=== PATIENT | female | born 1935 | race Caucasian/White ===

== ENCOUNTER 2017-06-05 09:32 | Emergency (ER) | payer MEDICARE ==
[~2017-06-05 09:32] MED LIST: COUM5TAB PO; FENO50TA PO; FISH1000 PO; METR250T15 PO; NIAC500 OR; SULF1TAB47 PO; TELM40 PO; WARF2.5 PO
[2017-06-05 09:37] VITALS: BP 143/65; PULSE 79; RESP 20; TEMP 97.9; O2SAT 94
[2017-06-05] MEDS ORDERED: MULT1TAB46 PO (09:49)
[2017-06-05] MEDS ORDERED: TELM5TAB PO (09:49)
[2017-06-05] MEDS ORDERED: ASPI-183 PO (09:49)
--- NOTE | 2017-06-05 10:44 | PD ---
HPI Chief Complaint: Abdominal Pain Time Seen by Provider: 10:42 Travel History International Travel<30 days: No Contact w/Intl Traveler<30days: No Traveled to known affect area: No History of Present Illness HPI 81-year-old female patient presents to the ER today because she has had several days' history of pelvic discomfort, vaginal brownish discharge, and burning on urination. She denies any nausea, vomiting, fevers, or any other symptoms. Modifying Factors: None Associated Signs & Symptoms: Vaginal discharge, urinary symptoms, pelvic discomfort Risk Factors: None PFSH Past Medical History Atrial Fibrillation: Yes Heart Rhythm Problems: Yes (A FIB) Cardiovascular Problems: Yes High Cholesterol: Yes Diabetes: No Diverticulitis: Yes Gastrointestinal Disorders: Yes (DIVERTICULITIS) Genitourinary: Yes (URGENCY) Headaches: Yes Hypertension: Yes Implanted Vascular Access Dvce: Yes Musculoskeletal: Yes (KNEES/SHOULDER SURG) Respiratory: Yes (NEW DX PULMONARY FIBROSIS) Thyroid Disease: Yes Triglycerides - High: Yes Past Surgical History Joint Replacement: Yes (KNEES) Other Surgery: Yes (IUD REMOVED "YEARS AGO") Social History Alcohol Use: Yes (RARE) Tobacco Use: No Substance Use: No Allergies-Medications (Allergen,Severity, Reaction): Coded Allergies: ampicillin (Unverified Allergy, Severe, 06/05/17) ciprofloxacin (Unverified Allergy, Severe, Rash, 06/05/17) levofloxacin (Unverified Allergy, Severe, Rash, 06/05/17) aspirin (Unverified Allergy, Intermediate, GASTRIC UPSET, 06/05/17) penicillin G (Unverified Allergy, Mild, Rash, 06/05/17) Reported Meds & Prescriptions Reported Meds & Active Scripts Active Reported Telmisartan 20 Mg Tab 20 Mg PO DAILY Aspirin 325 Mg Tab 325 Mg PO DAILY Multi Vitamin Daily (Multiple Vitamin) 1 Tab Tab 1 Tab PO DAILY Review of Systems Except as stated in HPI: all other systems reviewed are Neg Physical Exam Narrative GENERAL: Well-developed elderly white female patient currently in no acute distress. Awake and oriented 3. SKIN: Focused skin assessment warm/dry. HEAD: Atraumatic. Normocephalic. EYES: Pupils equal and round. No scleral icterus. No injection or drainage. ENT: No nasal bleeding or discharge. Mucous membranes pink and moist. NECK: Trachea midline. No JVD. CARDIOVASCULAR: Regular rate and rhythm. No murmur appreciated. RESPIRATORY: No accessory muscle use. Clear to auscultation. Breath sounds equal bilaterally. GASTROINTESTINAL: Abdomen soft, mild suprapubic tenderness without guarding or rebound, nondistended. Hepatic and splenic margins not palpable. GENITOURINARY: Normal external genitalia without lesions or erythema. Vaginal vault without blood or drainage. Cervical os was closed without drainage. No cervical motion tenderness. Uterus nontender and nonenlarged. Bilateral adnexa nontender without masses. MUSCULOSKELETAL: No obvious deformities. No clubbing. No cyanosis. No edema. NEUROLOGICAL: Awake and alert. No obvious cranial nerve deficits. Motor grossly within normal limits. Normal speech. PSYCHIATRIC: Appropriate mood and affect; insight and judgment normal. Data Data Last Documented VS Vital Signs Date Time Temp Pulse Resp B/P (MAP) Pulse Ox O2 Delivery O2 Flow Rate FiO2 06/05/17 09:37 97.9 79 20 143/65 (91) 94 Orders Orders Urinalysis - C+S If Indicated (06/05/17 09:49) Wet Prep Profile (06/05/17 11:09) Urine Culture (06/05/17 10:55) Labs Laboratory Tests Test 06/05/17 10:55 06/05/17 11:10 Urine Collection Type CLEAN CATCH Urine Color PINK Urine Turbidity MOD Urine pH 6.5 Urine Specific [place] 1.025 Urine Protein 100 mg/dL Urine Glucose (UA) NEG mg/dL Urine Ketones NEG mg/dL Urine Occult Blood LARGE Urine Nitrite NEG Urine Bilirubin NEG Urine Leukocyte Esterase LARGE Urine RBC INNUM /hpf Urine WBC 50-99 /hpf Urine Squamous Epithelial Cells > 8 /hpf Urine Bacteria MANY /hpf Microscopic Urinalysis Comment CULTURE INDICATED Urine Collection Time 10:55 Clue Cells (Wet Prep) NONE SEEN Vaginal Trichomonas (Wet Prep) NONE SEEN Vaginal Yeast (Wet Prep) NONE SEEN MDM Medical Decision Making Medical Screen Exam Complete: Yes Emergency Medical Condition: Yes Medical Record Reviewed: Yes Differential Diagnosis Pelvic discomfort, urinary symptoms, vaginal discharge: BV versus UTI versus vaginitis Narrative Course Pelvic exam is unremarkable for any signs of bleeding. She has a significant UTI which is suspect is was causing some of the symptoms. My plan would be to treat her UTI and have her follow-up with her primary care doctor. Return for new issues as needed. The plan has been discussed with her and she states understanding. Diagnosis Primary Impression: UTI (urinary tract infection) Med/Other Pt SpecificInfo: Prescription(s) given Scripts Nitrofurantoin Monohydrate Macrocrystals (Macrobid) 100 Mg Cap 100 MG PO BID for Infection for 7 Days, #14 CAP 0 Refills Prov: Perfecto Patton MD 06/05/17 Disposition: 01 DISCHARGE HOME Condition: Stable Perfecto Patton MD Jun 05, 2017 10:44
[2017-06-05 11:06] LABS: BILIRUBIN, URINE NEG (NEG); BLOOD, URINE LARGE (NEG); GLUCOSE,URINE NEG (NEG); KETONE, URINE NEG (NEG); NITRITE,URINE NEG (NEG); PH, URINE 6.5 (5.0-8.5); URINE LEUKOCYTE ESTERASE LARGE (NEG)
[2017-06-05 11:11] LABS: URINE COLOR PINK (YELLW/STRAW)
[2017-06-05 11:12] LABS: BACTERIA, URINE MANY /hpf; RBC, URINE INNUM /hpf (0-3); SQUAMOUS EPITHELIAL CELL URINE > 8 /hpf (0-5)
[2017-06-05] MEDS ORDERED: MACR100C2 PO (11:22)
[2017-06-15] MEDS ORDERED: Vitamins (13:55)
== END 2017-06-05 11:34 | disposition home or self-care (01) ==
LOC: PHED 09:32
DX: N39.0 Urinary tract infection, site not specified (principal); B96.20 Unspecified Escherichia coli [E. coli] as the cause of diseases classified elsewhere
CPT/HCPCS: 81001; 87077; 87086; 87186; 87210; 99284

== ENCOUNTER 2017-06-15 13:33 | Emergency (ER) | payer MEDICARE ==
[~2017-06-15] VITALS: Ht 152.4 cm; Wt 53.2 kg
[~2017-06-15 13:33] MED LIST changes: +ASPI-183 PO; -COUM5TAB PO; -FENO50TA PO; -FISH1000 PO; +MACR100C2 PO; -METR250T15 PO; +MULT1TAB46 PO; -NIAC500 OR; -SULF1TAB47 PO; -TELM40 PO; +TELM5TAB PO; -WARF2.5 PO
[2017-06-15 13:37] VITALS: BP 118/68; PULSE 113; RESP 18; TEMP 98; O2SAT 95
--- NOTE | 2017-06-15 13:53 | PD ---
HPI Chief Complaint: Complaint Time Seen by Provider: 13:42 Travel History International Travel<30 days: No Contact w/Intl Traveler<30days: No Traveled to known affect area: No History of Present Illness HPI The patient is a 81-year-old female who presents to the emergency department for dysuria. The patient was seen in the emergency department at the end of May diagnosed with urinary tract infection. The patient was placed on Macrobid, however, her symptoms did not improve. The patient was seen by her primary physician, Dr. Singh, on June 10 and was changed to Bactrim DS twice a day. The patient has been taking the antibiotics for the last 5-6 days, however, continues to have symptoms. She also complains of mild vaginal discharge which she describes as brown, occasionally brown clumps are noted in the urine. She denies any bleeding, denies any fever, nausea, or vomiting. She does complain of discomfort around the vaginal orifice when urinating. Symptoms are mild to moderate, not alleviated with Macrobid or Escherichia coli, and there are no known exacerbating factors. The patient denies any sexual activity. PFSH Past Medical History Atrial Fibrillation: Yes Heart Rhythm Problems: Yes (A FIB) Cardiovascular Problems: Yes High Cholesterol: Yes Diabetes: No Diverticulitis: Yes Gastrointestinal Disorders: Yes (DIVERTICULITIS) Genitourinary: Yes (URGENCY) Headaches: Yes Hypertension: Yes Implanted Vascular Access Dvce: Yes Musculoskeletal: Yes (KNEES/SHOULDER SURG) Respiratory: Yes (NEW DX PULMONARY FIBROSIS) Thyroid Disease: Yes Triglycerides - High: Yes ?: Not Past Surgical History Joint Replacement: Yes (KNEES) Other Surgery: Yes (IUD REMOVED "YEARS AGO") Social History Alcohol Use: Yes (RARE) Tobacco Use: No Substance Use: No Allergies-Medications (Allergen,Severity, Reaction): Coded Allergies: ampicillin (Verified Allergy, Severe, 06/15/17) ciprofloxacin (Verified Allergy, Severe, Rash, 06/15/17) levofloxacin (Verified Allergy, Severe, Rash, 06/15/17) aspirin (Verified Allergy, Intermediate, GASTRIC UPSET, 06/15/17) penicillin G (Verified Allergy, Mild, Rash, 06/15/17) Reported Meds & Prescriptions Reported Meds & Active Scripts Active [place] (Hydrocodone-Acetaminophen) 5-325 mg Tab 1 Tab PO Q6H PRN Reported [Vitamins] Multi Vitamin Daily (Multiple Vitamin) 1 Tab Tab 1 Tab PO DAILY Review of Systems Except as stated in HPI: all other systems reviewed are Neg General / Constitutional: No: Fever Gastrointestinal: No: Nausea, Vomiting, Abdominal Pain Genitourinary: Positive: Dysuria, Pelvic Pain, Discharge Skin: No Rash, No Itching Physical Exam Narrative GENERAL: Awake, alert, pleasant 81-year-old female who appears her stated age and is in no acute respiratory distress. SKIN: Focused skin assessment warm/dry. HEAD: Atraumatic. Normocephalic. EYES: No injection or drainage. ENT: No nasal bleeding or discharge. Mucous membranes pink and moist. NECK: Trachea midline. No JVD. GASTROINTESTINAL: Abdomen soft, non-tender, nondistended. No rebound tenderness. No guarding or rigidity. Back: No CVA tenderness. Genitourinary: External examination was performed in the presence of a female nurse. External examination reveals an excoriated labia with visible drainage from the vaginal orifice. There appears to be green to brownish liquid drainage from the vagina, unsure if this is related to a vaginal/rectal fistula versus vaginal mass. The patient has significant pain and a speckled examination and digital examination were unable to be obtained. MUSCULOSKELETAL: No obvious deformities. No clubbing. No cyanosis. No edema. NEUROLOGICAL: Awake and alert. No obvious cranial nerve deficits. Motor grossly within normal limits. Normal speech. PSYCHIATRIC: Appropriate mood and affect; insight and judgment normal. Data Data Last Documented VS Vital Signs Date Time Temp Pulse Resp B/P (MAP) Pulse Ox O2 Delivery O2 Flow Rate FiO2 06/15/17 13:37 98.0 113 18 118/68 (85) 95 Orders Orders Wet Prep Profile (06/15/17 14:37) Labs Laboratory Tests Test 06/15/17 14:44 Clue Cells (Wet Prep) NONE SEEN Vaginal Trichomonas (Wet Prep) NONE SEEN Vaginal Yeast (Wet Prep) NONE SEEN MDM Medical Decision Making Medical Screen Exam Complete: Yes Emergency Medical Condition: Yes Medical Record Reviewed: Yes Interpretation(s) Laboratory Tests Test 06/15/17 14:44 Clue Cells (Wet Prep) NONE SEEN Vaginal Trichomonas (Wet Prep) NONE SEEN Vaginal Yeast (Wet Prep) NONE SEEN Differential Diagnosis Differential diagnosis includes UTI, cystitis, nephrolithiasis, cervicitis, vaginitis, yeast infection, bacterial vaginosis. Narrative Course A UA was sent to lab. An external pelvic examination was performed in the presence of a female nurse. I reviewed the patient's EMR, she had a UA obtained and May 2017 which revealed innumerable RBCs, did reveal WBCs with bacteria, grew Escherichia coli that was pansensitive, was noted to be sensitive to Macrobid and Bactrim. Physical examination reveals drainage from the vaginal orifice, unsure if this is related to official between the rectum and vagina versus possibly underlying necrotic mass. The patient had a significant excoriation to the labia and was unable to tolerate speculum examination or visual examination. I believe the patient's previous UAs may be falsely positive secondary to fistula with possible stool that most of the drainage was liquid that was green to brown. I personally called the patient's primary physician, Dr. Jimmy jordan, and had a discussion with Dr. Singh. The patient will need outpatient follow-up with a roof foreman for examination under sedation to evaluate for possible mass versus fistula. Wet prep was obtained and will be sent to lab, however, I believe this is most likely related to fistula and excoriated skin. Wet prep is negative. The patient is advised to continue Bactrim and a follow-up with Dr. Singh tomorrow. Diagnosis Primary Impression: Pelvic pain in female Patient Instructions: General Instructions Additional Instructions: Continue antibiotics as previously directed. Pain medications as directed. Call Dr. Singh office on Friday for an appointment, may benefit from outpatient exam under sedation to evaluate for possible fistula versus mass. Med/Other Pt SpecificInfo: Prescription(s) given Scripts Hydrocodone-Acetaminophen ([place]) 5-325 mg Tab 1 TAB PO Q6H Y for PAIN, #15 TAB 0 Refills Prov: Kevin Campbell MD 06/15/17 Disposition: 01 DISCHARGE HOME Condition: Stable Kevin Campbell MD Jun 15, 2017 13:53
[2017-06-15] MEDS ORDERED: Vitamins ×2 (13:55)
[2017-06-15] MEDS ORDERED: NORC5TAB PO (14:47)
== END 2017-06-15 15:36 | disposition home or self-care (01) ==
LOC: PHED 13:33
DX: R10.2 Pelvic and perineal pain (principal); R30.0 Dysuria; R82.99 Other abnormal findings in urine; N89.8 Other specified noninflammatory disorders of vagina; I10 Essential (primary) hypertension; E07.9 Disorder of thyroid, unspecified; E78.5 Hyperlipidemia, unspecified; Z87.440 Personal history of urinary (tract) infections; Z86.79 Personal history of other diseases of the circulatory system; Z87.19 Personal history of other diseases of the digestive system; Z87.448 Personal history of other diseases of urinary system; Z87.39 Personal history of other diseases of the musculoskeletal system and connective tissue; Z87.09 Personal history of other diseases of the respiratory system
CPT/HCPCS: 87210; 99284

== ENCOUNTER 2017-06-27 10:34 | Inpatient (IN) | payer MEDICARE ==
[~2017-06-27] VITALS: Ht 152.4 cm; Wt 53.2 kg
[~2017-06-27 10:34] MED LIST changes: +NORC5TAB PO; +Vitamins
[2017-06-27 10:35] VITALS: BP 124/52; PULSE 64; RESP 14; TEMP 97.9; O2SAT 95
[2017-06-27] MEDS ORDERED: SODIUM CHLOR 0.9% 1000 ML INJ 1,000 ML IV ONE (11:15)
--- NOTE | 2017-06-27 11:26 | PD ---
HPI Chief Complaint: Fever Time Seen by Provider: 11:05 Travel History International Travel<30 days: No Contact w/Intl Traveler<30days: No Traveled to known affect area: No History of Present Illness HPI 81-year-old female PMH of paroxysmal A. fib, hypertension, diverticulitis, pulmonary fibrosis presents to the ED for evaluation of three-week history of passing stool through the urine. The patient endorses associated urinary urgency and passing gas through the vagina. She denies nausea, vomiting, abdominal pain. She endorses loose nonbloody bowel movement yesterday. She saw her primary care Dr. Singh and had an outpatient CT yesterday. 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 She was sent by Dr. Singh for admission and colorectal consult. PFSH Past Medical History Atrial Fibrillation: Yes Heart Rhythm Problems: Yes (A FIB) Cardiovascular Problems: Yes High Cholesterol: Yes Diabetes: No Diminished Hearing: No Diverticulitis: Yes Gastrointestinal Disorders: Yes (DIVERTICULITIS) Genitourinary: Yes (URGENCY) Headaches: Yes Hypertension: Yes Implanted Vascular Access Dvce: Yes Musculoskeletal: Yes (KNEES/SHOULDER SURG) Respiratory: Yes (NEW DX PULMONARY FIBROSIS) Thyroid Disease: Yes Triglycerides - High: Yes Past Surgical History Joint Replacement: Yes (KNEES) Other Surgery: Yes (IUD REMOVED "YEARS AGO") Social History Alcohol Use: Yes (RARE) Tobacco Use: No Substance Use: No Allergies-Medications (Allergen,Severity, Reaction): Coded Allergies: ampicillin (Verified Allergy, Severe, 06/15/17) ciprofloxacin (Verified Allergy, Severe, Rash, 06/15/17) levofloxacin (Verified Allergy, Severe, Rash, 06/15/17) Reported Meds & Prescriptions Reported Meds & Active Scripts Active [place] (Hydrocodone-Acetaminophen) 5-325 mg Tab 1 Tab PO Q6H PRN Reported Telmisartan 20 Mg Tab 20 Mg PO DAILY Aspirin EC (Aspirin) 325 Mg Tabdr 325 Mg PO DAILY [Vitamins] Multi Vitamin Daily (Multiple Vitamin) 1 Tab Tab 1 Tab PO DAILY Review of Systems Except as stated in HPI: all other systems reviewed are Neg Physical Exam Narrative GENERAL: Petite, frail white female in no acute distress.. SKIN: Focused skin assessment warm/dry. Multiple nevi HEAD: Normocephalic. EYES: No scleral icterus. No injection or drainage. NECK: Supple, trachea midline. No JVD or lymphadenopathy. CARDIOVASCULAR: Regular rate and rhythm without murmurs, gallops, or rubs. RESPIRATORY: Breath sounds clear and equal bilaterally. No accessory muscle use. GASTROINTESTINAL: Abdomen soft, non-tender, nondistended. Hypoactive bowel sounds. Deep palpation of the lower belly produces flatulence through the vagina. MUSCULOSKELETAL: No cyanosis, or edema. BACK: Nontender without obvious deformity. No CVA tenderness. Data Data Last Documented VS Vital Signs Date Time Temp Pulse Resp B/P (MAP) Pulse Ox O2 Delivery O2 Flow Rate FiO2 06/27/17 14:08 72 18 139/60 (86) 94 Room Air 06/27/17 11:31 3.00 06/27/17 11:31 98.2 Orders Orders Electrocardiogram (06/27/17 11:11) Complete Blood Count With Diff (06/27/17 11:11) Comprehensive Metabolic Panel (06/27/17 11:11) Prothrombin Time / Inr (Pt) (06/27/17 11:11) Act Partial Throm Time (Ptt) (06/27/17 11:11) Lactic Acid Sepsis Protocol (06/27/17 11:11) Blood Culture (06/27/17 11:11) Chest, Single Ap (06/27/17 11:11) Blood Glucose (06/27/17 11:11) Ecg Monitoring (06/27/17 11:11) Iv Access Insert/Monitor (06/27/17 11:11) Oximetry (06/27/17 11:11) Sodium Chlor 0.9% 1000 Ml Inj (Ns 1000 M (06/27/17 11:15) Admit Order (Ed Use Only) (06/27/17 14:25) Labs Laboratory Tests Test 06/27/17 11:54 06/27/17 13:07 White Blood Count 8.9 TH/MM3 Red Blood Count 4.30 MIL/MM3 Hemoglobin 13.2 GM/DL Hematocrit 39.1 % Mean Corpuscular Volume 90.9 FL Mean Corpuscular Hemoglobin 30.6 PG Mean Corpuscular Hemoglobin Concent 33.7 % Red Cell Distribution Width 13.8 % Platelet Count 481 TH/MM3 Mean Platelet Volume 9.2 FL Neutrophils (%) (Auto) 62.1 % Lymphocytes (%) (Auto) 23.5 % Monocytes (%) (Auto) 9.6 % Eosinophils (%) (Auto) 4.1 % Basophils (%) (Auto) 0.7 % Neutrophils # (Auto) 5.6 TH/MM3 Lymphocytes # (Auto) 2.1 TH/MM3 Monocytes # (Auto) 0.9 TH/MM3 Eosinophils # (Auto) 0.4 TH/MM3 Basophils # (Auto) 0.1 TH/MM3 CBC Comment DIFF FINAL Differential Comment Prothrombin Time 11.9 SEC Prothromb Time International Ratio 1.1 RATIO Activated Partial Thromboplast Time 27.3 SEC Blood Urea Nitrogen 14 MG/DL Creatinine 1.02 MG/DL Random Glucose 92 MG/DL Total Protein 8.1 GM/DL Albumin 3.0 GM/DL Calcium Level 10.1 MG/DL Alkaline Phosphatase 75 U/L Aspartate Amino Transf (AST/SGOT) 16 U/L Alanine Aminotransferase (ALT/SGPT) 13 U/L Total Bilirubin 0.4 MG/DL Sodium Level 135 MEQ/L Potassium Level 4.1 MEQ/L Chloride Level 102 MEQ/L Carbon Dioxide Level 25.2 MEQ/L Anion Gap 8 MEQ/L Estimat Glomerular Filtration Rate 52 ML/MIN Lactic Acid Level 2.2 mmol/L MDM Medical Decision Making Medical Screen Exam Complete: Yes Emergency Medical Condition: Yes Differential Diagnosis Diverticulitis versus colovesical fistula versus UTI versus sepsis versus other Narrative Course 81-year-old female PMH of paroxysmal A. fib, hypertension, diverticulitis, pulmonary fibrosis presents to the ED for evaluation of three-week history of passing stool through the urine. The patient endorses associated urinary urgency and passing gas through the vagina. She denies nausea, vomiting, abdominal pain. She endorses loose nonbloody bowel movement yesterday. She saw her primary care Dr. Singh and had an outpatient CT yesterday. 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 She was sent by Dr. Singh for admission and colorectal consult. I spoke with Dr. Singh who states that the patient has had some deterioration in her mental status over the last few visits. Her reports intermittent fever. Dr. Singh is concerned for sepsis. He states that the patient is almost completely dependent on her , cannot remember recent events and is generally deteriorating. The patient does rely on her to provide the history here in the ED. She is oriented to self and situation. Vitals reviewed. Physical exam reveals a thin, frail white female in no acute distress. Chest is CTA B. Abdomen soft, nontender. Palpation of the abdomen produces flatulence through the vagina. IV was established. Patient was administered 1 L normal saline. EKG rate 75, sinus rhythm first-degree AV block with occasional PVCs. LAD. No acute ST changes. Reviewed by Dr. Hess. CXR: Streaky interstitial opacities in both forearms, chronicity unknown per radiology read. No elevation of white count, evidence of anemia. Creatinine 1.02 Lactic acid 2.2. Urinalysis is unable to be performed secondary to the viscosity of the specimen. Culture pending. I spoke with Dr. Aponte who agrees to accept the patient to the medicine service. He'll order a colorectal consult. The patient is agreeable with this plan. Please see medicine notes for disposition. Sonia Medeiros Jun 27, 2017 11:26
[2017-06-27 11:31] VITALS: BP 112/64; PULSE 63; RESP 18; TEMP 98.2; O2SAT 96
[2017-06-27] MEDS ORDERED: TELM5TAB PO ×2 (11:41)
[2017-06-27] MEDS ORDERED: ASPI325T33 PO ×2 (11:41)
--- NOTE | 2017-06-27 11:53 | RADRPT ---
EXAM DATE/TIME: 06/27/2017 11:28 [facility] COMPARISON: No previous studies available for comparison. INDICATIONS : Fever, short of breath, lower abdominal pain MEDICAL HISTORY : Diverticulosis. SURGICAL HISTORY : None. ENCOUNTER: Initial ACUITY: 1 day PAIN SCORE: Non-responsive. LOCATION: Bilateral abdomen FINDINGS: A single AP portable erect view of the chest was obtained and demonstrates streaky coarse interstitia l opacities in both lungs with no focal consolidation or effusion. The heart size is at the upper [place] its of normal. Thereafter cruller maker calcifications in the aorta. The bony thorax is intact. CONCLUSION: Streaky interstitial opacities in both lungs. The chronicity of the findings is not k nown. This could represent more acute infiltrate such as pneumonia or pulmonary edema versus chronic scarring. Comparison with any old outside studies would be helpful. Sanket Recinos MD on June 27, 2017 at 11:49 Board Certified Radiologist. This report was verified electronically.
[2017-06-27 12:07] LABS: AUTOMATED NEUTROPHIL # 5.6 TH/MM3 (1.8-7.7); BASOPHIL # 0.1 TH/MM3 (0-0.2); BASOPHIL % 0.7 % (0.0-2.0); EOSINOPHIL # 0.4 TH/MM3 (0-0.4); EOSINOPHIL % 4.1 % (0.0-4.0); HEMATOCRIT 39.1 % (35.0-46.0); HEMO FLAGS DIFF FINAL; LYMPH % 23.5 % (9.0-44.0); LYMPHOCYTE # 2.1 TH/MM3 (1.0-4.8); MEAN CELL VOLUME 90.9 FL (80.0-100.0); MEAN CORPUSCULAR HEMOGLOBIN 30.6 PG (27.0-34.0); MEAN CORPUSCULAR HGB CONC 33.7 % (32.0-36.0); MONO % 9.6 % (0.0-8.0); NEUT % 62.1 % (16.0-70.0); PLATELET COUNT 481 TH/MM3 (150-450); RED CELL DISTRIBUTION WIDTH 13.8 % (11.6-17.2); WHITE BLOOD COUNT 8.9 TH/MM3 (4.0-11.0)
[2017-06-27 12:17] LABS: APTT (PATIENT) 27.3 SEC (24.3-30.1); INTERNATIONAL NORMALIZED RATIO 1.1 RATIO; PROTHROMBIN TIME - PATIENT 11.9 SEC (9.8-11.6)
[2017-06-27 14:00] LABS: ALT (GPT) 13 U/L (10-53); ANION GAP 8 MEQ/L (5-15); AST (GOT) 16 U/L (15-37); BICARBONATE 25.2 MEQ/L (21.0-32.0); BLOOD UREA NITROGEN 14 MG/DL (7-18); CHLORIDE 102 MEQ/L (98-107); GLOMERULAR FILTRATION RATE 52 ML/MIN (>89); POTASSIUM 4.1 MEQ/L (3.5-5.1); SODIUM (NA) 135 MEQ/L (136-145)
[2017-06-27 14:02] LABS: ALKALINE PHOSPHATASE 75 U/L (45-117); TOTAL BILIRUBIN ADULT 0.4 MG/DL (0.2-1.0)
[2017-06-27 14:08] VITALS: BP 139/60; PULSE 72; RESP 18; O2SAT 94
[2017-06-27 15:17] LABS: LACTIC ACID GHOST NOT REPORTABLE
--- NOTE | 2017-06-27 15:44 | HHI.HP ---
HPI Service [facility] Primary Care Physician Ede Singh MD, PhD Admission Diagnosis colovesical fistula Chief Complaint: f/c, confused shaking Travel History International Travel<30 Days: No Contact w/Intl Traveler <30 Da: No Traveled to Known Affected Are: No History of Present Illness Pt with hx afib and htn presents with 3 weeks of uti sx's and stool passing from the urine. she was seen and urine cx showed ecoli on 06/05. she was started on nitrofurantoin, changed to bactrim, then amoxicillin. yesterday she was sent to radiology and had CT a/p yesterday which showed diverticulosis and colovesicular fistula. She has been having shaking chills and fevers. says some confusion. Sent to ED to see CRS per pcp. Review of Systems Other f/c/shaking confusion stool in urine. Past Family Social History Past Medical History htn afib chf EF 25-30% echo 04/26 10/25..ef 30-35%. mod MR. pap 32 pulmonary fibrosis pulmonary nodules hyperparathyroidism depression ckd 3 melanoma shoulder arthropscopic surgery bilateral TKA diverticulosis/itis pt reports colonoscopy 2013: pandiverticulosis severe. Reported Medications Mccool (Hydrocodone-Acetaminophen) 5-325 mg Tab 1 Tab PO Q6H PRN Reported Telmisartan 20 Mg Tab 20 Mg PO DAILY Aspirin EC (Aspirin) 325 Mg Tabdr 325 Mg PO DAILY [Vitamins] Multi Vitamin Daily (Multiple Vitamin) 1 Tab Tab 1 Tab PO DAILY Allergies: Coded Allergies: ampicillin (Verified Allergy, Severe, 06/15/17) ciprofloxacin (Verified Allergy, Severe, Rash, 06/15/17) levofloxacin (Verified Allergy, Severe, Rash, 06/15/17) Family History nc Social History no tob occ etoh Physical Exam Vital Signs heart irreg lung cta abd s/nd/mild lower abd tenderness.bs ext no edema Vital Signs Date Time Temp Pulse Resp B/P (MAP) Pulse Ox O2 Delivery O2 Flow Rate FiO2 06/27/17 14:08 72 18 139/60 (86) 94 Room Air 06/27/17 11:31 18 Nasal Cannula 3.00 06/27/17 11:31 71 18 97 Nasal Cannula 2.00 06/27/17 11:31 98.2 63 18 112/64 (80) 96 Nasal Cannula 2.00 06/27/17 10:35 97.9 64 14 124/52 (76) 95 Laboratory Laboratory Tests Test 06/27/17 11:54 06/27/17 13:07 White Blood Count 8.9 Red Blood Count 4.30 Hemoglobin 13.2 Hematocrit 39.1 Mean Corpuscular Volume 90.9 Mean Corpuscular Hemoglobin 30.6 Mean Corpuscular Hemoglobin Concent 33.7 Red Cell Distribution Width 13.8 Platelet Count 481 Mean Platelet Volume 9.2 Neutrophils (%) (Auto) 62.1 Lymphocytes (%) (Auto) 23.5 Monocytes (%) (Auto) 9.6 Eosinophils (%) (Auto) 4.1 Basophils (%) (Auto) 0.7 Neutrophils # (Auto) 5.6 Lymphocytes # (Auto) 2.1 Monocytes # (Auto) 0.9 Eosinophils # (Auto) 0.4 Basophils # (Auto) 0.1 CBC Comment DIFF FINAL Differential Comment Prothrombin Time 11.9 Prothromb Time International Ratio 1.1 Activated Partial Thromboplast Time 27.3 Blood Urea Nitrogen 14 Creatinine 1.02 Random Glucose 92 Total Protein 8.1 Albumin 3.0 Calcium Level 10.1 Alkaline Phosphatase 75 Aspartate Amino Transf (AST/SGOT) 16 Alanine Aminotransferase (ALT/SGPT) 13 Total Bilirubin 0.4 Sodium Level 135 Potassium Level 4.1 Chloride Level 102 Carbon Dioxide Level 25.2 Anion Gap 8 Estimat Glomerular Filtration Rate 52 Lactic Acid Level 2.2 Date/Time Source Procedure Growth Status 06/27/17 11:51 Blood Peripheral Aerobic Blood Culture Pending Received 06/27/17 11:51 Blood Peripheral Anaerobic Blood Culture Pending Received Result Diagram: 06/27/17 1154 06/27/17 1154 Caprini VTE Risk Assessment Caprini Risk Assessment Model Point Value = 1 Point Value = 2 Point Value = 3 Point Value = 5 Age 41-60 Minor surgery BMI > 25 kg/m2 Swollen legs Varicose veins or History of unexplained or recurrent spontaneous Oral contraceptives or hormone replacement Sepsis (< 1 month) Serious lung disease, including pneumonia (< 1 month) Abnormal pulmonary function Acute myocardial infarction Congestive heart failure (< 1 month) History of inflammatory bowel disease Medical patient at bed rest Age 61-74 Arthroscopic surgery Major open surgery (> 45 min) Laparoscopic surgery (> 45 min) Malignancy Confined to bed (> 72 hours) Immobilizing plaster cast Central venous access Age >= 75 History of VTE Family history of VTE Factor V Leiden Prothrombin [id number] Lupus anticoagulant Anticardiolipin antibodies Elevated serum homocysteine Heparin-induced thrombocytopenia Other congenital or acquired thrombophilia Stroke (< 1 month) Elective arthroplasty Hip, pelvis, or leg fracture Acute spinal cord injury (< 1 month) Prophylaxis Regimen Total Risk Factor Score Risk Level Prophylaxis Regimen 0-1 Low Early ambulation 2 Moderate Order ONE of the following: *Sequential Compression Device (SCD) *Heparin 5000 units SQ BID 3-4 Higher Order ONE of the following medications: *Heparin 5000 units SQ TID *Enoxaparin/Lovenox 40 mg SQ daily (WT < 150 kg, CrCl > 30 mL/min) *Enoxaparin/Lovenox 30 mg SQ daily (WT < 150 kg, CrCl > 10-29 mL/min) *Enoxaparin/Lovenox 30 mg SQ BID (WT < 150 kg, CrCl > 30 mL/min) AND/OR *Sequential Compression Device (SCD) 5 or more Highest Order ONE of the following medications: *Heparin 5000 units SQ TID (Preferred with Epidurals) *Enoxaparin/Lovenox 40 mg SQ daily (WT < 150 kg, CrCl > 30 mL/min) *Enoxaparin/Lovenox 30 mg SQ daily (WT < 150 kg, CrCl > 10-29 mL/min) *Enoxaparin/Lovenox 30 mg SQ BID (WT < 150 kg, CrCl > 30 mL/min) AND *Sequential Compression Device (SCD) Assessment and Plan Problem List: (1) 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 colovesicular fistula. hx severe pandiverticulosis last c-scope 2012 3 weeks of uti sx's(ecoli 06/05) and now f/c/rigors. concern for bacteremia 2. systolic chf. chronic. compensated. EF 30-35% 3. ckd 3 4. pafib. controlled 5. depression 6. pulmonary nodules/fibrosis plan IVF and IV abx Place montiel catheter Discussed with CRS dr Orr who will evaluate her. resume home medication dvt prophylaxis f/u blood cx's (2) Afib ICD Codes: I48.91 - Unspecified atrial fibrillation Status: Chronic (3) CKD (chronic kidney disease) stage 3, GFR 30-59 ml/min ICD Codes: N18.3 - Chronic kidney disease, stage 3 (moderate) Status: Chronic (4) CHF (congestive heart failure) ICD Codes: I50.9 - Heart failure, unspecified Status: Chronic (5) HTN (hypertension) ICD Codes: I10 - Essential (primary) hypertension Status: Chronic Physician Certification 2 Midnight Certification Type: Admission for Inpatient Services Order for Inpatient Services 5The services are ordered in accordance with Medicare regulations or non- Medicare payer requirements, as applicable. In the case of services not specified as inpatient-only, they are appropriately provided as inpatient services in accordance with the 2-midnight benchmark. Estimated LOS (days): 5 5 days is the estimated time the patient will need to remain in the hospital, assuming treatment plan goals are met and no additional complications. Post-Hospital Plan: [facility] Ray Aponte MD Jun 27, 2017 15:44
[2017-06-27] MEDS ORDERED: SODIUM CHLOR 0.9% 1000 ML INJ 1,000 ML IV SCH (15:45)
[2017-06-27] MEDS ORDERED: ACETAMINOPHEN/HYDROcodone 325 MG/5 MG TAB PO PRN (15:45)
[2017-06-27] MEDS ORDERED: ONDANSETRON HCL 4 MG/2 ML VIAL IV PUSH PRN (16:00)
[2017-06-27] MEDS ORDERED: ACETAMINOPHEN 325 MG TAB PO PRN (16:00)
[2017-06-27] MEDS: SODIUM CHLOR 0.9% 1000 ML INJ 1,000 ML IV SCH (16:00)
[2017-06-27 17:00] VITALS: BP 123/56; PULSE 69; RESP 17; TEMP 97.5; O2SAT 93
[2017-06-27] MEDS: cefTRIAXone INJ 1,000 MG in SODIUM CHLORIDE 0.9% INJ 100 ML IV SCH (18:08)
--- NOTE | 2017-06-27 18:22 | EKG ---
Date Performed: 06/27/2017 Time Performed: 11:39:59 PTAGE: 81 years EKG: Sinus rhythm WITH FIRST DEGREE AV BLOCK WITH OCCASIONAL SUPRAVENTRICULAR PREMATURE COMPLEXES MARKED LEFT AXIS DEV IATION LOW QRS VOLTAGE IN PRECORDIAL LEADS PATTERN CONSISTENT WITH PULMONARY DISEASE POSSIBLE RIGHT V ENTRICULAR CONDUCTION DELAY ABNORMAL ECG Compared to PREVIOUS TRACING , the PVCs are no longer present, otherwise no significant change. There is poor R-wave progression across precordium which has not changed. PREVIOUS TRACIN08/12/2012 12. 12 DOCTOR: Ray King Interpretating Date/Time 06/27/2017 18:21:50
[2017-06-27 20:00] VITALS: BP 118/56; PULSE 56; RESP 19; TEMP 96.4; O2SAT 95
--- NOTE | 2017-06-27 23:05 | HHI.PR ---
Subjective Remarks C/R Surg H & P reviewed 81 Yo w female with 3 week hx abd pain, then fecaluria no BRB, N/V, ? fever/chills Objective - Vital Signs Date Time Temp Pulse Resp B/P (MAP) Pulse Ox O2 Delivery O2 Flow Rate FiO2 06/27/17 20:00 96.4 56 19 118/56 (76) 95 06/27/17 14:08 Room Air 06/27/17 11:31 3.00 Result Diagram: 06/27/17 1154 06/27/17 1154 Objective Remarks Pe alert Abd - soft, mildly tender LLQ, no mass, no guarding A/P Assessment and Plan Imp: Diverticulitis with colo-vesicle fistula non-toxic exam try montiel to clean out bladder OOB empiric Ab's Carlo Orr MD Jun 27, 2017 23:05
[2017-06-28] VITALS: BP 123/56; PULSE 81; RESP 19; TEMP 97.2; O2SAT 95
[2017-06-28] MEDS: SODIUM CHLOR 0.9% 1000 ML INJ 1,000 ML IV SCH (05:20)
[2017-06-28 06:57] LABS: AUTOMATED NEUTROPHIL # 3.7 TH/MM3 (1.8-7.7); BASOPHIL # 0.1 TH/MM3 (0-0.2); BASOPHIL % 1.2 % (0.0-2.0); EOSINOPHIL # 0.6 TH/MM3 (0-0.4); EOSINOPHIL % 9.1 % (0.0-4.0); HEMATOCRIT 30.5 % (35.0-46.0); HEMO FLAGS DIFF FINAL; LYMPH % 22.5 % (9.0-44.0); LYMPHOCYTE # 1.5 TH/MM3 (1.0-4.8); MEAN CELL VOLUME 91.2 FL (80.0-100.0); MEAN CORPUSCULAR HEMOGLOBIN 30.2 PG (27.0-34.0); MEAN CORPUSCULAR HGB CONC 33.2 % (32.0-36.0); MONO % 12.5 % (0.0-8.0); NEUT % 54.7 % (16.0-70.0); PLATELET COUNT 367 TH/MM3 (150-450); RED BLOOD COUNT 3.34 MIL/MM3 (4.00-5.30); RED CELL DISTRIBUTION WIDTH 13.2 % (11.6-17.2); WHITE BLOOD COUNT 6.8 TH/MM3 (4.0-11.0)
[2017-06-28 07:19] LABS: BICARBONATE 25.6 MEQ/L (21.0-32.0); POTASSIUM 4.1 MEQ/L (3.5-5.1)
[2017-06-28 08:00] VITALS: BP 107/53; PULSE 63; RESP 14; TEMP 97.6; O2SAT 95
[2017-06-28] MEDS ORDERED: LOSARTAN 25 MG TAB PO SCH (09:00)
--- NOTE | 2017-06-28 10:05 | HHI.PR ---
Subjective Remarks Pt complaints of discomfort from the Montiel Catheter Pt with feculant urine in Montiel bag Afebrile Objective Vitals Vital Signs Date Time Temp Pulse Resp B/P (MAP) Pulse Ox O2 Delivery O2 Flow Rate FiO2 06/28/17 08:00 97.6 63 14 107/53 (71) 95 06/28/17 00:00 97.2 81 19 123/56 (78) 95 06/27/17 20:00 96.4 56 19 118/56 (76) 95 06/27/17 17:00 97.5 69 17 123/56 (78) 93 06/27/17 14:08 72 18 139/60 (86) 94 Room Air 06/27/17 11:31 18 Nasal Cannula 3.00 06/27/17 11:31 71 18 97 Nasal Cannula 2.00 06/27/17 11:31 98.2 63 18 112/64 (80) 96 Nasal Cannula 2.00 06/27/17 10:35 97.9 64 14 124/52 (76) 95 Result Diagram: 06/28/17 0635 06/28/17 0635 Other Results Laboratory Tests Test 06/27/17 11:54 06/27/17 13:07 06/28/17 06:35 White Blood Count 8.9 TH/MM3 6.8 TH/MM3 Red Blood Count 4.30 MIL/MM3 3.34 MIL/MM3 Hemoglobin 13.2 GM/DL 10.1 GM/DL Hematocrit 39.1 % 30.5 % Mean Corpuscular Volume 90.9 FL 91.2 FL Mean Corpuscular Hemoglobin 30.6 PG 30.2 PG Mean Corpuscular Hemoglobin Concent 33.7 % 33.2 % Red Cell Distribution Width 13.8 % 13.2 % Platelet Count 481 TH/MM3 367 TH/MM3 Mean Platelet Volume 9.2 FL 8.2 FL Neutrophils (%) (Auto) 62.1 % 54.7 % Lymphocytes (%) (Auto) 23.5 % 22.5 % Monocytes (%) (Auto) 9.6 % 12.5 % Eosinophils (%) (Auto) 4.1 % 9.1 % Basophils (%) (Auto) 0.7 % 1.2 % Neutrophils # (Auto) 5.6 TH/MM3 3.7 TH/MM3 Lymphocytes # (Auto) 2.1 TH/MM3 1.5 TH/MM3 Monocytes # (Auto) 0.9 TH/MM3 0.8 TH/MM3 Eosinophils # (Auto) 0.4 TH/MM3 0.6 TH/MM3 Basophils # (Auto) 0.1 TH/MM3 0.1 TH/MM3 CBC Comment DIFF FINAL DIFF FINAL Differential Comment Prothrombin Time 11.9 SEC Prothromb Time International Ratio 1.1 RATIO Activated Partial Thromboplast Time 27.3 SEC Blood Urea Nitrogen 14 MG/DL 13 MG/DL Creatinine 1.02 MG/DL 0.88 MG/DL Random Glucose 92 MG/DL 84 MG/DL Total Protein 8.1 GM/DL Albumin 3.0 GM/DL Calcium Level 10.1 MG/DL 9.3 MG/DL Alkaline Phosphatase 75 U/L Aspartate Amino Transf (AST/SGOT) 16 U/L Alanine Aminotransferase (ALT/SGPT) 13 U/L Total Bilirubin 0.4 MG/DL Sodium Level 135 MEQ/L 137 MEQ/L Potassium Level 4.1 MEQ/L 4.1 MEQ/L Chloride Level 102 MEQ/L 107 MEQ/L Carbon Dioxide Level 25.2 MEQ/L 25.6 MEQ/L Anion Gap 8 MEQ/L 4 MEQ/L Estimat Glomerular Filtration Rate 52 ML/MIN 62 ML/MIN Lactic Acid Level 2.2 mmol/L 0.7 mmol/L Imaging Last Impressions Chest X-Ray 06/27/17 1111 Signed Impressions: Service Date/Time: Tuesday, June 27, 2017 11:28 - CONCLUSION: Streaky interstitial opacities in both lungs. The chronicity of the findings is not known. This could represent more acute infiltrate such as pneumonia or pulmonary edema versus chronic scarring. Comparison with any old outside studies would be helpful. Sanket Recinos MD Objective Remarks General: NAD, AAOx3 Chest: CTA Cardiac: Regular Abd: +BS, soft ND/NT : Montiel cath in place with feculent urine in Montiel bag Ext: No edema A/P Problem List: (1) Colovesical fistula ICD Codes: N32.1 - Vesicointestinal fistula Status: Acute Plan: Pt is an 81 y/o female with HTN, A. fib, hx of systolic CHF with EF 30-35% on 2D echo 10/2016, pulmonary fibrosis, and hx of diverticulitis Colovesicular fistula Hx severe medina-diverticulosis - Pt presented to the ED with complaints of 3 weeks of UTI sx's and stool passing from the urine with fevers/chills/rigors. She was seen by her PCP and urine cx showed E. coli on 06/05. She was started on nitrofurantoin, changed to Bactrim, then amoxicillin on 06/25. The day prior to admission she was sent to radiology and had CT abd /pelvis which showed diverticulosis and colovesicular fistula. - Her Last c-scope was 2012 - Pt admitted with concerns for bacteremia - Blood cultures are pending - Pt was started on Rocephin - Appreciate Colorectal surgery consult - Montiel catheter in place, monitor output - IVF - Dr. Orr has cleared the pt for discharge. He wants the patient treated with Abx prior to any surgical intervention. We will have the nurse flush out as much feculent material from the montiel cath as she can and then remove the Montiel per Dr. Guevara recommendations. - Pt to be prescribed Bactrim DS x 7 days - She is to followup with Dr. Singh next week - She is to followup with Dr. Orr in the next 1-2 weeks for scheduling surgical intervention. - Supportive care Systolic CHF, chronic, currently compensated, EF 30-35% - Cont. ARB - Monitor for any signs of volume overload CKD, stage 3 - Stable Paroxysmal A.fib, currently rate controlled Depression Pulmonary nodules/fibrosis (2) Afib ICD Codes: I48.91 - Unspecified atrial fibrillation Status: Chronic (3) CKD (chronic kidney disease) stage 3, GFR 30-59 ml/min ICD Codes: N18.3 - Chronic kidney disease, stage 3 (moderate) Status: Chronic (4) CHF (congestive heart failure) ICD Codes: I50.9 - Heart failure, unspecified Status: Chronic (5) HTN (hypertension) ICD Codes: I10 - Essential (primary) hypertension Status: Chronic Assessment and Plan Patient examined. Assessment and plan formulated with Kristie Chin PA-C. I agree with the above. colovesicular fistula. blood cx ngtd recent urine cx ecoli Dr Orr ok with d/c home and f/u office for outpt arrangement for resection. Montiel placed and bladder flushed. Give iv abx again today and then resume bactrim instead of amoxacillin. updated . Kristie Chin Jun 28, 2017 10:05 Ray Aponte MD Jun 28, 2017 15:00
[2017-06-28 12:00] VITALS: BP 141/61; PULSE 67; RESP 16; TEMP 96.5; O2SAT 95
[2017-06-28] MEDS ORDERED: BACT800T5 PO (13:06)
[2017-06-28] MEDS: cefTRIAXone INJ 1,000 MG in SODIUM CHLORIDE 0.9% INJ 100 ML IV SCH (14:41)
--- NOTE | 2017-06-28 17:07 | MB ---
cc: KRISTA RAMSEY M.D. DATE OF CONSULTATION: 06/27/2017. REASON FOR CONSULTATION: Diverticulitis with colovesical fistula. HISTORY OF PRESENT ILLNESS: Ms. Leach is a very pleasant 81-year-old female who has about a three week history of abdominal discomfort and lower abdominal discomfort which progressed to passing stool and air in her urine. The patient had a urine culture previously, which grew E coli and was started on some antibiotics. Her symptoms continued despite antibiotic treatment and she finally had a CT scan, which showed diverticulosis and probable colovesical fistula. She continues to have some slight confusion but denies any fever. She has been having some shaking chills. She denies any rectal bleeding. No nausea or vomiting. No diarrhea. Her appetite has remained good and she may have lost a few pounds but unclear. She was sent to the emergency room for additional evaluation and workup. PAST MEDICAL HISTORY: 1. History of high blood pressure. 2. Atrial fibrillation. 3. Pulmonary fibrosis. 4. Hyperparathyroidism. 5. Melanoma. PAST SURGICAL HISTORY: 1. Arthroscopic shoulder surgery. 2. Bilateral total knee arthroplasty. 3. History of previous diverticular attacks. Last colonoscopy in 2012. MEDICATIONS: Please see admitting list. ALLERGIES: 1. AMPICILLIN. 2. CIPRO. 3. LEVAQUIN. FAMILY HISTORY: No history of colon or rectal cancer. SOCIAL HISTORY: The patient denies tobacco use. Only occasional rare alcohol intake. PHYSICAL EXAMINATION: GENERAL: A very pleasant older female in no acute distress. HEAD, EYES, EARS, NOSE, THROAT: Remarkable for pink membranes. Nonicteric sclerae. NECK: A little stiff without adenopathy. CHEST: Relatively clear. Symmetrically expanding. HEART: Slightly irregular rhythm. ABDOMEN: Soft and minimally distended and not really tight. No tympany. No rebound or guarding. No masses noted. Slight tenderness to the lower abdomen. EXTREMITIES: No cyanosis or clubbing and minimal trace pedal edema. LABORATORY STUDIES: Laboratory studies were reviewed. CT scan shows inflammatory changes with extensive diverticular disease and probable colovesical fistula. Urine culture is pending. IMPRESSION: An 81-year-old female with previous diverticular disease now with obvious colovesical fistula. She seems fairly stable. She has been started on antibiotics and IV fluid hydration. She is able to tolerate liquids. I would potentially like to wait a little longer prior to bringing her in for definitive surgical resection. The risks, benefits, and alternatives were discussed and if she cannot tolerate a diet or maintain relatively free from overt infection, then she might have to have the surgery moved up sooner with a higher chance of having a temporary colostomy or an ileostomy. We will see how she does over the next 24 to 48 hours. MD LEIF Ware/CLAIRE /4:55 PM /5:02 PM
== END 2017-06-28 16:55 | disposition home or self-care (01) | DRG 699 ==
LOC: NEPC 10:34 → NEDA 14:27 → N07B 16:40
PROVIDERS: ADMIT Hospitalist; ATTEND Hospitalist
DX: N32.1 Vesicointestinal fistula (principal); I50.22 Chronic systolic (congestive) heart failure; J84.10 Pulmonary fibrosis, unspecified; I13.0 Hypertensive heart and chronic kidney disease with heart failure and stage 1 through stage 4 chronic kidney disease, or unspecified chronic kidney disease; I48.0 Paroxysmal atrial fibrillation; N18.3 Chronic kidney disease, stage 3 (moderate); I44.0 Atrioventricular block, first degree; K57.30 Diverticulosis of large intestine without perforation or abscess without bleeding; I34.0 Nonrheumatic mitral (valve) insufficiency; E21.3 Hyperparathyroidism, unspecified; F32.9 Major depressive disorder, single episode, unspecified; Z85.820 Personal history of malignant melanoma of skin; Z88.1 Allergy status to other antibiotic agents; Z96.653 Presence of artificial knee joint, bilateral
CPT/HCPCS: 71010; 80048; 80053; 83605; 85025; 85610; 85730; 87040; 93005; 96360; 96361; J0696; J2405; J7030

== ENCOUNTER → 2017-07-22 | Outpatient (CLI) | payer MEDICARE ==
[~2017-07-22] MED LIST changes: -ASPI-183 PO; +ASPI325T33 PO; +BACT800T5 PO; +FOLI400T PO; +IRON18TA PO; -MACR100C2 PO; +MEGA RED PO; +PHILCAP2 PO; +VITA100018 PO; +VITA500T35 PO
[2017-07-22 09:24] LABS: AUTOMATED NEUTROPHIL # 16.7 TH/MM3 (1.8-7.7); BASOPHIL % 0.1 % (0.0-2.0); HEMATOCRIT 34.1 % (35.0-46.0); HEMO FLAGS DIFF FINAL; LYMPH % 6.6 % (9.0-44.0); LYMPHOCYTE # 1.3 TH/MM3 (1.0-4.8); MEAN CELL VOLUME 91.4 FL (80.0-100.0); MEAN CORPUSCULAR HEMOGLOBIN 30.2 PG (27.0-34.0); NEUT % 86.3 % (16.0-70.0); PLATELET COUNT 482 TH/MM3 (150-450); RED BLOOD COUNT 3.73 MIL/MM3 (4.00-5.30); RED CELL DISTRIBUTION WIDTH 14.6 % (11.6-17.2); WHITE BLOOD COUNT 19.4 TH/MM3 (4.0-11.0)
[2017-07-22 09:33] LABS: INTERNATIONAL NORMALIZED RATIO 1.3 RATIO; PROTHROMBIN TIME - PATIENT 12.8 SEC (9.8-11.6)
[2017-07-22 10:07] LABS: ANION GAP 12 MEQ/L (5-15); AST (GOT) 21 U/L (15-37); BICARBONATE 23.1 MEQ/L (21.0-32.0); BLOOD UREA NITROGEN 68 MG/DL (7-18); CHLORIDE 94 MEQ/L (98-107); GLOMERULAR FILTRATION RATE 24 ML/MIN (>89); GLUCOSE,FASTING 125 MG/DL (74-99); POTASSIUM 4.4 MEQ/L (3.5-5.1); SODIUM (NA) 129 MEQ/L (136-145)
[2017-07-22 10:09] LABS: ALT (GPT) 14 U/L (10-53)
[2017-07-22 10:12] LABS: ALKALINE PHOSPHATASE 66 U/L (45-117); TOTAL BILIRUBIN ADULT 0.4 MG/DL (0.2-1.0)
== END ==
LOC: CPRE 08:43
PROVIDERS: ATTEND Colon & Rectal Surgery
DX: Z01.810 Encounter for preprocedural cardiovascular examination (principal); Z01.811 Encounter for preprocedural respiratory examination; Z01.812 Encounter for preprocedural laboratory examination; Z79.01 Long term (current) use of anticoagulants; N32.1 Vesicointestinal fistula
CPT/HCPCS: 36415; 80053; 85025; 85610; 85730

== ENCOUNTER 2017-07-23 09:59 | Inpatient (IN) | payer MEDICARE ==
[~2017-07-23] VITALS: Ht 162.6 cm; Wt 62.2 kg
[2017-07-23] VITALS (10 sets, daily range): BP systolic 97–123; BP diastolic 51–64; PULSE 97–128; RESP 20–40; TEMP 98.2–98.8; O2SAT 92–96
[~2017-07-23 09:59] MED LIST changes: -MEGA RED PO; -PHILCAP2 PO
[2017-07-23] MEDS ORDERED: SODIUM CHLORID 0.9% 500 ML INJ 500 ML IV ONE (10:15)
[2017-07-23] MEDS ORDERED: ONDANSETRON HCL 4 MG/2 ML VIAL IVP ONE (10:15)
[2017-07-23] MEDS ORDERED: SODIUM CHLORIDE 0.9% FLUSH 10 ML FLUSH IVF PRN (10:15)
--- NOTE | 2017-07-23 10:22 | PD ---
HPI Chief Complaint: Syncope/Near-Syncope Time Seen by Provider: 10:07 Travel History International Travel<30 days: No Contact w/Intl Traveler<30days: No Traveled to known affect area: No History of Present Illness HPI The patient is a 81-year-old female who presents to the emergency department via EMS from home after an apparent syncopal episode in the bathroom. According to EMS, via the patient's 's report, the patient was in the bathroom when she stood up and then had a syncopal episode. EMS states they found the patient on the bathroom floor with emesis. They noted the patient was in atrial fibrillation with a heart rate that varied between the 140s and 150s with a blood pressure in the 80s. Therefore, they administer the patient an IV fluid bolus and then Cardizem 20 mg intravenously which brought the patient's heart rate down into the 80s and 90s. The patient does have previous history of atrial fibrillation according to EMS. Upon arrival the patient was somewhat lethargic and a poor historian. The states that the patient is scheduled to undergo surgery by Dr. Orr for a colovesicular fistula next Friday for recurrent urinary tract infections. The patient denies any chest pain, shortness of breath, does admit to vomiting. She denies any current abdominal pain. However she is a somewhat limited historian secondary to her current clinical condition. PFSH Past Medical History Atrial Fibrillation: Yes Autoimmune Disease: No Anxiety: No Depression: No Heart Rhythm Problems: Yes (Hx of Afib) Cancer: Yes Cardiovascular Problems: Yes High Cholesterol: Yes Chemotherapy: No Diabetes: No Diminished Hearing: No Diverticulitis: Yes Endocrine: No Gastrointestinal Disorders: Yes (DIVERTICULITIS) Genitourinary: Yes (colovesical fistula) Headaches: Yes Hypertension: Yes Immune Disorder: No Implanted Vascular Access Dvce: Yes Musculoskeletal: No Neurologic: No Psychiatric: No Respiratory: No Radiation Therapy: No Thyroid Disease: Yes Triglycerides - High: Yes Past Surgical History Joint Replacement: Yes (KNEES) Other Surgery: Yes (IUD REMOVED "YEARS AGO") Social History Alcohol Use: Yes (RARE) Tobacco Use: No Substance Use: No Allergies-Medications (Allergen,Severity, Reaction): Coded Allergies: ampicillin (Verified Allergy, Severe, 07/23/17) ciprofloxacin (Verified Allergy, Severe, Rash, 07/23/17) levofloxacin (Verified Allergy, Severe, Rash, 07/23/17) Reported Meds & Prescriptions Reported Meds & Active Scripts Active Bactrim DS (Sulfamethoxazole-Trimethoprim) 800-160 Mg Tab 1 Tab PO BID Reported [Franklin Red] 1 Cap PO DAILY Xamarin (Probiotic Product) 1.5 Billion Cell Cap 1 Cap PO DAILY Iron (Ferrous Sulfate) 18 Mg Tab 18 Mg PO DAILY Vitamin D3 (Cholecalciferol) 1,000 Unit Tab 1,000 Units PO DAILY Folic Acid 0.4 Mg Tab 400 Mcg PO DAILY Vitamin B12 (Cyanocobalamin) 500 Mcg Tab 500 Mcg PO DAILY Telmisartan 20 Mg Tab 20 Mg PO DAILY Aspirin EC (Aspirin) 325 Mg Tabdr 325 Mg PO DAILY Review of Systems Except as stated in HPI: all other systems reviewed are Neg General / Constitutional: No: Fever HENT: Positive: Lightheadedness Cardiovascular: Positive: Irregular Rhythm, Tachycardia, Syncope, No: Chest Pain or Discomfort Respiratory: No: Shortness of Breath Gastrointestinal: Positive: Nausea, Vomiting, No: Abdominal Pain Genitourinary: Positive: Other (history of recurrent UTIs) Musculoskeletal: Positive: Weakness Neurologic: Positive: Syncope Physical Exam Narrative GENERAL: Awake, somewhat lethargic 81-year-old female appears her stated age and is in no acute respiratory distress. SKIN: Focused skin assessment warm/dry. HEAD: Atraumatic. Normocephalic. EYES: Pupils equal and round. No injection or drainage. ENT: No nasal bleeding or discharge. Slightly dry mucous membranes with dried emesis on the right side of the mouth. NECK: Trachea midline. No JVD. CARDIOVASCULAR: Irregularly irregular with a heart rate in the 90s. RESPIRATORY: No accessory muscle use. Clear to auscultation. Breath sounds equal bilaterally. GASTROINTESTINAL: Abdomen soft, non-tender, nondistended. No rebound tenderness. Back: No CVA tenderness. MUSCULOSKELETAL: No obvious deformities. No clubbing. No cyanosis. No edema. NEUROLOGICAL: Awake, however, somewhat lethargic. Oriented to person, but not month or year. PSYCHIATRIC: Appropriate mood and affect; insight and judgment normal. Data Data Last Documented VS Vital Signs Date Time Temp Pulse Resp B/P (MAP) Pulse Ox O2 Delivery O2 Flow Rate FiO2 07/23/17 10:47 95 Room Air 07/23/17 10:10 98.2 97 40 Orders Orders Electrocardiogram (07/23/17 10:15) Complete Blood Count With Diff (07/23/17 10:15) Comprehensive Metabolic Panel (07/23/17 10:15) Magnesium (Mg) (07/23/17 10:15) Ckmb (Isoenzyme) Profile (07/23/17 10:15) Troponin I (07/23/17 10:15) Act Partial Throm Time (Ptt) (07/23/17 10:15) Prothrombin Time / Inr (Pt) (07/23/17 10:15) Urinalysis - C+S If Indicated (07/23/17 10:15) Chest, Single Ap (07/23/17 10:15) Ecg Monitoring (07/23/17 10:15) Iv Access Insert/Monitor (07/23/17 10:15) Oximetry (07/23/17 10:15) Ondansetron Inj (Zofran Inj) (07/23/17 10:15) Sodium Chloride 0.9% Flush (Ns Flush) (07/23/17 10:15) Orthostatic Vital Signs (07/23/17 10:15) Sodium Chlorid 0.9% 500 Ml Inj (Ns 500 M (07/23/17 10:15) Lactic Acid (07/23/17 10:15) Blood Culture (07/23/17 10:15) Sodium Chlorid 0.9% 500 Ml Inj (Ns 500 M (07/23/17 10:48) Ceftriaxone Inj (Rocephin Inj) (07/23/17 11:00) Sodium Chlor 0.9% 1000 Ml Inj (Ns 1000 M (07/23/17 11:15) CKMB (07/23/17 10:15) CKMB% (07/23/17 10:15) Sodium Chlor 0.9% 1000 Ml Inj (Ns 1000 M (07/23/17 11:30) Ct Brain W/O Iv Contrast(Rout) (07/23/17 ) Ct Abd/Pel W/O Iv Contrast (07/23/17 ) Admit Order (Ed Use Only) (07/23/17 12:04) Labs Laboratory Tests Test 07/23/17 10:15 White Blood Count 21.5 TH/MM3 Red Blood Count 3.42 MIL/MM3 Hemoglobin 10.3 GM/DL Hematocrit 31.2 % Mean Corpuscular Volume 91.0 FL Mean Corpuscular Hemoglobin 29.9 PG Mean Corpuscular Hemoglobin Concent 32.9 % Red Cell Distribution Width 14.4 % Platelet Count 457 TH/MM3 Mean Platelet Volume 8.8 FL Neutrophils (%) (Auto) 82.9 % Lymphocytes (%) (Auto) 8.4 % Monocytes (%) (Auto) 8.6 % Eosinophils (%) (Auto) 0.0 % Basophils (%) (Auto) 0.1 % Neutrophils # (Auto) 17.8 TH/MM3 Lymphocytes # (Auto) 1.8 TH/MM3 Monocytes # (Auto) 1.9 TH/MM3 Eosinophils # (Auto) 0.0 TH/MM3 Basophils # (Auto) 0.0 TH/MM3 CBC Comment DIFF FINAL Differential Comment Prothrombin Time 14.9 SEC Prothromb Time International Ratio 1.5 RATIO Activated Partial Thromboplast Time 21.4 SEC Blood Urea Nitrogen 108 MG/DL Creatinine 3.89 MG/DL Random Glucose 99 MG/DL Total Protein 7.5 GM/DL Albumin 2.7 GM/DL Calcium Level 10.8 MG/DL Magnesium Level 2.4 MG/DL Alkaline Phosphatase 55 U/L Aspartate Amino Transf (AST/SGOT) 40 U/L Alanine Aminotransferase (ALT/SGPT) 17 U/L Total Bilirubin 0.5 MG/DL Sodium Level 126 MEQ/L Potassium Level 5.5 MEQ/L Chloride Level 89 MEQ/L Carbon Dioxide Level 22.1 MEQ/L Anion Gap 15 MEQ/L Estimat Glomerular Filtration Rate 11 ML/MIN Lactic Acid Level 5.2 mmol/L Total Creatine Kinase 412 U/L Creatine Kinase MB 2.6 NG/ML Creatine Kinase MB % 0.6 % Troponin I 0.04 NG/ML MDM Medical Decision Making Medical Screen Exam Complete: Yes Emergency Medical Condition: Yes Medical Record Reviewed: Yes Interpretation(s) EKG reveals atrial fibrillation/flutter with multifocal PVCs. Second EKG reveals sinus tachycardia with right bundle-branch block morphology and PVC. Laboratory Tests Test 07/23/17 10:15 White Blood Count 21.5 TH/MM3 Red Blood Count 3.42 MIL/MM3 Hemoglobin 10.3 GM/DL Hematocrit 31.2 % Mean Corpuscular Volume 91.0 FL Mean Corpuscular Hemoglobin 29.9 PG Mean Corpuscular Hemoglobin Concent 32.9 % Red Cell Distribution Width 14.4 % Platelet Count 457 TH/MM3 Mean Platelet Volume 8.8 FL Neutrophils (%) (Auto) 82.9 % Lymphocytes (%) (Auto) 8.4 % Monocytes (%) (Auto) 8.6 % Eosinophils (%) (Auto) 0.0 % Basophils (%) (Auto) 0.1 % Neutrophils # (Auto) 17.8 TH/MM3 Lymphocytes # (Auto) 1.8 TH/MM3 Monocytes # (Auto) 1.9 TH/MM3 Eosinophils # (Auto) 0.0 TH/MM3 Basophils # (Auto) 0.0 TH/MM3 CBC Comment DIFF FINAL Differential Comment Prothrombin Time 14.9 SEC Prothromb Time International Ratio 1.5 RATIO Activated Partial Thromboplast Time 21.4 SEC Blood Urea Nitrogen 108 MG/DL Creatinine 3.89 MG/DL Random Glucose 99 MG/DL Total Protein 7.5 GM/DL Albumin 2.7 GM/DL Calcium Level 10.8 MG/DL Magnesium Level 2.4 MG/DL Alkaline Phosphatase 55 U/L Aspartate Amino Transf (AST/SGOT) 40 U/L Alanine Aminotransferase (ALT/SGPT) 17 U/L Total Bilirubin 0.5 MG/DL Sodium Level 126 MEQ/L Potassium Level 5.5 MEQ/L Chloride Level 89 MEQ/L Carbon Dioxide Level 22.1 MEQ/L Anion Gap 15 MEQ/L Estimat Glomerular Filtration Rate 11 ML/MIN Lactic Acid Level 5.2 mmol/L Total Creatine Kinase 412 U/L Creatine Kinase MB 2.6 NG/ML Creatine Kinase MB % 0.6 % Troponin I 0.04 NG/ML Last Impressions Chest X-Ray 07/23/17 1015 Signed Impressions: Service Date/Time: Sunday, July 23, 2017 10:41 - CONCLUSION: Interstitial densities. Mild cardiomegaly. Nakul Finn MD Head CT 07/23/17 0000 Signed Impressions: Service Date/Time: Sunday, July 23, 2017 13:17 - CONCLUSION: 1. Cerebral atrophy and ischemic small vessel vasculopathy. 2. Remote left cerebellar infarct. Nakul Finn MD Abdomen/Pelvis CT 07/23/17 0000 Signed Impressions: Service Date/Time: Sunday, July 23, 2017 13:19 - CONCLUSION: 1. Fluid-filled distention of the stomach and proximal to mid duodenum with transition zone identified in the fourth portion of duodenum. An obstructing process needs to be excluded. 2. Large calcified gallstone. 3. Simple left renal cyst. 4. Chronic fibrotic lung disease. 5. No evidence of acute diverticulitis. Eric Peralta MD Differential Diagnosis Differential diagnosis includes atrial fibrillation with RVR, sepsis, dehydration, electrolyte abnormality, small bowel obstruction, recurrent UTI, colovesicular fistula, symptomatic anemia. Narrative Course IV was established, labs are drawn and sent, and the patient was placed on cardiac telemetry monitoring and continuous pulse oximetry monitoring. EKG was ordered and interpreted. Chest x-rays obtained. Blood culture and lactic gas were sent to lab. The patient was administered 500 cc of normal saline. Chest x-ray was noted. The patient did have a change her rhythm from A. fib to sinus tachycardia with right bundle-branch block morphology. The patient's systolic blood pressure fell to the 80s, therefore, 2 boluses of normal saline were ordered. Patient's creatinine was 3.89, yesterday was 2.12 on outpatient basis. The patient's white count yesterday was 19, elevated at 21.5. Patient' s lactic acid was greater than 5. The patient appears to have sepsis with acute renal failure and elevated lactic acid. The patient does have a history of recurrent urinary tract infections, may be urosepsis. Therefore, the patient was administered Rocephin 1 g intravenously as previous cultures revealed and sensitivity with Escherichia coli. The patient will be admitted to the intensive care unit. I had a discussion with the advisory software engineer to request a CT of the brain and CT of the abdomen and pelvis. Therefore, the CTs were ordered. Critical Care Narrative Aggregate critical care time was 40 minutes. Time to perform other separately billable procedures was not included in the critical care time. My time did not include minutes spent treating any other patients simultaneously or on activities that did not directly contribute to the patient's treatment. The services I provided to this patient were to treat and/or prevent clinically significant deterioration that could result in: Anoxia, hypoxia, aspiration, septic shock, . I provided critical care services requiring my management, as noted below: Chart data review, documentation time, medication orders and management, vital sign assessments/reviewing monitor data, ordering and reviewing lab tests, ordering and interpreting/reviewing x-rays and diagnostic studies, care of the patient and discussion of the patient with the admitting physicians. Sepsis Criteria SIRS Criteria (2 or more): Heart rate over 90, WBC > 70920, < 4000 or > 10% bands Septic Shock Criteria: Lactic acid >=4 Criteria Outcome: Meets septic shock criteria Physician Communication Physician Communication The on-call advisory software engineer was paged for admission. I discussed the patient with Dr. Chapin who agrees with admission. Diagnosis Primary Impression: Septic shock Additional Impressions: Acute renal failure Qualified Codes: N17.9 - Acute kidney failure, unspecified Atrial fibrillation with RVR Admitting Information Admitting Physician Requests: Admit Condition: Serious Kevin Campbell MD Jul 23, 2017 10:22
[2017-07-23] MEDS ORDERED: SODIUM CHLORID 0.9% 500 ML INJ 500 ML ONE (10:48)
[2017-07-23 10:50] LABS: AUTOMATED NEUTROPHIL # 17.8 TH/MM3 (1.8-7.7); BASOPHIL % 0.1 % (0.0-2.0); HEMATOCRIT 31.2 % (35.0-46.0); HEMO FLAGS DIFF FINAL; LYMPH % 8.4 % (9.0-44.0); LYMPHOCYTE # 1.8 TH/MM3 (1.0-4.8); MEAN CORPUSCULAR HEMOGLOBIN 29.9 PG (27.0-34.0); MEAN CORPUSCULAR HGB CONC 32.9 % (32.0-36.0); MONO % 8.6 % (0.0-8.0); NEUT % 82.9 % (16.0-70.0); PLATELET COUNT 457 TH/MM3 (150-450); RED BLOOD COUNT 3.42 MIL/MM3 (4.00-5.30); RED CELL DISTRIBUTION WIDTH 14.4 % (11.6-17.2); WHITE BLOOD COUNT 21.5 TH/MM3 (4.0-11.0)
[2017-07-23] MEDS ORDERED: cefTRIAXone INJ 1,000 MG in SODIUM CHLORIDE 0.9% INJ 100 ML IV ONE (11:00)
[2017-07-23 11:05] LABS: APTT (PATIENT) 21.4 SEC (24.3-30.1); INTERNATIONAL NORMALIZED RATIO 1.5 RATIO; PROTHROMBIN TIME - PATIENT 14.9 SEC (9.8-11.6)
--- NOTE | 2017-07-23 11:07 | RADRPT ---
EXAM DATE/TIME: 07/23/2017 10:41 [facility] COMPARISON: CHEST SINGLE AP, June 27, 2017, 11:28. INDICATIONS : Shortness of breath. MEDICAL HISTORY : None. SURGICAL HISTORY : None. ENCOUNTER: Initial ACUITY: 1 day PAIN SCORE: Non-responsive. LOCATION: Bilateral chest FINDINGS: A single view of the chest demonstrates interstitial densities without evidence of mass, infiltrate o r effusion. The cardiomediastinal contours are unremarkable. Mild cardiomegaly. Osseous structures are intact. CONCLUSION: Interstitial densities. Mild cardiomegaly. Nakul Finn MD on July 23, 2017 at 11:04 Board Certified Radiologist. This report was verified electronically.
[2017-07-23 11:14] LABS: ALKALINE PHOSPHATASE 55 U/L (45-117); ALT (GPT) 17 U/L (10-53); ANION GAP 15 MEQ/L (5-15); AST (GOT) 40 U/L (15-37); BICARBONATE 22.1 MEQ/L (21.0-32.0); BLOOD UREA NITROGEN 108 MG/DL (7-18); CHLORIDE 89 MEQ/L (98-107); CREATINE KINASE 412 U/L (26-192); GLOMERULAR FILTRATION RATE 11 ML/MIN (>89); MAGNESIUM 2.4 MG/DL (1.5-2.5); SODIUM (NA) 126 MEQ/L (136-145); TOTAL BILIRUBIN ADULT 0.5 MG/DL (0.2-1.0)
[2017-07-23] MEDS ORDERED: SODIUM CHLOR 0.9% 1000 ML INJ 1,000 ML IV ONE ×2 (11:15→11:30)
[2017-07-23 11:16] LABS: POTASSIUM 5.5 MEQ/L (3.5-5.1)
[2017-07-23] MEDS ORDERED: PHILCAP2 PO (11:24)
[2017-07-23] MEDS ORDERED: MEGA RED PO (11:24)
[2017-07-23 11:30] LABS: CKMB 2.6 NG/ML (0.5-3.6)
--- NOTE | 2017-07-23 13:40 | RADRPT ---
EXAM DATE/TIME: 07/23/2017 13:17 [facility] COMPARISON: No previous studies available for comparison. INDICATIONS : Lost consciousness while on toilet with vomiting. RADIATION DOSE: 56.35 CTDIvol (mGy) MEDICAL HISTORY : Cardiovascular disease. Hypertension. Diverticulitis.skin ca SURGICAL HISTORY : None. ENCOUNTER: Initial ACUITY: 1 day PAIN SCALE: 0/10 LOCATION: Bilateral cranial TECHNIQUE: Multiple contiguous axial images were obtained of the head. Using automated exposure control and adj ustment of the mA and/or kV according to patient size, radiation dose was kept as low as reasonably a chievable to obtain optimal diagnostic quality images. DICOM format image data is available electro nically for review and comparison. FINDINGS: CEREBRUM: Scattered areas of low-attenuation throughout the white matter. Cerebral atrophy. The ventricles are normal for age. No evidence of midline shift, mass lesion, hemorrhage or acute infarction. No extra -axial fluid collections are seen. POSTERIOR FOSSA: Small old left cerebellar infarct. Brainstem is intact. The 4th ventricle is midline. The cerebello pontine angle is unremarkable. EXTRACRANIAL: The visualized portion of the orbits is intact. SKULL: The calvaria is intact. No evidence of skull fracture. CONCLUSION: 1. Cerebral atrophy and ischemic small vessel vasculopathy. 2. Remote left cerebellar infarct. Nakul Finn MD on July 23, 2017 at 13:36 Board Certified Radiologist. This report was verified electronically.
[2017-07-23] MEDS ORDERED: MISCELLANEOUS NURSING INFORMATION XX SCH (13:45)
[2017-07-23] MEDS ORDERED: CHLORHEXIDINE GLUCONATE 2 % 1 PACK (2 CLOTHS) TOP PRN (13:45)
[2017-07-23] MEDS ORDERED: RESP: ALBUTEROL 2.5 MG/IPRATROPIUM 0.5 MG NEB (PRN) INH (13:45)
--- NOTE | 2017-07-23 13:53 | RADRPT ---
EXAM DATE/TIME: 07/23/2017 13:19 [facility] COMPARISON: No previous studies available for comparison. INDICATIONS : Lost conciousness while on toilet with vomiting. ORAL CONTRAST: No oral contrast ingested. RADIATION DOSE: 6.88 CTDIvol (mGy) MEDICAL HISTORY : Cardiovascular disease. Hypertension. Diverticulitis. SURGICAL HISTORY : None. ENCOUNTER: Initial ACUITY: 1 day PAIN SCALE: 3/10 LOCATION: Bilateral Umbilical TECHNIQUE: Volumetric scanning of the abdomen and pelvis was performed. Using automated exposure control and ad justment of the mA and/or kV according to patient size, radiation dose was kept as low as reasonably achievable to obtain optimal diagnostic quality images. DICOM format image data is available electro nically for review and comparison. FINDINGS: LOWER LUNGS: Chronic airway disease, pulmonary fibrosis and cardiomegaly are noted within the lower thorax. LIVER: Homogeneous density without lesion. There is no dilation of the biliary tree. A large calcified gall stone measuring 2.1 cm is noted. SPLEEN: Normal size without lesion. PANCREAS: Within normal limits. KIDNEYS: The right kidney is small and appears atrophic. The left kidney contains a 4.5 cm cyst off its upper pole. There is noticeable hydronephrosis, nephrolithiasis or suspicious renal lesions. ADRENAL GLANDS: Within normal limits. VASCULAR: There is no aortic aneurysm. BOWEL/MESENTERY: The stomach and duodenum are distended and fluid-filled. A transition is identified in the fourth por tion of the duodenum. Stool and gas is noted throughout the colon. High density material is identifie d in the colon and rectum. Small intestinal tract is otherwise unremarkable. ABDOMINAL WALL: Within normal limits. RETROPERITONEUM: There is no lymphadenopathy. BLADDER: No wall thickening or mass. REPRODUCTIVE: Within normal limits. INGUINAL: There is no lymphadenopathy or hernia. MUSCULOSKELETAL: Advanced facet arthropathy is seen in the lower lumbar spine. CONCLUSION: 1. Fluid-filled distention of the stomach and proximal to mid duodenum with transition zone identifie d in the fourth portion of duodenum. An obstructing process needs to be excluded. 2. Large calcified gallstone. 3. Simple left renal cyst. 4. Chronic fibrotic lung disease. 5. No evidence of acute diverticulitis. Eric Peralta MD on July 23, 2017 at 13:42 Board Certified Radiologist. This report was verified electronically.
[2017-07-23] MEDS ORDERED: DEXTROSE 50% IN WATER 50 ML VIAL(D50) IV PUSH PRN (14:00)
[2017-07-23] MEDS ORDERED: GLUCAGON 1 MG/ML VIAL OTHER PRN (14:00)
--- NOTE | 2017-07-23 14:43 | EKG ---
Date Performed: 07/23/2017 Time Performed: 11:26:38 PTAGE: 81 years EKG: SINUS TACHYCARDIA WITH FIRST DEGREE AV BLOCK WITH FREQUENT VENTRICULAR PREMATURE COMPLEXES RIGHT BUNDLE BRANCH BLOCK ANTERIOR MYOCARDIAL INFARCTION INFERIOR MYOCARDIAL INFARCTION PREVIOUS TRACING : 06/27/2017 11.39 DOCTOR: Jean Claude Wallis Interpretating Date/Time 07/23/2017 14:42:15
--- NOTE | 2017-07-23 14:48 | EKG ---
Date Performed: 07/23/2017 Time Performed: 10:10:27 PTAGE: 81 years EKG: ATRIAL FIBRILLATION WITH ABERRANT CONDUCTION OR VENTRICULAR PREMATURE COMPLEXES MARKED LEFT AXIS DEVIATION LOW QRS VOLTAGE IN PRECORDIAL LEADS ABNORMAL ECG NO PREVIOUS TRACING DOCTOR: Jean Claude Wallis Interpretating Date/Time 07/23/2017 14:47:09
--- NOTE | 2017-07-23 14:53 | MH ---
cc: JENNA ASHFORD DATE OF ADMISSION: 07/23/2017 1936 HISTORY OF PRESENT ILLNESS The patient is a 81-year-old female with past medical history of hypertension, melanoma, atrial fibrillation, who was scheduled to undergo surgery by Dr. Orr for colovesical fistula next Friday for recurrent urinary tract infections. She presented to [facility] ED via EMS after a syncopal episode in the bathroom. According to the report when she stood up she had a syncopal episode and EMS found the patient on the bathroom floor with emesis. She was in atrial fibrillation with RVR at a rate of 140s to 150s and systolic blood pressure in the 80s. She was given IV fluids and Cardizem. Most of the history was obtained from reviewing the medical records as she is lethargic and poor historian. Her initial blood pressure in the ED was 123/63 and her laboratory data was significant for leukocytosis with a WBC of 21.5 and acute renal failure with a BUN of 108, creatinine 3.89 and elevated lactic acid level at 5.2. Chest x-ray in the ED showed interstitial densities and mild cardiomegaly. In the ED she was given 1.5 liters of crystalloids and is currently receiving an additional 1 liter bolus. In addition she was given Rocephin and Zofran. She denies any abdominal pain, nausea, vomiting, chest pain, shortness of breath, cough or any constitutional symptoms. PAST MEDICAL HISTORY Significant for: 1. Hypertension. 2. Atrial fibrillation. 3. Hyperparathyroidism. 4. Melanoma. PAST SURGICAL HISTORY 1. Bilateral total knee arthroplasty. 2. Arthroscopic shoulder surgery. 3. Colonoscopy in 2012. FAMILY HISTORY No history of colon or rectal cancer. SOCIAL HISTORY Nonsmoker, occasional drinker. ALLERGIES AMPICILLIN, CIPRO AND LEVAQUIN. MEDICATIONS Reported medications include: 1. Aspirin. 2. Bactrim. 3. Vitamin B12. 4. Folic acid. 5. Vitamin D3. REVIEW OF SYSTEMS As per HPI. The rest of the review of systems is limited as the patient is a poor historian. PHYSICAL EXAMINATION GENERAL: A 81-year-old female lying in bed, in no acute respiratory distress, somewhat lethargic. VITAL SIGNS: Temperature 98.2, pulse of 105, blood pressure 100/60, saturation 93% on 2 liters oxygen. HEENT: Atraumatic, normocephalic. Pupils equal, round and reactive to light and accommodation. Extraocular muscles intact. Conjunctivae pink. Nonicteric sclerae. Oral mucosa within normal. Dry mucous membranes noted. NECK: Supple. No JVD, adenopathy or thyromegaly. Trachea midline. CARDIOVASCULAR: Tachycardic, normal S1-S2. No murmurs, rubs or gallops noted. PULMONARY: Bilateral equal air entry. ABDOMEN: Soft, nontender. No distension. Positive bowel sounds. EXTREMITIES: No cyanosis, clubbing or edema. NEURO: No focal sensory deficit. Lethargic. LABORATORY DATA Sodium 126, potassium 5.5, chloride 89, CO2 22, BUN 108, creatinine 3.89, glucose 99, lactic acid 5.2, calcium 10.8, magnesium 2.4, total bilirubin 0.5, AST 40, ALT 17, alk phos 55, total CK 412, troponin 0.04, WBC 21.5, hemoglobin 10.3, hematocrit 31, platelet count of 457, INR 1.5, PT 14.9, PTT 21.4. RADIOGRAPHIC STUDIES Chest x-ray showed interstitial densities. CT scan of the brain showed cerebral atrophy and ischemic small vessel vasculopathy, remote left cerebellar infarct. EKG Showed atrial fibrillation/flutter with multifocal PVCs. Second EKG shows sinus tachycardia with PVCs. IMPRESSION 1. Respiratory insufficiency. 2. Severe sepsis. 3. Acute renal failure. 4. Lactic acidemia. 5. Hyponatremia and hyperkalemia. 6. Leukocytosis. 7. Atrial fibrillation with RVR. 8. Anemia. 9. Colovesical fistula. 10. History of hypertension. 11. History of melanoma. 12. History of hyperparathyroidism. RECOMMENDATIONS 1. Monitor neuro status closely and avoid any sedatives. A CT scan of the brain in the ED showed cerebral atrophy and small-vessel ischemic vasculopathy, remote left cerebellar infarct. 2. Continue with oxygen and maintain sats above 92%. 3. Bronchodilators in the form of DuoNeb q. 6 plus q. 2 p.r.n. for shortness of breath. 4. Monitor heart rate and blood pressure closely and maintain MAP greater than 65 mmHg. Serial lactic acid monitoring until cleared. The patient was given 1.5 liters of crystalloid in the ED and is currently receiving additional 1 liter bolus. Will continue with maintenance fluids D5 NS at 100 mL an hour. 5. Will obtain a 2-D echo to evaluate LV function. 6. Monitor renal function, Is and Os and avoid nephrotoxins. 7. Continue with IV hydration as stated above. Repeat BMP. 8. Follow up on CT abdomen and pelvis without contrast. 9. Will consult colorectal surgery, patient was scheduled to undergo surgery for her colovesical fistula by Dr. Orr. 10. Keep n.p.o. for now and place on Pepcid 10 mg IV q. 12 for GI prophylaxis. 11. Continue with broad-spectrum antibiotics in the form of Aztreonam and monitor for signs of infections which include fever and WBC. Follow up on blood cultures. In addition we will check urinalysis with culture if indicated and obtain sputum culture. 12. Will consult infectious disease service. 13. Monitor CBC and coags. 14. Sliding scale insulin if needed for glycemic control. 15. GI prophylaxis with Prevacid 10 mg q. 12 and DVT prophylaxis with SCDs and heparin subcu. 16. Further recommendations will be based on hospital course. MD ANDREWS Alvares/ARTURO /1:49 PM /2:18 PM LUIS FERNANDO
[2017-07-23] MEDS: DEXT 5%-NACL 0.9% 1000 ML INJ 1,000 ML IV SCH ×2 (15:05→23:09)
[2017-07-23 15:12] LABS: AUTOMATED NEUTROPHIL # 19.8 TH/MM3 (1.8-7.7); BASOPHIL % 0.1 % (0.0-2.0); HEMATOCRIT 31.5 % (35.0-46.0); HEMO FLAGS DIFF FINAL; LYMPH % 7.4 % (9.0-44.0); LYMPHOCYTE # 1.7 TH/MM3 (1.0-4.8); MEAN CELL VOLUME 92.1 FL (80.0-100.0); MEAN CORPUSCULAR HEMOGLOBIN 29.8 PG (27.0-34.0); MEAN CORPUSCULAR HGB CONC 32.4 % (32.0-36.0); MONO % 7.4 % (0.0-8.0); NEUT % 85.1 % (16.0-70.0); PLATELET COUNT 410 TH/MM3 (150-450); RED BLOOD COUNT 3.42 MIL/MM3 (4.00-5.30); RED CELL DISTRIBUTION WIDTH 14.9 % (11.6-17.2); WHITE BLOOD COUNT 23.2 TH/MM3 (4.0-11.0)
[2017-07-23] MEDS: RESP: ALBUTEROL 2.5 MG/IPRATROPIUM 0.5 MG NEB (SCH) INH ×2 (15:28→20:59)
[2017-07-23] MEDS: FAMOTIDINE 20 MG/2 ML VIAL IV PUSH SCH ×2 (15:32→22:40)
[2017-07-23 15:45] LABS: BICARBONATE 21.9 MEQ/L (21.0-32.0); POTASSIUM 4.6 MEQ/L (3.5-5.1)
--- NOTE | 2017-07-23 17:28 | PD.CONS ---
History of Present Illness Service Infectious disease Consult Requested By Dr Grimes Reason for Consult Evaluate patient with sepsis, known colovesical fistula Primary Care Physician Ede Singh MD, PhD Diagnoses: History of Present Illness Patient seen and examined. Records reviewed. Patient is an 81-year-old female, with known history of colovesical fistula, has had problem with recurrent UTI, scheduled to have surgery July 29, admitted to the hospital after a syncopal episode. She apparently had a syncopal episode about 2 days prior to admission. On the day of admission she had another episode and she was in the bathroom. She has had very poor by mouth intake the last several days. She apparently hasn't had a bowel movement , and when she `urinates, she passes stool and air. She's had some burning. There's been no fever or chills. EMS was called when she had the syncopal episode, and she was in nature fibrillation with RVR and systolic pressure of 80s. She was given fluid resuscitation, and have blood pressure improved. Patient currently has NG tube in place, and she has maroon fluid coming out of her NG tube. She also has a Ash catheter in place and the output looks like it's maroon color thick fluid. He has some mild abdominal pain. On admission her white count was elevated. Her creatinine was also elevated. She had a preop blood work and her creatinine was elevated at that time. Last June her creatinine was normal. She also had an elevated lactic acid on admission. She was admitted with possible sepsis. CT of the abdomen and pelvis did not show any abnormality. Infectious disease consultation has been requested to evaluate the patient with sepsis, and known history of colovesical fistula. Review of Systems Constitutional: COMPLAINS OF: Change in appetite, DENIES: Fever, Chills, Night Sweats Eyes: DENIES: Eye pain Ears, nose, mouth, throat: DENIES: Nasal discharge, Oral lesions, Throat pain, Ear Pain, Sinus Pain Respiratory: DENIES: Cough, Sputum production, Shortness of breath Cardiovascular: COMPLAINS OF: Syncope, DENIES: Chest pain, Lower Extremity Edema Gastrointestinal: COMPLAINS OF: Abdominal pain, Constipation, DENIES: Nausea, Vomiting, Difficulty Swallowing Genitourinary: COMPLAINS OF: Dysuria Musculoskeletal: DENIES: Joint pain, Joint Swelling Integumentary: DENIES: Rash Neurologic: DENIES: Headache, Localized weakness Psychiatric: DENIES: Hallucinations Past Family Social History Allergies: Coded Allergies: ampicillin (Verified Allergy, Severe, 07/23/17) ciprofloxacin (Verified Allergy, Severe, Rash, 07/23/17) levofloxacin (Verified Allergy, Severe, Rash, 07/23/17) Past Medical History Hypertension Atrial fibrillation CHF EF 25-30% echo 04/26 Pulmonary fibrosis Pulmonary nodules Hyperparathyroidism Depression CKD Diverticulosis Recurrent UTI Known colovesical fistula Past Surgical History Melanoma, removal Shoulder arthropscopic surgery Bilateral TKA Diverticulosis/itis Colonoscopy 2013: pandiverticulosis severe. Reported Medications I attest that I obtained, updated or reviewed the home and current medications. Reported Meds & Active Scripts Active Bactrim DS (Sulfamethoxazole-Trimethoprim) 800-160 Mg Tab 1 Tab PO BID Reported [[place] Red] 1 Cap PO DAILY NileGuide (Probiotic Product) 1.5 Billion Cell Cap 1 Cap PO DAILY Iron (Ferrous Sulfate) 18 Mg Tab 18 Mg PO DAILY Vitamin D3 (Cholecalciferol) 1,000 Unit Tab 1,000 Units PO DAILY Folic Acid 0.4 Mg Tab 400 Mcg PO DAILY Vitamin B12 (Cyanocobalamin) 500 Mcg Tab 500 Mcg PO DAILY Telmisartan 20 Mg Tab 20 Mg PO DAILY Aspirin EC (Aspirin) 325 Mg Tabdr 325 Mg PO DAILY Active Ordered Medications Current Medications Medications (Trade) Dose Ordered Sig/April Route Start Time Stop Time Status Last Admin (NS Flush) 2 ml UNSCH PRN IVF 07/23/17 10:15 (Pepcid Inj) 10 mg Q12HR IV PUSH 07/23/17 13:45 07/23/17 15:32 (Duoneb Neb) 1 ampule Q6HR NEB INH 07/23/17 16:00 07/23/17 15:28 (Duoneb Neb) 1 ampule Q2HR NEB PRN INH 07/23/17 13:45 Miscellaneous Information 1 Q361D XX 07/23/17 13:45 (Chlorhexidine 2% Cloth) 3 pack Taper DAILY@04 TOP 07/24/17 04:00 07/20/18 03:59 (Chlorhexidine 2% Cloth) 3 pack UNSCH PRN TOP 07/23/17 13:45 Dextrose/Sodium Chloride 1,000 ml @ 100 mls/hr Q10H IV 07/23/17 13:45 07/23/17 15:05 Aztreonam 1000 mg/ Sodium Chloride 100 ml @ 200 mls/hr Q6H IV 07/23/17 15:00 (D50w (Vial) Inj) 50 ml UNSCH PRN IV PUSH 07/23/17 14:00 (Glucagon Inj) 1 mg UNSCH PRN OTHER 07/23/17 14:00 (NovoLIN R SUPPLEMENTAL SCALE) 1 Q4H SQ 07/23/17 15:00 Family History Noncontributory Social History No smoking Occ ETOH No illicit drugs Physical Exam Vital Signs Vital Signs Date Time Temp Pulse Resp B/P (MAP) Pulse Ox O2 Delivery O2 Flow Rate FiO2 07/23/17 16:20 07/23/17 15:28 92 Nasal Cannula 4.00 07/23/17 15:00 118 112/52 (72) 07/23/17 13:00 102 100/60 (73) 07/23/17 12:20 101 24 97/63 (74) 94 Nasal Cannula 2.00 07/23/17 10:47 95 Room Air 07/23/17 10:10 98.2 97 40 123/63 (83) 93 Room Air Physical Exam GENERAL: Patient is a well-nourished, well-developed female, awake and alert , not in respiratory distress. SKin looks pale and sallow SKIN: Cool and dry. No generalized rash, no ecchymoses and no evidence of embolic lesions. HEAD: Atraumatic. Normocephalic. No temporal wasting, or tenderness. EYES: [place] conjunctiva. No petechia or hemorrhage. Pupils equal, round and reactive to light. Extraocular movements full and intact. No scleral icterus. No injection or drainage. EARS, NOSE AND THROAT: Nose without bleeding or purulent nasal discharge. No sinus tenderness. Mucous membranes pink and moist. No oral lesions noted. No exudate. No oral thrush. Has NGT in place, output is maroon color fluid NECK: Trachea midline. Supple and not tender, no meningeal signs CARDIOVASCULAR: Regular rate and rhythm. No murmurs, rubs or gallops heard RESPIRATORY: Clear to auscultation. Breath sounds equal bilaterally. No rales , wheezing or rhonchi ABDOMEN: Soft, nondistended, tender on R side, no guarding or rebound. Bowel sounds present and normoactive. No organomegaly. EXTREMITIES: No clubbing, cyanosis, or edema. No joint effusion, has good ROM. No calf tenderness. Cool NEUROLOGICAL: Awake and alert. Cranial nerves grossly intact. Motor grossly within normal limits. PSYCHIATRIC: Normal affect, calm and cooperative. LINE: No evidence of infection : Ash in place, output is maroon fluid Laboratory Laboratory Tests Test 07/23/17 10:15 07/23/17 14:24 White Blood Count 21.5 23.2 Red Blood Count 3.42 3.42 Hemoglobin 10.3 10.2 Hematocrit 31.2 31.5 Mean Corpuscular Volume 91.0 92.1 Mean Corpuscular Hemoglobin 29.9 29.8 Mean Corpuscular Hemoglobin Concent 32.9 32.4 Red Cell Distribution Width 14.4 14.9 Platelet Count 457 410 Mean Platelet Volume 8.8 8.5 Neutrophils (%) (Auto) 82.9 85.1 Lymphocytes (%) (Auto) 8.4 7.4 Monocytes (%) (Auto) 8.6 7.4 Eosinophils (%) (Auto) 0.0 0.0 Basophils (%) (Auto) 0.1 0.1 Neutrophils # (Auto) 17.8 19.8 Lymphocytes # (Auto) 1.8 1.7 Monocytes # (Auto) 1.9 1.7 Eosinophils # (Auto) 0.0 0.0 Basophils # (Auto) 0.0 0.0 CBC Comment DIFF FINAL DIFF FINAL Differential Comment Prothrombin Time 14.9 Prothromb Time International Ratio 1.5 Activated Partial Thromboplast Time 21.4 Blood Urea Nitrogen 108 92 Creatinine 3.89 2.91 Random Glucose 99 96 Total Protein 7.5 Albumin 2.7 Calcium Level 10.8 9.4 Magnesium Level 2.4 Alkaline Phosphatase 55 Aspartate Amino Transf (AST/SGOT) 40 Alanine Aminotransferase (ALT/SGPT) 17 Total Bilirubin 0.5 Sodium Level 126 134 Potassium Level 5.5 4.6 Chloride Level 89 102 Carbon Dioxide Level 22.1 21.9 Anion Gap 15 10 Estimat Glomerular Filtration Rate 11 16 Lactic Acid Level 5.2 1.2 Total Creatine Kinase 412 Creatine Kinase MB 2.6 Creatine Kinase MB % 0.6 Troponin I 0.04 Date/Time Source Procedure Growth Status 07/23/17 10:15 Blood Peripheral Aerobic Blood Culture Pending Received 07/23/17 10:15 Blood Peripheral Anaerobic Blood Culture Pending Received Result Diagram: 07/23/17 1424 07/23/17 1424 Imaging RADIOLOGY STUDIES/FILMS REVIEWED Chest X-Ray 07/23/17 1015 Signed Impressions: Service Date/Time: Sunday, July 23, 2017 10:41 - CONCLUSION: Interstitial densities. Mild cardiomegaly. Nakul Finn MD Head CT 07/23/17 0000 Signed Impressions: Service Date/Time: Sunday, July 23, 2017 13:17 - CONCLUSION: 1. Cerebral atrophy and ischemic small vessel vasculopathy. 2. Remote left cerebellar infarct. Nakul Finn MD Abdomen/Pelvis CT 07/23/17 0000 Signed Impressions: Service Date/Time: Sunday, July 23, 2017 13:19 - CONCLUSION: 1. Fluid-filled distention of the stomach and proximal to mid duodenum with transition zone identified in the fourth portion of duodenum. An obstructing process needs to be excluded. 2. Large calcified gallstone. 3. Simple left renal cyst. 4. Chronic fibrotic lung disease. 5. No evidence of acute diverticulitis. Eric Peralta MD Assessment and Plan Assessment and Plan IMPRESSION Syncope, etiology, had hypotension - has had poor po intake, and also has GIB - likely due to volume loss GIB, ?upper, ?lower, has been taking ALeve PM for a while, also with known pandiverticulosis Known colovesical fistula and Hx recurrent UTI Allergy to PCN, has tolerated cephalosporins in the past Renal insufficiency, likely due to hypotension, prerenal, ?NSAID additional factor RECOMMENDATION Follow C/S Consider GI consult IV Cefepime Stop Azactam CRS has clint consulted - patient known to their service, and surgery planned for Friday Monitor progress I will follow along with you Thank you for this consultation Discussed Condition With D/W RN Spoke with Imelda Johnson MD Jul 23, 2017 17:28
[2017-07-23] MEDS: AZTREONAM INJ 1,000 MG in SODIUM CHLORIDE 0.9% INJ 100 ML IV SCH ×2 (17:34→22:39)
[2017-07-23] MEDS: INSULIN NovoLIN REGULAR SUPPLEMENTAL SCALE SQ SCH ×2 (19:00→23:00)
[2017-07-23 23:16] LABS: BICARBONATE 18.4 MEQ/L (21.0-32.0); MAGNESIUM 1.9 MG/DL (1.5-2.5); POTASSIUM 3.8 MEQ/L (3.5-5.1)
--- NOTE | 2017-07-23 23:27 | HHI.PR ---
Subjective Remarks C/R Surg Pt known from prev adm - colo-vesical fistula She has been very stable - outpt adm for surgery sched for next week C/o several days decr appet, little PO - found her weak, and passed out at home no c/o of abd pain, only decr UO, constant BM Objective - Vital Signs Date Time Temp Pulse Resp B/P (MAP) Pulse Ox O2 Delivery O2 Flow Rate FiO2 07/23/17 18:00 117 07/23/17 16:45 98.2 20 107/64 (78) 95 07/23/17 16:45 Nasal Cannula 2.00 Result Diagram: 07/23/17 1424 07/23/17 5699 Objective Remarks PE alert Abd - soft, min tympany, urine full stool non-tender A/P Assessment and Plan Imp: colo-vesical fistula -reviewed with pt vigorus fluid resuscitation IV ab's montiel drainage, irrigations of bladder pt may only be strong enough for diverting colostomy at this time Carlo Orr MD Jul 23, 2017 23:27
[2017-07-23] MEDS ORDERED: LIDOCAINE HCL 1% 50 ML VIAL ONE (23:47)
[2017-07-24] VITALS (12 sets, daily range): BP systolic 81–115; BP diastolic 48–77; PULSE 89–127; RESP 15–49; TEMP 96.4–99.5; O2SAT 94–100
--- NOTE | 2017-07-24 00:54 | RADRPT ---
EXAM DATE/TIME: 07/24/2017 00:35 [facility] COMPARISON: CHEST SINGLE AP, July 23, 2017, 10:41. INDICATIONS : Right subclavian central line placement. MEDICAL HISTORY : None. SURGICAL HISTORY : None. ENCOUNTER: Subsequent ACUITY: 2 days PAIN SCORE: Non-responsive. LOCATION: Right chest FINDINGS: Interval placement of right central line with tip rejected and radiation. A gastric tube is also bee n placed with the tip and side port projects within the stomach. Interval development of diffuse int erstitial opacities in the mid and lower lungs without consolidation. The heart is upper limits norm al size for AP portable technique. Both hemidiaphragms are well delineated. CONCLUSION: 1. Right central line tip in the right atrium. No pneumothorax seen on this semierect film. 2. Interval development of diffuse interstitial infiltrates throughout both lungs. Valente Longoria MD on July 24, 2017 at 0:51 Board Certified Radiologist. This report was verified electronically.
--- NOTE | 2017-07-24 00:57 | PD.PROCEDR ---
Procedure Note Procedure Centerline placement A time-out was completed verifying correct patient, procedure, site, positioning , and special equipment if applicable. The patient was placed in a dependent position appropriate for central line placement based on the vein to be cannulated. The patients right neck was prepped and draped in sterile fashion. 1% Lidocaine was used to anesthetize the surrounding skin area. A triple lumen 9 -[place] Cordis catheter was introduced into the the internal jugular vein using the Seldinger technique and under ultrasound guidance. The catheter was threaded smoothly over the guide wire and appropriate blood return was obtained. Each lumen of the catheter was evacuated of air and flushed with sterile saline. The catheter was then sutured in place to the skin and a sterile dressing applied. Perfusion to the extremity distal to the point of catheter insertion was checked and found to be adequate. Estimated Blood Loss: 1ml The patient tolerated the procedure well and there were no complications. Surya King MD Jul 24, 2017 00:57
[2017-07-24] MEDS ORDERED: PHENYLEPHRINE 40 MG in D5W 500 ML IV PRN (02:00)
[2017-07-24] MEDS ORDERED: TERBUTALINE INJ 1 MG/ML AMP SQ PRN (02:00)
[2017-07-24] MEDS: SODIUM CHLOR 0.9% 1000 ML INJ 1,000 ML IV SCH ×2 (02:31→03:42)
[2017-07-24] MEDS: AZTREONAM INJ 1,000 MG in SODIUM CHLORIDE 0.9% INJ 100 ML IV SCH ×2 (02:31→10:02)
[2017-07-24] MEDS: INSULIN NovoLIN REGULAR SUPPLEMENTAL SCALE SQ SCH ×6 (03:00→23:00)
[2017-07-24 03:01] LABS: HEMATOCRIT 21.4 % (35.0-46.0)
[2017-07-24 03:02] LABS: REVIEW FLAG FINAL
[2017-07-24] MEDS: RESP: ALBUTEROL 2.5 MG/IPRATROPIUM 0.5 MG NEB (SCH) INH ×4 (03:39→20:22)
[2017-07-24] MEDS: CHLORHEXIDINE GLUCONATE 2 % 1 PACK (2 CLOTHS) TOP SCH (04:00)
[2017-07-24] MEDS: LOSARTAN 25 MG TAB PO SCH (09:00)
[2017-07-24 09:08] LABS: AUTOMATED NEUTROPHIL # 19.8 TH/MM3 (1.8-7.7); BASOPHIL % 0.1 % (0.0-2.0); HEMATOCRIT 31.9 % (35.0-46.0); HEMO FLAGS DIFF FINAL; LYMPH % 3.7 % (9.0-44.0); LYMPHOCYTE # 0.8 TH/MM3 (1.0-4.8); MEAN CELL VOLUME 91.3 FL (80.0-100.0); MEAN CORPUSCULAR HEMOGLOBIN 30.3 PG (27.0-34.0); MEAN CORPUSCULAR HGB CONC 33.2 % (32.0-36.0); MONO % 5.7 % (0.0-8.0); NEUT % 90.5 % (16.0-70.0); PLATELET COUNT 291 TH/MM3 (150-450); RED BLOOD COUNT 3.49 MIL/MM3 (4.00-5.30); RED CELL DISTRIBUTION WIDTH 14.5 % (11.6-17.2); WHITE BLOOD COUNT 21.8 TH/MM3 (4.0-11.0)
[2017-07-24] MEDS: FAMOTIDINE 20 MG/2 ML VIAL IV PUSH SCH ×2 (10:01→21:03)
[2017-07-24 10:24] LABS: ALKALINE PHOSPHATASE 44 U/L (45-117); ALT (GPT) 16 U/L (10-53); ANION GAP 9 MEQ/L (5-15); AST (GOT) 25 U/L (15-37); BICARBONATE 18.6 MEQ/L (21.0-32.0); BLOOD UREA NITROGEN 68 MG/DL (7-18); CHLORIDE 116 MEQ/L (98-107); GLOMERULAR FILTRATION RATE 33 ML/MIN (>89); MAGNESIUM 1.8 MG/DL (1.5-2.5); POTASSIUM 3.7 MEQ/L (3.5-5.1); SODIUM (NA) 144 MEQ/L (136-145); TOTAL BILIRUBIN ADULT 0.6 MG/DL (0.2-1.0)
[2017-07-24] MEDS ORDERED: METOPROLOL TARTRATE 5 MG/5 ML VIAL ONE (10:55)
[2017-07-24] MEDS ORDERED: METOPROLOL TARTRATE 5 MG/5 ML VIAL IV PUSH ONE (11:30)
[2017-07-24] MEDS ORDERED: DILTIAZEM HCL 25 MG/5 ML VIAL IV PUSH ONE (12:15)
--- NOTE | 2017-07-24 12:17 | ECHRPT ---
Indication: LV FXN CONCLUSIONS Normal left ventricular size. Wall thickness is normal. The left ventricular systolic function is normal with an estimated ejection fraction in the range of 55-60%. The left atrial size is upper limits of normal. Mild mitral valve regurgitation. Aortic valve sclerosis is present. Trace aortic valve regurgitation. The pulmonary valve is not well visualized. BP: 81 / 48 HR: 127 Rhythm: Technical Quality: FINDINGS LEFT VENTRICLE Normal left ventricular size. Wall thickness is normal. The left ventricular systolic function is normal with an estimated ejection fraction in the range of 55-60%. RIGHT VENTRICLE Normal right ventricular size and systolic function. LEFT ATRIUM The left atrial size is upper limits of normal. RIGHT ATRIUM The right atrial size is normal. ATRIAL SEPTUM Normal atrial septal thickness without atrial level shunting by limited color doppler interrogation. AORTA The aortic root and proximal ascending aorta are normal in size on limited imaging. MITRAL VALVE Mild mitral valve regurgitation. AORTIC VALVE Aortic valve sclerosis is present. Trace aortic valve regurgitation. TRICUSPID VALVE Structurally normal tricuspid valve. No tricuspid valve stenosis or regurgitation. PULMONARY VALVE The pulmonary valve is not well visualized. VESSELS The inferior vena cava is normal in size. PERICARDIUM No pericardial effusion. Jean Claude Wallis MD, FACC (Electronically Signed) Final Date:24 July 2017 12:16
--- NOTE | 2017-07-24 12:18 | HHI.IDPN ---
Subjective Subjective Remarks Patient is an 81-year-old female, with known history of colovesical fistula, has had problem with recurrent UTI, scheduled to have surgery July 29, admitted to the hospital after a syncopal episode. She apparently had a syncopal episode about 2 days prior to admission. On the day of admission she had another episode and she was in the bathroom. She has had very poor by mouth intake the last several days. She apparently hasn't had a bowel movement , and when she `urinates, she passes stool and air. She's had some burning. There's been no fever or chills. EMS was called when she had the syncopal episode, and she was in nature fibrillation with RVR and systolic pressure of 80s. She was given fluid resuscitation, and have blood pressure improved. Patient currently has NG tube in place, and she has maroon fluid coming out of her NG tube. She also has a Montiel catheter in place and the output looks like it's maroon color thick fluid. He has some mild abdominal pain. On admission her white count was elevated. Her creatinine was also elevated. She had a preop blood work and her creatinine was elevated at that time. Last June her creatinine was normal. She also had an elevated lactic acid on admission. She was admitted with possible sepsis. CT of the abdomen and pelvis did not show any abnormality. Infectious disease consultation has been requested to evaluate the patient with sepsis, and known history of colovesical fistula. Notes reviewed Temps ok On Neosynephrine Liquid stool in montiel Hgb dropped to 6.9, got 2 units PRBC Creatinine is better CRS notes reviewed Antibiotics Azactam Lines RIJ TLC Past Medical History Hypertension Atrial fibrillation CHF EF 25-30% echo 04/26 Pulmonary fibrosis Pulmonary nodules Hyperparathyroidism Depression CKD Diverticulosis Recurrent UTI Known colovesical fistula Past Surgical History Melanoma, removal Shoulder arthropscopic surgery Bilateral TKA Diverticulosis/itis Colonoscopy 2013: pandiverticulosis severe. Allergies: Coded Allergies: ampicillin (Verified Allergy, Severe, 07/23/17) ciprofloxacin (Verified Allergy, Severe, Rash, 07/23/17) levofloxacin (Verified Allergy, Severe, Rash, 07/23/17) Objective . Vital Signs Date Time Temp Pulse Resp B/P (MAP) Pulse Ox O2 Delivery O2 Flow Rate FiO2 07/24/17 10:03 96 Nasal Cannula 3.50 07/24/17 07:05 15 115/59 100 07/24/17 06:00 106 07/24/17 05:34 96.4 127 49 81/48 97 07/24/17 04:07 122 84/59 07/24/17 04:00 118 07/24/17 04:00 98.1 118 24 96/51 (66) 98 07/24/17 02:00 112 07/24/17 00:00 122 07/24/17 00:00 98.2 122 25 85/54 (64) 99 07/23/17 20:37 94 Nasal Cannula 1.00 07/23/17 20:00 98.8 128 24 105/51 (69) 94 07/23/17 19:00 95 Nasal Cannula 2.00 07/23/17 18:00 117 07/23/17 16:45 98.2 114 20 107/64 (78) 95 07/23/17 16:45 95 Nasal Cannula 2.00 07/23/17 16:45 114 07/23/17 16:20 07/23/17 15:28 92 Nasal Cannula 4.00 07/23/17 15:00 118 112/52 (72) 07/23/17 13:00 102 100/60 (73) 07/23/17 12:20 101 24 97/63 (74) 94 Nasal Cannula 2.00 07/24/17 07/24/17 07/25/17 15:00 23:00 07:00 Intake Total 600 ml Balance 600 ml Packed Cells 400 ml Blood Product IV Normal Saline Flush 200 ml . Laboratory Tests Test 07/23/17 10:15 07/23/17 14:24 07/24/17 02:40 07/24/17 08:57 White Blood Count 21.5 TH/MM3 23.2 TH/MM3 21.8 TH/MM3 Red Blood Count 3.42 MIL/MM3 3.42 MIL/MM3 3.49 MIL/MM3 Hemoglobin 10.3 GM/DL 10.2 GM/DL 6.9 GM/DL 10.6 GM/DL Hematocrit 31.2 % 31.5 % 21.4 % 31.9 % Mean Corpuscular Volume 91.0 FL 92.1 FL 91.3 FL Mean Corpuscular Hemoglobin 29.9 PG 29.8 PG 30.3 PG Mean Corpuscular Hemoglobin Concent 32.9 % 32.4 % 33.2 % Red Cell Distribution Width 14.4 % 14.9 % 14.5 % Platelet Count 457 TH/MM3 410 TH/MM3 291 TH/MM3 Mean Platelet Volume 8.8 FL 8.5 FL 7.9 FL Neutrophils (%) (Auto) 82.9 % 85.1 % 90.5 % Lymphocytes (%) (Auto) 8.4 % 7.4 % 3.7 % Monocytes (%) (Auto) 8.6 % 7.4 % 5.7 % Eosinophils (%) (Auto) 0.0 % 0.0 % 0.0 % Basophils (%) (Auto) 0.1 % 0.1 % 0.1 % Neutrophils # (Auto) 17.8 TH/MM3 19.8 TH/MM3 19.8 TH/MM3 Lymphocytes # (Auto) 1.8 TH/MM3 1.7 TH/MM3 0.8 TH/MM3 Monocytes # (Auto) 1.9 TH/MM3 1.7 TH/MM3 1.2 TH/MM3 Eosinophils # (Auto) 0.0 TH/MM3 0.0 TH/MM3 0.0 TH/MM3 Basophils # (Auto) 0.0 TH/MM3 0.0 TH/MM3 0.0 TH/MM3 CBC Comment DIFF FINAL DIFF FINAL DIFF FINAL Differential Comment Laboratory Tests Test 07/23/17 10:15 07/23/17 14:24 07/23/17 22:39 07/24/17 08:57 Blood Urea Nitrogen 108 MG/DL 92 MG/DL 84 MG/DL 68 MG/DL Creatinine 3.89 MG/DL 2.91 MG/DL 2.51 MG/DL 1.51 MG/DL Random Glucose 99 MG/DL 96 MG/DL 98 MG/DL 125 MG/DL Total Protein 7.5 GM/DL 5.2 GM/DL Albumin 2.7 GM/DL 2.0 GM/DL Calcium Level 10.8 MG/DL 9.4 MG/DL 8.9 MG/DL 8.3 MG/DL Magnesium Level 2.4 MG/DL 1.9 MG/DL 1.8 MG/DL Alkaline Phosphatase 55 U/L 44 U/L Aspartate Amino Transf (AST/SGOT) 40 U/L 25 U/L Alanine Aminotransferase (ALT/SGPT) 17 U/L 16 U/L Total Bilirubin 0.5 MG/DL 0.6 MG/DL Sodium Level 126 MEQ/L 134 MEQ/L 139 MEQ/L 144 MEQ/L Potassium Level 5.5 MEQ/L 4.6 MEQ/L 3.8 MEQ/L 3.7 MEQ/L Chloride Level 89 MEQ/L 102 MEQ/L 109 MEQ/L 116 MEQ/L Carbon Dioxide Level 22.1 MEQ/L 21.9 MEQ/L 18.4 MEQ/L 18.6 MEQ/L Anion Gap 15 MEQ/L 10 MEQ/L 12 MEQ/L 9 MEQ/L Estimat Glomerular Filtration Rate 11 ML/MIN 16 ML/MIN 18 ML/MIN 33 ML/MIN Lactic Acid Level 5.2 mmol/L 1.2 mmol/L 1.5 mmol/L Total Creatine Kinase 412 U/L Creatine Kinase MB 2.6 NG/ML Creatine Kinase MB % 0.6 % Troponin I 0.04 NG/ML 0.03 NG/ML Phosphorus Level 2.7 MG/DL 2.4 MG/DL Microbiology Date/Time Source Procedure Growth Status 07/23/17 10:15 Blood Peripheral Aerobic Blood Culture - Preliminary NO GROWTH IN 1 DAY Resulted 07/23/17 10:15 Blood Peripheral Anaerobic Blood Culture - Preliminary NO GROWTH IN 1 DAY Resulted 07/23/17 10:10 Blood Peripheral Aerobic Blood Culture - Preliminary NO GROWTH IN 1 DAY Resulted 07/23/17 10:10 Blood Peripheral Anaerobic Blood Culture - Preliminary NO GROWTH IN 1 DAY Resulted Imaging Last Impressions Chest X-Ray 07/24/17 0000 Signed Impressions: Service Date/Time: July 00:35 - CONCLUSION: 1. Right central line tip in the right atrium. No pneumothorax seen on this semierect film. 2. Interval development of diffuse interstitial infiltrates throughout both lungs. Valente Longoria MD Head CT 07/23/17 0000 Signed Impressions: Service Date/Time: Sunday, July 23, 2017 13:17 - CONCLUSION: 1. Cerebral atrophy and ischemic small vessel vasculopathy. 2. Remote left cerebellar infarct. Nakul Finn MD Abdomen/Pelvis CT 07/23/17 0000 Signed Impressions: Service Date/Time: Sunday, July 23, 2017 13:19 - CONCLUSION: 1. Fluid-filled distention of the stomach and proximal to mid duodenum with transition zone identified in the fourth portion of duodenum. An obstructing process needs to be excluded. 2. Large calcified gallstone. 3. Simple left renal cyst. 4. Chronic fibrotic lung disease. 5. No evidence of acute diverticulitis. Eric Peralta MD Physical Exam GENERAL: awake and alert, not in respiratory distress. SKIN: Cool and dry. No generalized rash, no ecchymoses and no evidence of embolic lesions. HEAD: Atraumatic. Normocephalic. No temporal wasting, or tenderness. EYES: [place] conjunctiva. No petechia or hemorrhage. Pupils equal, round and reactive to light. Extraocular movements full and intact. No scleral icterus. No injection or drainage. EARS, NOSE AND THROAT: Nose without bleeding or purulent nasal discharge. No sinus tenderness. Mucous membranes pink and moist. No oral lesions noted. No exudate. No oral thrush. Has NGT in place, output is maroon color fluid NECK: Trachea midline. Supple and not tender, no meningeal signs CARDIOVASCULAR: Regular rate and rhythm. No murmurs, rubs or gallops heard RESPIRATORY: Clear to auscultation. Breath sounds equal bilaterally. No rales , wheezing or rhonchi ABDOMEN: Soft, nondistended, has diffuse abdominal tenderness. No guarding or rebound. Bowel sounds present and normoactive. No organomegaly. EXTREMITIES: No clubbing, cyanosis, or edema. No joint effusion, has good ROM. No calf tenderness. Cool NEUROLOGICAL: Awake and alert. Cranial nerves grossly intact. Motor grossly within normal limits. PSYCHIATRIC: Normal affect, calm and cooperative. LINE: No evidence of infection : Montiel in place, liquid stool output. Assessment & Plan Remarks IMPRESSION Syncope, etiology, had hypotension - has had poor po intake, and also has GIB - likely due to volume loss Sepsis, with shock GIB, ?upper, ?lower, has been taking ALeve PM for a while, also with known pandiverticulosis Known colovesical fistula and Hx recurrent UTI Allergy to PCN, has tolerated cephalosporins in the past Renal insufficiency, likely due to hypotension, prerenal, ?NSAID additional factor RECOMMENDATION Follow C/S Consider GI consult IV Cefepime and IV Flagyl Stop Azactam Monitor progress Spoke with Imelda Johnson MD Jul 24, 2017 12:18
[2017-07-24] MEDS: DILTIAZEM INJ 125 MG in SODIUM CHLORIDE 0.9% INJ 100 ML IV PRN ×2 (12:20→23:39)
[2017-07-24] MEDS: DEXT 5%-NACL 0.9% 1000 ML INJ 1,000 ML IV SCH (14:23)
[2017-07-24] MEDS: metroNIDAZOLE 500 MG INJ 100 ML IV SCH ×2 (14:25→21:03)
[2017-07-24] MEDS: CEFEPIME INJ 1,000 MG in SODIUM CHLORIDE 0.9% INJ 100 ML IV SCH (14:25)
[2017-07-24] MEDS ORDERED: DIGOXIN 0.5 MG/2 ML VIAL IV PUSH ONE ×2 (15:45→21:00)
--- NOTE | 2017-07-24 16:01 | HHI.CCPN ---
Subjective Remarks/Hospital Course HISTORY OF PRESENT ILLNESS The patient is a 81-year-old female with past medical history of hypertension, melanoma, atrial fibrillation, who was scheduled to undergo surgery by Dr. Orr for colovesical fistula next Friday for recurrent urinary tract infections. She presented to [facility] ED via EMS after a syncopal episode in the bathroom. According to the report when she stood up she had a syncopal episode and EMS found the patient on the bathroom floor with emesis. She was in atrial fibrillation with RVR at a rate of 140s to 150s and systolic blood pressure in the 80s. She was given IV fluids and Cardizem. Most of the history was obtained from reviewing the medical records as she is lethargic and poor historian. Her initial blood pressure in the ED was 123/63 and her laboratory data was significant for leukocytosis with a WBC of 21.5 and acute renal failure with a BUN of 108, creatinine 3.89 and elevated lactic acid level at 5.2. Chest x-ray in the ED showed interstitial densities and mild cardiomegaly. In the ED she was given 1.5 liters of crystalloids and is currently receiving an additional 1 liter bolus. In addition she was given Rocephin and Zofran. She denies any abdominal pain, nausea, vomiting, chest pain , shortness of breath, cough or any constitutional symptoms. 07/24: Improving renal function with hydration. Intermittent a-fib with RVR. Objective Vital Signs Date Time Temp Pulse Resp B/P (MAP) Pulse Ox O2 Delivery O2 Flow Rate FiO2 07/24/17 12:20 118 106/53 07/24/17 12:00 99.3 20 99 07/24/17 10:03 Nasal Cannula 3.50 Intake and Output 07/24/17 07/24/17 07/25/17 08:00 16:00 00:00 Intake Total 2000 ml 500 ml Output Total 330 ml Balance 1670 ml 500 ml Result Diagram: 07/24/1757 07/24/17856 Objective Remarks PHYSICAL EXAMINATION GENERAL: A 81-year-old quiet female lying in bed. HEENT: Atraumatic, normocephalic. Pupils equal, round and reactive to light and accommodation. Extraocular muscles intact. Conjunctivae pink. Nonicteric sclerae. Oral mucosa within normal. Dry mucous membranes noted. NECK: Supple. Trachea midline. Airway patent. CARDIOVASCULAR: Tachycardic, normal S1-S2. Irreg. No JVD. PULMONARY: Bilateral equal air entry. Few crackles. Comfortable pattern. ABDOMEN: Soft, nontender. No distension. Positive bowel sounds. EXTREMITIES: No cyanosis, clubbing or edema. Well perfused. NEURO: No focal sensory deficit. Lethargic. Moves 4 limbs. Conversant, weak. A/P Assessment and Plan IMPRESSION: 1. Respiratory insufficiency. 2. Severe sepsis from urinary tract contamination (colovesical fistula) 3. Acute renal failure. 4. Lactic acidemia. 5. Hyponatremia and hyperkalemia. 6. Leukocytosis. 7. Atrial fibrillation with RVR. 8. Anemia. 9. Colovesical fistula. 10. History of hypertension. 11. History of melanoma. 12. History of hyperparathyroidism. Plan: 1. Monitor neuro status closely and avoid sedatives. A CT scan of the brain in the ED showed cerebral atrophy and small-vessel ischemic vasculopathy, remote left cerebellar infarct. 2. Continue with oxygen and maintain sats above 92%. 3. Bronchodilators in the form of DuoNeb q. 6 plus q. 2 p.r.n. for shortness of breath. 4. Monitor heart rate and blood pressure closely and maintain MAP greater than 65 mmHg. Serial lactic acid monitoring until cleared. Digoxin for rate control , wean off cardizem gtt. 5. Will obtain a 2-D echo to evaluate LV function. 6. Monitor renal function, Is and Os and avoid nephrotoxins. 7. Continue with IV hydration as stated above. Repeat BMP 07/25. 8. Follow up on CT abdomen and pelvis without contrast. 9. Dr. Orr following. 10. Keep n.p.o. for now and place on Pepcid 10 mg IV q. 12 for GI prophylaxis. 11. Continue with broad-spectrum antibiotics in the form of Cefepime and Metronidazole. and monitor for signs of infections which include fever and WBC. 12. ID Service following. 13. Monitor CBC and coags. 14. Sliding scale insulin if needed for glycemic control. 15. DVT prophylaxis with SCDs and heparin subcu. Overall impression: Improving renal function with hydration. CXR is worrisome for fluid overload; watch breathing carefully. Remains septic and tachycardic. Blaine Velazquez MD Jul 24, 2017 16:01
--- NOTE | 2017-07-24 20:55 | HHI.PR ---
Subjective Remarks C/R Surg afebrile, VSS UO low, still full fo stool no abd pain Objective - Vital Signs Date Time Temp Pulse Resp B/P (MAP) Pulse Ox O2 Delivery O2 Flow Rate FiO2 07/24/17 17:20 110 101/47 07/24/17 16:00 99.5 21 94 07/24/17 10:03 Nasal Cannula 3.50 Result Diagram: 07/24/17 0857 07/24/17 0857 Objective Remarks PE alert Abd - soft, min tympany, urine full stool non-tender A/P Assessment and Plan Imp: colo-vesical fistula -reviewed with pt vigorus fluid resuscitation IV ab's montiel drainage, irrigations of bladder - cont pt may only be strong enough for diverting colostomy at this time - will see how she does next few days Carlo Orr MD Jul 24, 2017 20:55
[2017-07-25] VITALS (11 sets, daily range): BP systolic 99–118; BP diastolic 43–55; PULSE 64–109; RESP 17–25; TEMP 98.2–99.5; O2SAT 92–96
[2017-07-25] MEDS: DEXT 5%-NACL 0.9% 1000 ML INJ 1,000 ML IV SCH (00:17)
[2017-07-25] MEDS: CEFEPIME INJ 1,000 MG in SODIUM CHLORIDE 0.9% INJ 100 ML IV SCH ×2 (00:35→13:00)
[2017-07-25] MEDS: INSULIN NovoLIN REGULAR SUPPLEMENTAL SCALE SQ SCH ×6 (03:00→23:00)
[2017-07-25] MEDS: CHLORHEXIDINE GLUCONATE 2 % 1 PACK (2 CLOTHS) TOP SCH (03:19)
[2017-07-25] MEDS: RESP: ALBUTEROL 2.5 MG/IPRATROPIUM 0.5 MG NEB (SCH) INH ×4 (03:50→20:17)
[2017-07-25] MEDS: metroNIDAZOLE 500 MG INJ 100 ML IV SCH ×3 (05:09→20:22)
[2017-07-25 05:29] LABS: AUTOMATED NEUTROPHIL # 15.4 TH/MM3 (1.8-7.7); BASOPHIL % 0.1 % (0.0-2.0); EOSINOPHIL # 0.2 TH/MM3 (0-0.4); EOSINOPHIL % 0.9 % (0.0-4.0); HEMATOCRIT 27.4 % (35.0-46.0); HEMO FLAGS DIFF FINAL; LYMPH % 7.6 % (9.0-44.0); LYMPHOCYTE # 1.4 TH/MM3 (1.0-4.8); MEAN CELL VOLUME 91.8 FL (80.0-100.0); MEAN CORPUSCULAR HEMOGLOBIN 31.1 PG (27.0-34.0); MEAN CORPUSCULAR HGB CONC 33.8 % (32.0-36.0); MONO % 8.5 % (0.0-8.0); NEUT % 82.9 % (16.0-70.0); PLATELET COUNT 252 TH/MM3 (150-450); RED BLOOD COUNT 2.98 MIL/MM3 (4.00-5.30); RED CELL DISTRIBUTION WIDTH 14.8 % (11.6-17.2); WHITE BLOOD COUNT 18.6 TH/MM3 (4.0-11.0)
--- NOTE | 2017-07-25 05:29 | RADRPT ---
EXAM DATE/TIME: 07/25/2017 04:24 [place] COMPARISON: CHEST SINGLE AP, July 24, 2017, 0:35. INDICATIONS : Hypoxemia. MEDICAL HISTORY : None. SURGICAL HISTORY : None. ENCOUNTER: Subsequent ACUITY: 3 days PAIN SCORE: Non-responsive. LOCATION: Bilateral chest FINDINGS: Single AP view of the chest. Right subclavian central venous catheter remains in place. Nasogastric t ube is no longer seen. There is inferior left lower lobe atelectasis versus consolidation and a small left pleural effusion. No evidence of pneumothorax. Cardiomediastinal silhouette unchanged. Right up per quadrant abdominal calcification likely representing a gallstone. CONCLUSION: Small left pleural effusion now seen along with adjacent mild left lower lobe consolidation versus at electasis. Cardiac silhouette enlargement unchanged. Kevin Evangelista MD on July 25, 2017 at 5:25 Board Certified Radiologist. This report was verified electronically.
[2017-07-25 06:05] LABS: BICARBONATE 19.7 MEQ/L (21.0-32.0); MAGNESIUM 1.7 MG/DL (1.5-2.5); POTASSIUM 3.5 MEQ/L (3.5-5.1)
[2017-07-25] MEDS: FAMOTIDINE 20 MG/2 ML VIAL IV PUSH SCH ×2 (08:47→20:22)
[2017-07-25] MEDS: LOSARTAN 25 MG TAB PO SCH (08:47)
[2017-07-25] MEDS: DIGOXIN 0.5 MG/2 ML VIAL IV PUSH SCH (08:47)
--- NOTE | 2017-07-25 09:01 | HHI.IDPN ---
Subjective Subjective Remarks Patient is an 81-year-old female, with known history of colovesical fistula, has had problem with recurrent UTI, scheduled to have surgery July 29, admitted to the hospital after a syncopal episode. She apparently had a syncopal episode about 2 days prior to admission. On the day of admission she had another episode and she was in the bathroom. She has had very poor by mouth intake the last several days. She apparently hasn't had a bowel movement , and when she `urinates, she passes stool and air. She's had some burning. There's been no fever or chills. EMS was called when she had the syncopal episode, and she was in nature fibrillation with RVR and systolic pressure of 80s. She was given fluid resuscitation, and have blood pressure improved. Patient currently has NG tube in place, and she has maroon fluid coming out of her NG tube. She also has a Montiel catheter in place and the output looks like it's maroon color thick fluid. He has some mild abdominal pain. On admission her white count was elevated. Her creatinine was also elevated. She had a preop blood work and her creatinine was elevated at that time. Last June her creatinine was normal. She also had an elevated lactic acid on admission. She was admitted with possible sepsis. CT of the abdomen and pelvis did not show any abnormality. Infectious disease consultation has been requested to evaluate the patient with sepsis, and known history of colovesical fistula. Notes reviewed D/W RN Temps okBP good, not on pressors Liquid stool coming out from montiel states patient did not sleep last night Patient currently sleeping Creatinine better BC negative Antibiotics Current Medications Cefepime Flagyl Medications (Trade) Dose Ordered Sig/April Route Start Time Stop Time Status Last Admin (NS Flush) 2 ml UNSCH PRN IVF 07/23/17 10:15 (Pepcid Inj) 10 mg Q12HR IV PUSH 07/23/17 13:45 07/25/17 08:47 (Duoneb Neb) 1 ampule Q6HR NEB INH 07/23/17 16:00 07/25/17 03:50 (Duoneb Neb) 1 ampule Q2HR NEB PRN INH 07/23/17 13:45 Miscellaneous Information 1 Q361D XX 07/23/17 13:45 (Chlorhexidine 2% Cloth) 3 pack Taper DAILY@04 TOP 07/24/17 04:00 07/20/18 03:59 07/25/17 03:19 (Chlorhexidine 2% Cloth) 3 pack UNSCH PRN TOP 07/23/17 13:45 (D50w (Vial) Inj) 50 ml UNSCH PRN IV PUSH 07/23/17 14:00 (Glucagon Inj) 1 mg UNSCH PRN OTHER 07/23/17 14:00 (NovoLIN R SUPPLEMENTAL SCALE) 1 Q4H SQ 07/23/17 15:00 (Cozaar) 25 mg DAILY PO 07/24/17 09:00 Phenylephrine HCl 40 mg/Dextrose 500 ml @ 30 mls/hr TITRATE PRN IV 07/24/17 02:00 07/24/17 04:07 (Brethine Inj) 1 mg UNSCH PRN SQ 07/24/17 02:00 Diltiazem HCl 125 mg/Sodium Chloride 125 ml @ 5 mls/hr TITRATE PRN IV 07/24/17 12:00 07/24/17 23:39 Cefepime HCl 1000 mg/Sodium Chloride 100 ml @ 200 mls/hr Q12H IV 07/24/17 13:00 07/25/17 00:35 Metronidazole 100 ml @ 100 mls/hr Q8H IV 07/24/17 13:00 07/25/17 05:09 (Lanoxin Inj) 0.125 mg DAILY IV PUSH 07/25/17 09:00 07/25/17 08:47 Potassium Chloride/Sodium Chloride 1,000 ml @ 84 mls/hr [id number] IV 07/25/17 08:45 Lines RIJ TLC Past Medical History Hypertension Atrial fibrillation CHF EF 25-30% echo 04/26 Pulmonary fibrosis Pulmonary nodules Hyperparathyroidism Depression CKD Diverticulosis Recurrent UTI Known colovesical fistula Past Surgical History Melanoma, removal Shoulder arthropscopic surgery Bilateral TKA Diverticulosis/itis Colonoscopy 2013: pandiverticulosis severe. Allergies: Coded Allergies: ampicillin (Verified Allergy, Severe, 07/23/17) ciprofloxacin (Verified Allergy, Severe, Rash, 07/23/17) levofloxacin (Verified Allergy, Severe, Rash, 07/23/17) Objective . Vital Signs Date Time Temp Pulse Resp B/P (MAP) Pulse Ox O2 Delivery O2 Flow Rate FiO2 07/25/17 08:00 64 07/25/17 08:00 92 Nasal Cannula 6.00 07/25/17 08:00 99.1 64 18 104/52 (69) 92 07/25/17 04:00 98.2 70 20 118/55 (76) 96 07/25/17 03:50 96 Nasal Cannula 3.00 07/25/17 02:00 78 07/25/17 00:19 59 99/43 07/25/17 00:00 98.4 67 20 99/43 (61) 96 07/25/17 00:00 67 07/24/17 23:39 73 98/56 07/24/17 22:08 72 89/54 07/24/17 22:00 90 07/24/17 20:21 Nasal Cannula 3.00 07/24/17 20:00 94 07/24/17 20:00 97 Nasal Cannula 2.00 07/24/17 20:00 99.0 94 20 105/57 (73) 97 07/24/17 17:20 110 101/47 07/24/17 16:30 121 101/77 07/24/17 16:00 99.5 89 21 101/77 (85) 94 07/24/17 16:00 89 07/24/17 12:20 118 106/53 07/24/17 12:00 99.3 116 20 102/55 (71) 99 07/24/17 12:00 116 07/24/17 10:03 96 Nasal Cannula 3.50 . Laboratory Tests Test 07/23/17 10:15 07/23/17 14:24 07/24/17 02:40 07/24/17 08:57 White Blood Count 21.5 TH/MM3 23.2 TH/MM3 21.8 TH/MM3 Red Blood Count 3.42 MIL/MM3 3.42 MIL/MM3 3.49 MIL/MM3 Hemoglobin 10.3 GM/DL 10.2 GM/DL 6.9 GM/DL 10.6 GM/DL Hematocrit 31.2 % 31.5 % 21.4 % 31.9 % Mean Corpuscular Volume 91.0 FL 92.1 FL 91.3 FL Mean Corpuscular Hemoglobin 29.9 PG 29.8 PG 30.3 PG Mean Corpuscular Hemoglobin Concent 32.9 % 32.4 % 33.2 % Red Cell Distribution Width 14.4 % 14.9 % 14.5 % Platelet Count 457 TH/MM3 410 TH/MM3 291 TH/MM3 Mean Platelet Volume 8.8 FL 8.5 FL 7.9 FL Neutrophils (%) (Auto) 82.9 % 85.1 % 90.5 % Lymphocytes (%) (Auto) 8.4 % 7.4 % 3.7 % Monocytes (%) (Auto) 8.6 % 7.4 % 5.7 % Eosinophils (%) (Auto) 0.0 % 0.0 % 0.0 % Basophils (%) (Auto) 0.1 % 0.1 % 0.1 % Neutrophils # (Auto) 17.8 TH/MM3 19.8 TH/MM3 19.8 TH/MM3 Lymphocytes # (Auto) 1.8 TH/MM3 1.7 TH/MM3 0.8 TH/MM3 Monocytes # (Auto) 1.9 TH/MM3 1.7 TH/MM3 1.2 TH/MM3 Eosinophils # (Auto) 0.0 TH/MM3 0.0 TH/MM3 0.0 TH/MM3 Basophils # (Auto) 0.0 TH/MM3 0.0 TH/MM3 0.0 TH/MM3 CBC Comment DIFF FINAL DIFF FINAL DIFF FINAL Differential Comment Test 07/25/17 05:15 White Blood Count 18.6 TH/MM3 Red Blood Count 2.98 MIL/MM3 Hemoglobin 9.3 GM/DL Hematocrit 27.4 % Mean Corpuscular Volume 91.8 FL Mean Corpuscular Hemoglobin 31.1 PG Mean Corpuscular Hemoglobin Concent 33.8 % Red Cell Distribution Width 14.8 % Platelet Count 252 TH/MM3 Mean Platelet Volume 8.2 FL Neutrophils (%) (Auto) 82.9 % Lymphocytes (%) (Auto) 7.6 % Monocytes (%) (Auto) 8.5 % Eosinophils (%) (Auto) 0.9 % Basophils (%) (Auto) 0.1 % Neutrophils # (Auto) 15.4 TH/MM3 Lymphocytes # (Auto) 1.4 TH/MM3 Monocytes # (Auto) 1.6 TH/MM3 Eosinophils # (Auto) 0.2 TH/MM3 Basophils # (Auto) 0.0 TH/MM3 CBC Comment DIFF FINAL Differential Comment Laboratory Tests Test 07/23/17 10:15 07/23/17 14:24 07/23/17 22:39 07/24/17 08:57 Blood Urea Nitrogen 108 MG/DL 92 MG/DL 84 MG/DL 68 MG/DL Creatinine 3.89 MG/DL 2.91 MG/DL 2.51 MG/DL 1.51 MG/DL Random Glucose 99 MG/DL 96 MG/DL 98 MG/DL 125 MG/DL Total Protein 7.5 GM/DL 5.2 GM/DL Albumin 2.7 GM/DL 2.0 GM/DL Calcium Level 10.8 MG/DL 9.4 MG/DL 8.9 MG/DL 8.3 MG/DL Magnesium Level 2.4 MG/DL 1.9 MG/DL 1.8 MG/DL Alkaline Phosphatase 55 U/L 44 U/L Aspartate Amino Transf (AST/SGOT) 40 U/L 25 U/L Alanine Aminotransferase (ALT/SGPT) 17 U/L 16 U/L Total Bilirubin 0.5 MG/DL 0.6 MG/DL Sodium Level 126 MEQ/L 134 MEQ/L 139 MEQ/L 144 MEQ/L Potassium Level 5.5 MEQ/L 4.6 MEQ/L 3.8 MEQ/L 3.7 MEQ/L Chloride Level 89 MEQ/L 102 MEQ/L 109 MEQ/L 116 MEQ/L Carbon Dioxide Level 22.1 MEQ/L 21.9 MEQ/L 18.4 MEQ/L 18.6 MEQ/L Anion Gap 15 MEQ/L 10 MEQ/L 12 MEQ/L 9 MEQ/L Estimat Glomerular Filtration Rate 11 ML/MIN 16 ML/MIN 18 ML/MIN 33 ML/MIN Lactic Acid Level 5.2 mmol/L 1.2 mmol/L 1.5 mmol/L Total Creatine Kinase 412 U/L Creatine Kinase MB 2.6 NG/ML Creatine Kinase MB % 0.6 % Troponin I 0.04 NG/ML 0.03 NG/ML Phosphorus Level 2.7 MG/DL 2.4 MG/DL Test 07/25/17 05:15 Blood Urea Nitrogen 53 MG/DL Creatinine 1.07 MG/DL Random Glucose 115 MG/DL Calcium Level 8.4 MG/DL Magnesium Level 1.7 MG/DL Sodium Level 146 MEQ/L Potassium Level 3.5 MEQ/L Chloride Level 120 MEQ/L Carbon Dioxide Level 19.7 MEQ/L Anion Gap 6 MEQ/L Estimat Glomerular Filtration Rate 49 ML/MIN Microbiology Date/Time Source Procedure Growth Status 07/23/17 10:15 Blood Peripheral Aerobic Blood Culture - Preliminary NO GROWTH IN 1 DAY Resulted 07/23/17 10:15 Blood Peripheral Anaerobic Blood Culture - Preliminary NO GROWTH IN 1 DAY Resulted 07/23/17 10:10 Blood Peripheral Aerobic Blood Culture - Preliminary NO GROWTH IN 1 DAY Resulted 07/23/17 10:10 Blood Peripheral Anaerobic Blood Culture - Preliminary NO GROWTH IN 1 DAY Resulted Imaging Last Impressions Chest X-Ray 07/24/17 0000 Signed Impressions: Service Date/Time: July 00:35 - CONCLUSION: 1. Right central line tip in the right atrium. No pneumothorax seen on this semierect film. 2. Interval development of diffuse interstitial infiltrates throughout both lungs. Valente Longoria MD Head CT 07/23/17 0000 Signed Impressions: Service Date/Time: Sunday, July 23, 2017 13:17 - CONCLUSION: 1. Cerebral atrophy and ischemic small vessel vasculopathy. 2. Remote left cerebellar infarct. Nakul Finn MD Abdomen/Pelvis CT 07/23/17 0000 Signed Impressions: Service Date/Time: Sunday, July 23, 2017 13:19 - CONCLUSION: 1. Fluid-filled distention of the stomach and proximal to mid duodenum with transition zone identified in the fourth portion of duodenum. An obstructing process needs to be excluded. 2. Large calcified gallstone. 3. Simple left renal cyst. 4. Chronic fibrotic lung disease. 5. No evidence of acute diverticulitis. Eric Peralta MD Physical Exam GENERAL: resting, not in respiratory distress. SKIN: Cool and dry. No generalized rash, no ecchymoses and no evidence of embolic lesions. HEAD: Atraumatic. Normocephalic. No temporal wasting, or tenderness. EYES: [place] conjunctiva. No petechia or hemorrhage. Pupils equal, round and reactive to light. Extraocular movements full and intact. No scleral icterus. No injection or drainage. EARS, NOSE AND THROAT: Nose without bleeding or purulent nasal discharge. No sinus tenderness. Mucous membranes pink and moist. No oral lesions noted. No exudate. No oral thrush. Has NGT in place, output is maroon color fluid NECK: Trachea midline. Supple and not tender, no meningeal signs CARDIOVASCULAR: Regular rate and rhythm. No murmurs, rubs or gallops heard RESPIRATORY: Clear to auscultation. Breath sounds equal bilaterally. No rales , wheezing or rhonchi ABDOMEN: Soft, nondistended, has diffuse abdominal tenderness. No guarding or rebound. Bowel sounds present and normoactive. No organomegaly. EXTREMITIES: No clubbing, cyanosis, or edema. No joint effusion, has good ROM. No calf tenderness. Cool NEUROLOGICAL: Awake and alert. Cranial nerves grossly intact. Motor grossly within normal limits. PSYCHIATRIC: Normal affect, calm and cooperative. LINE: No evidence of infection : Montiel in place, liquid stool output. Assessment & Plan Remarks IMPRESSION Syncope, etiology, had hypotension - has had poor po intake, and also has GIB - likely due to volume loss Sepsis, S/P shock, BP better GIB, ?upper, ?lower, has been taking ALeve PM for a while, also with known pandiverticulosis - Hgb stable Known colovesical fistula and Hx recurrent UTI Allergy to PCN, has tolerated cephalosporins in the past Renal insufficiency, likely due to hypotension, prerenal, ?NSAID additional factor RECOMMENDATION Follow C/S Continue IV Cefepime and IV Flagyl Monitor progress CRS following, deciding on surgery Spoke with D/W RN Dr Alvarado available this weekend if needed Imelda Johnson MD Jul 25, 2017 09:01
[2017-07-25] MEDS: 1/2 NS + KCL 20 MEQ INJ 1,000 ML IV SCH ×2 (09:32→20:34)
--- NOTE | 2017-07-25 17:38 | HHI.CCPN ---
Subjective Remarks/Hospital Course HISTORY OF PRESENT ILLNESS The patient is a 81-year-old female with past medical history of hypertension, melanoma, atrial fibrillation, who was scheduled to undergo surgery by Dr. Orr for colovesical fistula next Friday for recurrent urinary tract infections. She presented to [facility] ED via EMS after a syncopal episode in the bathroom. According to the report when she stood up she had a syncopal episode and EMS found the patient on the bathroom floor with emesis. She was in atrial fibrillation with RVR at a rate of 140s to 150s and systolic blood pressure in the 80s. She was given IV fluids and Cardizem. Most of the history was obtained from reviewing the medical records as she is lethargic and poor historian. Her initial blood pressure in the ED was 123/63 and her laboratory data was significant for leukocytosis with a WBC of 21.5 and acute renal failure with a BUN of 108, creatinine 3.89 and elevated lactic acid level at 5.2. Chest x-ray in the ED showed interstitial densities and mild cardiomegaly. In the ED she was given 1.5 liters of crystalloids and is currently receiving an additional 1 liter bolus. In addition she was given Rocephin and Zofran. She denies any abdominal pain, nausea, vomiting, chest pain , shortness of breath, cough or any constitutional symptoms. 07/24: Improving renal function with hydration. Intermittent a-fib with RVR. 07/25: Remains confused and delirious. Very poor by mouth intake. In A. fib on Cardizem drip at 5 mg per hour. Objective Vital Signs Date Time Temp Pulse Resp B/P (MAP) Pulse Ox O2 Delivery O2 Flow Rate FiO2 07/25/17 16:00 99.1 74 19 108/53 (71) 93 07/25/17 09:20 Nasal Cannula 5.00 Intake and Output 07/25/17 07/25/17 07/26/17 08:00 16:00 00:00 Intake Total 1764 ml Output Total 450 ml Balance 1314 ml Result Diagram: 07/25/17 0515 07/25/17 0515 Imaging Last Impressions Chest X-Ray 07/25/17 0400 Signed Impressions: Service Date/Time: Tuesday, July 25, 2017 04:24 - CONCLUSION: Small left pleural effusion now seen along with adjacent mild left lower lobe consolidation versus atelectasis. Cardiac silhouette enlargement unchanged. Kevin Evangelista MD Head CT 07/23/17 0000 Signed Impressions: Service Date/Time: Sunday, July 23, 2017 13:17 - CONCLUSION: 1. Cerebral atrophy and ischemic small vessel vasculopathy. 2. Remote left cerebellar infarct. Nakul Finn MD Abdomen/Pelvis CT 07/23/17 0000 Signed Impressions: Service Date/Time: Sunday, July 23, 2017 13:19 - CONCLUSION: 1. Fluid-filled distention of the stomach and proximal to mid duodenum with transition zone identified in the fourth portion of duodenum. An obstructing process needs to be excluded. 2. Large calcified gallstone. 3. Simple left renal cyst. 4. Chronic fibrotic lung disease. 5. No evidence of acute diverticulitis. Eric Peralta MD Objective Remarks PHYSICAL EXAMINATION GENERAL: A 81-year-old quiet female lying in bed. HEENT: Atraumatic, normocephalic. Pupils equal, round and reactive to light and accommodation. Extraocular muscles intact. Conjunctivae pink. Nonicteric sclerae. Oral mucosa within normal. Dry mucous membranes noted. NECK: Supple. Trachea midline. Airway patent. CARDIOVASCULAR: Tachycardic, normal S1-S2. Irreg. No JVD. PULMONARY: Bilateral equal air entry. Few crackles. Comfortable pattern. ABDOMEN: Soft, nontender. No distension. Positive bowel sounds. EXTREMITIES: No cyanosis, clubbing or edema. Well perfused. NEURO: No focal sensory deficit. Lethargic. Moves 4 limbs. Conversant, weak. Urinary Catheter: Yes Assessment to: Continue A/P Assessment and Plan IMPRESSION: 1. Respiratory insufficiency. 2. Severe sepsis from urinary tract contamination (colovesical fistula) 3. Acute renal failure. 4. Lactic acidemia. 5. Hyponatremia and hyperkalemia. 6. Leukocytosis. 7. Atrial fibrillation with RVR. 8. Anemia. 9. Colovesical fistula. 10. History of hypertension. 11. History of melanoma. 12. History of hyperparathyroidism. Plan: 1. Monitor neuro status closely and avoid sedatives. A CT scan of the brain in the ED showed cerebral atrophy and small-vessel ischemic vasculopathy, remote left cerebellar infarct. 2. Continue with oxygen and maintain sats above 92%. 3. Bronchodilators in the form of DuoNeb q. 6 plus q. 2 p.r.n. for shortness of breath. 4. Monitor heart rate and blood pressure closely and maintain MAP greater than 65 mmHg. Serial lactic acid monitoring until cleared. Digoxin for rate control , attempt to wean off cardizem gtt. 5. F/u 2-D echo to evaluate LV function. 6. Monitor renal function, Is and Os and avoid nephrotoxins. 7. Continue with IV hydration as stated above. Monitor and replete electrolytes 8. CT abdomen and pelvis without contrast results noted-defer to Dr. Orr. 9. Dr. Orr following an deciding regarding diverting colostomy and subsequent repair of colovesical fistula at a later date 10. Clear liquid diet per Dr. Orr, Pepcid 10 mg IV q. 12 for GI prophylaxis. 11. Continue with broad-spectrum antibiotics in the form of Cefepime and Metronidazole. and monitor for signs of infections which include fever and WBC. 12. ID Service following. 13. Monitor CBC and coags. 14. Sliding scale insulin if needed for glycemic control. 15. DVT prophylaxis with SCDs and heparin subcu. Overall impression: Improving renal function with hydration. CXR is worrisome for fluid overload; watch breathing carefully. Remains septic and tachycardic. Daniele Shelley MD Jul 25, 2017 17:38
--- NOTE | 2017-07-25 18:04 | HHI.PR ---
Subjective Remarks C/R Surg afebrile, VSS UO better, still full of stool no abd pain Min BM Objective - Vital Signs Date Time Temp Pulse Resp B/P (MAP) Pulse Ox O2 Delivery O2 Flow Rate FiO2 07/25/17 16:00 99.1 74 19 108/53 (71) 93 07/25/17 09:20 Nasal Cannula 5.00 Result Diagram: 07/25/1715 07/25/1715 Objective Remarks PE alert Abd - soft, min tympany, urine full stool non-tender A/P Assessment and Plan Imp: colo-vesical fistula -reviewed with pt vigorus fluid resuscitation IV ab's montiel drainage, irrigations of bladder - cont pt may only be strong enough for diverting colostomy at this time - will see how she does next few days start PO nutrition Carlo Orr MD Jul 25, 2017 18:03
[2017-07-25] MEDS: DILTIAZEM INJ 125 MG in SODIUM CHLORIDE 0.9% INJ 100 ML IV PRN (22:07)
[2017-07-26] VITALS (10 sets, daily range): BP systolic 101–115; BP diastolic 48–56; PULSE 58–95; RESP 15–25; TEMP 97.9–99.1; O2SAT 92–96
[2017-07-26] MEDS: CEFEPIME INJ 1,000 MG in SODIUM CHLORIDE 0.9% INJ 100 ML IV SCH ×2 (01:08→13:00)
[2017-07-26] MEDS: MORPHINE SULFATE 2 MG/ML INJ IV PRN ×3 (01:21→20:12)
[2017-07-26] MEDS: INSULIN NovoLIN REGULAR SUPPLEMENTAL SCALE SQ SCH ×6 (03:00→23:00)
[2017-07-26] MEDS: CHLORHEXIDINE GLUCONATE 2 % 1 PACK (2 CLOTHS) TOP SCH (03:30)
[2017-07-26] MEDS: RESP: ALBUTEROL 2.5 MG/IPRATROPIUM 0.5 MG NEB (SCH) INH ×4 (04:23→21:07)
[2017-07-26] MEDS: metroNIDAZOLE 500 MG INJ 100 ML IV SCH ×3 (04:37→20:12)
[2017-07-26] MEDS: FAMOTIDINE 20 MG/2 ML VIAL IV PUSH SCH ×2 (09:00→20:13)
--- NOTE | 2017-07-26 09:15 | HHI.CCPN ---
Subjective Remarks/Hospital Course HISTORY OF PRESENT ILLNESS The patient is a 81-year-old female with past medical history of hypertension, melanoma, atrial fibrillation, who was scheduled to undergo surgery by Dr. Orr for colovesical fistula next Friday for recurrent urinary tract infections. She presented to [facility] ED via EMS after a syncopal episode in the bathroom. According to the report when she stood up she had a syncopal episode and EMS found the patient on the bathroom floor with emesis. She was in atrial fibrillation with RVR at a rate of 140s to 150s and systolic blood pressure in the 80s. She was given IV fluids and Cardizem. Most of the history was obtained from reviewing the medical records as she is lethargic and poor historian. Her initial blood pressure in the ED was 123/63 and her laboratory data was significant for leukocytosis with a WBC of 21.5 and acute renal failure with a BUN of 108, creatinine 3.89 and elevated lactic acid level at 5.2. Chest x-ray in the ED showed interstitial densities and mild cardiomegaly. In the ED she was given 1.5 liters of crystalloids and is currently receiving an additional 1 liter bolus. In addition she was given Rocephin and Zofran. She denies any abdominal pain, nausea, vomiting, chest pain , shortness of breath, cough or any constitutional symptoms. 07/24: Improving renal function with hydration. Intermittent a-fib with RVR. 07/25: Remains confused and delirious. Very poor by mouth intake. In A. fib on Cardizem drip at 5 mg per hour. Subjective: 07/26 Ash occluded and was replaced. Bladder scan with no evidence of retention. Delirium overnight. Rate controlled on digoxin IV and Cardizem drip at 5 mg/hr, not cooperative with po meds. Objective Vital Signs Date Time Temp Pulse Resp B/P (MAP) Pulse Ox O2 Delivery O2 Flow Rate FiO2 07/26/17 04:00 98.8 78 20 109/48 (68) 94 07/25/17 20:17 Nasal Cannula 5.00 Intake and Output 07/26/17 07/26/17 07/27/17 08:00 16:00 00:00 Intake Total 240 ml Output Total 200 ml Balance 40 ml Result Diagram: 07/25/1715 07/25/17514 Imaging Last Impressions Chest X-Ray 07/25/17 0400 Signed Impressions: Service Date/Time: Tuesday, July 25, 2017 04:24 - CONCLUSION: Small left pleural effusion now seen along with adjacent mild left lower lobe consolidation versus atelectasis. Cardiac silhouette enlargement unchanged. Kevin Evangelista MD Head CT 07/23/17 0000 Signed Impressions: Service Date/Time: Sunday, July 23, 2017 13:17 - CONCLUSION: 1. Cerebral atrophy and ischemic small vessel vasculopathy. 2. Remote left cerebellar infarct. Nakul Finn MD Abdomen/Pelvis CT 07/23/17 0000 Signed Impressions: Service Date/Time: Sunday, July 23, 2017 13:19 - CONCLUSION: 1. Fluid-filled distention of the stomach and proximal to mid duodenum with transition zone identified in the fourth portion of duodenum. An obstructing process needs to be excluded. 2. Large calcified gallstone. 3. Simple left renal cyst. 4. Chronic fibrotic lung disease. 5. No evidence of acute diverticulitis. Eric Peralta MD Objective Remarks PHYSICAL EXAMINATION GENERAL: A 81-year-old female laying in ISC bed. HEENT: Atraumatic, normocephalic. Pupils equal, round and reactive to light and accommodation. Extraocular muscles intact. NECK: Supple. Trachea midline. Airway patent. CARDIOVASCULAR: Irreg, rate 70s to 80s. No JVD. PULMONARY: Bilateral equal air entry, breathing comfortably on 5 L nasal cannula. Sats 98%. ABDOMEN: Soft, suprapubic tenderness without rebound. No distension. Positive bowel sounds. Ash catheter in bladder with feculent -appearing urine output EXTREMITIES: No cyanosis, clubbing or edema. Well perfused. NEURO: Awake, appears to be hallucinating. Moves all 4 extremities to command. Unable to answer questions of orientation A/P Assessment and Plan IMPRESSION: 1. Respiratory insufficiency. 2. Severe sepsis from urinary tract contamination (colovesical fistula) 3. Acute renal failure. 4. Lactic acidemia (resolved) 5. Hypernatremia and hyperkalemia. Chronic Hyponatremia, Acute dehydration ( resolved) 6. Leukocytosis. 7. Atrial fibrillation with RVR. 8. Chronic Anemia. 9. Colovesical fistula. 10. History of hypertension. 11. History of melanoma. 12. History of hyperparathyroidism. Plan: 1. Acute Delirium - Monitor neuro status closely and avoid sedatives/benzos. A CT scan of the brain in the ED showed cerebral atrophy and small-vessel ischemic vasculopathy, remote left cerebellar infarct. 2. Continue with oxygen and maintain sats above 92%. 3. Bronchodilators in the form of DuoNeb q. 6 plus q. 2 p.r.n. for shortness of breath. 4. Monitor heart rate and blood pressure closely and maintain MAP greater than 65 mmHg. lactic acidemia - lactic acid cleared. Digoxin for rate control, attempt to wean off cardizem gtt, consider transition to po Cardizem when able to reliably take po. She is not chronically on anticoagulation for her a fib. 5. 2-D echo from 07/24Normal LV EF at 55-60%. Left atrium at upper limits of normal size 6. Monitor renal function, Is and Os and avoid nephrotoxins. 7. On 0.45 NaCl with 20 mEq of KCl per liter at 84 mL per hour 8. Dr. Orr following an deciding regarding diverting colostomy and subsequent repair of colovesical fistula. Ash replaced today, flush intermittently as needed and evaluate patency. 9. Clear liquid diet per Dr. Orr, Pepcid 10 mg IV q. 12 for GI prophylaxis. 10. Continue with broad-spectrum antibiotics in the form of Cefepime and Metronidazole. Blood cultures from 07/23/17 are negative. 11. ID Service following, Dr. Johnson. 12. Monitor CBC and coags. 13. Low dose Sliding scale insulin if needed for glycemic control. 14. DVT prophylaxis with SCDs and heparin subcut. ACCESS - R I J CVL 07/24 #3. updated at bedside. Discussed with Dr. Erickson who states would start CBI to avoid Ash obstruction Level 2 Followup. Ashly Mehta MD Jul 26, 2017 09:15
[2017-07-26] MEDS: DIGOXIN 0.5 MG/2 ML VIAL IV PUSH SCH (09:52)
--- NOTE | 2017-07-26 10:38 | HHI.PR ---
Subjective Remarks Colovesical fistula, urosepsis confused Objective Vital Signs Date Time Temp Pulse Resp B/P (MAP) Pulse Ox O2 Delivery O2 Flow Rate FiO2 07/26/17 10:04 92 Nasal Cannula 5.00 07/26/17 08:00 93 Nasal Cannula 5.00 Humidified 07/26/17 08:00 95 07/26/17 08:00 98.5 95 22 107/55 (72) 93 07/26/17 04:00 98.8 78 20 109/48 (68) 94 07/26/17 02:00 69 07/26/17 00:00 64 07/26/17 00:00 98.8 64 20 101/54 (70) 93 07/25/17 22:07 80 116/53 07/25/17 22:00 80 07/25/17 20:17 94 Nasal Cannula 5.00 07/25/17 20:00 99.5 109 25 104/50 (68) 96 07/25/17 20:00 97 07/25/17 20:00 96 Nasal Cannula 5.00 07/25/17 16:00 99.1 74 19 108/53 (71) 93 07/25/17 16:00 74 07/25/17 12:00 70 07/25/17 12:00 99.3 70 17 116/53 (74) 95 I/O 07/25/17 07/25/17 07/25/17 07/26/17 07/26/17 07/26/17 07:00 15:00 23:00 07:00 15:00 23:00 Intake Total 1889 ml 200 ml 240 ml Output Total 450 ml 800 ml 200 ml Balance 1439 ml -600 ml 40 ml Intake Oral 240 ml 200 ml 240 ml IV Total 1469 ml Other 180 ml Output Urine Total 450 ml 800 ml 200 ml # Voids 3 # Bowel Movements 0 3 Result Diagram: 07/25/17 0515 07/25/17 0515 Objective Remarks montiel with stool, required changing this am Assessment and Plan Assessment and Plan OK for cbi Possible diversion later this week Jasmine Erickson MD Jul 26, 2017 10:38
[2017-07-26] MEDS: 1/2 NS + KCL 20 MEQ INJ 1,000 ML IV SCH ×2 (10:52→23:17)
--- NOTE | 2017-07-26 12:26 | EKG ---
Date Performed: 07/24/2017 Time Performed: 10:40:26 PTAGE: 81 years EKG: Atrial fibrillation with rapid ventricular response with PVC(s) Left axis deviation Inferio r infarct - age undetermined Possible anteroseptal infarct - age undetermined Lateral T wave changes may be due to myocardial ischemia Low QRS voltages in precordial leads Abnormal ECG PREVIOUS TRACING : 07/23/2017 11.26 DOCTOR: Chai Alcazar Interpretating Date/Time 07/26/2017 12:25:17
[2017-07-26] MEDS: HEPARIN SODIUM - SQ 10,000 UNITS/ML VIAL SQ SCH ×2 (14:00→23:16)
[2017-07-26] MEDS: DILTIAZEM INJ 125 MG in SODIUM CHLORIDE 0.9% INJ 100 ML IV PRN (23:15)
[2017-07-27] VITALS (11 sets, daily range): BP systolic 89–132; BP diastolic 47–71; PULSE 54–85; RESP 17–29; TEMP 97.4–99.1; O2SAT 92–97
[2017-07-27] MEDS: CEFEPIME INJ 1,000 MG in SODIUM CHLORIDE 0.9% INJ 100 ML IV SCH ×2 (01:24→13:00)
[2017-07-27] MEDS: MORPHINE SULFATE 2 MG/ML INJ IV PRN ×3 (03:10→17:15)
[2017-07-27] MEDS: RESP: ALBUTEROL 2.5 MG/IPRATROPIUM 0.5 MG NEB (SCH) INH ×2 (03:57→09:59)
[2017-07-27] MEDS: CHLORHEXIDINE GLUCONATE 2 % 1 PACK (2 CLOTHS) TOP SCH (04:00)
[2017-07-27] MEDS: HEPARIN SODIUM - SQ 10,000 UNITS/ML VIAL SQ SCH ×3 (05:20→21:33)
[2017-07-27] MEDS: metroNIDAZOLE 500 MG INJ 100 ML IV SCH ×3 (05:20→20:44)
[2017-07-27 06:34] LABS: BASOPHIL % 0.2 % (0.0-2.0); EOSINOPHIL # 0.7 TH/MM3 (0-0.4); EOSINOPHIL % 5.2 % (0.0-4.0); HEMATOCRIT 24.4 % (35.0-46.0); HEMO FLAGS DIFF FINAL; LYMPH % 13.5 % (9.0-44.0); LYMPHOCYTE # 1.7 TH/MM3 (1.0-4.8); MEAN CELL VOLUME 92.9 FL (80.0-100.0); MEAN CORPUSCULAR HGB CONC 32.2 % (32.0-36.0); MONO % 10.2 % (0.0-8.0); NEUT % 70.9 % (16.0-70.0); PLATELET COUNT 301 TH/MM3 (150-450); RED BLOOD COUNT 2.63 MIL/MM3 (4.00-5.30); RED CELL DISTRIBUTION WIDTH 15.3 % (11.6-17.2); WHITE BLOOD COUNT 12.7 TH/MM3 (4.0-11.0)
[2017-07-27] MEDS: INSULIN NovoLIN REGULAR SUPPLEMENTAL SCALE SQ SCH ×5 (07:00→23:00)
[2017-07-27 07:21] LABS: BICARBONATE 19.3 MEQ/L (21.0-32.0); POTASSIUM 4.4 MEQ/L (3.5-5.1)
--- NOTE | 2017-07-27 07:57 | HHI.PR ---
Subjective Remarks Colovesical fistula, urosepsis confused, hallucinations Objective Vital Signs Date Time Temp Pulse Resp B/P (MAP) Pulse Ox O2 Delivery O2 Flow Rate FiO2 07/27/17 04:00 97.9 58 26 132/58 (82) 93 07/27/17 03:15 24 07/27/17 00:00 98.0 79 18 108/52 (70) 93 07/26/17 23:15 57 118/49 07/26/17 23:00 58 07/26/17 21:09 96 Nasal Cannula 4.00 07/26/17 20:00 97.9 88 25 115/50 (71) 95 07/26/17 19:00 92 Nasal Cannula 5.00 07/26/17 16:00 99.1 63 23 103/49 (67) 93 07/26/17 16:00 63 07/26/17 12:00 98.9 67 15 114/56 (75) 96 07/26/17 12:00 67 07/26/17 10:04 92 Nasal Cannula 5.00 07/26/17 08:00 93 Nasal Cannula 5.00 Humidified 07/26/17 08:00 95 07/26/17 08:00 98.5 95 22 107/55 (72) 93 I/O 07/26/17 07/26/17 07/26/17 07/27/17 07/27/17 07/27/17 07:00 15:00 23:00 07:00 15:00 23:00 Intake Total 240 ml 100 ml 120 ml 1280 ml Output Total 200 ml 600 ml 4200 ml Balance 40 ml 100 ml -480 ml -2920 ml Intake Oral 240 ml 120 ml IV Total 100 ml 1280 ml Output Urine Total 200 ml 600 ml 4200 ml # Voids 3 # Bowel Movements 3 Result Diagram: 07/27/17 0530 07/27/17 0530 Objective Remarks cbi keeping montiel patent large amount stool in montiel Assessment and Plan Assessment and Plan Probably diversion this week Per Jasmine Arzate MD Jul 27, 2017 07:57
[2017-07-27] MEDS: 1/2 NS + KCL 20 MEQ INJ 1,000 ML IV SCH ×2 (08:25→16:54)
--- NOTE | 2017-07-27 08:32 | HHI.CCPN ---
Subjective Remarks/Hospital Course HISTORY OF PRESENT ILLNESS The patient is a 81-year-old female with past medical history of hypertension, melanoma, atrial fibrillation, who was scheduled to undergo surgery by Dr. Orr for colovesical fistula next Friday for recurrent urinary tract infections. She presented to [facility] ED via EMS after a syncopal episode in the bathroom. According to the report when she stood up she had a syncopal episode and EMS found the patient on the bathroom floor with emesis. She was in atrial fibrillation with RVR at a rate of 140s to 150s and systolic blood pressure in the 80s. She was given IV fluids and Cardizem. Most of the history was obtained from reviewing the medical records as she is lethargic and poor historian. Her initial blood pressure in the ED was 123/63 and her laboratory data was significant for leukocytosis with a WBC of 21.5 and acute renal failure with a BUN of 108, creatinine 3.89 and elevated lactic acid level at 5.2. Chest x-ray in the ED showed interstitial densities and mild cardiomegaly. In the ED she was given 1.5 liters of crystalloids and is currently receiving an additional 1 liter bolus. In addition she was given Rocephin and Zofran. She denies any abdominal pain, nausea, vomiting, chest pain , shortness of breath, cough or any constitutional symptoms. 07/24: Improving renal function with hydration. Intermittent a-fib with RVR. 07/25: Remains confused and delirious. Very poor by mouth intake. In A. fib on Cardizem drip at 5 mg per hour. Subjective: 07/26 Ash occluded and was replaced. Bladder scan with no evidence of retention. Delirium overnight. Rate controlled on digoxin IV and Cardizem drip at 5 mg/hr, not cooperative with po meds. 07/27: Hydration improved, renal function normalizing. Heart rate well controlled. Objective Vital Signs Date Time Temp Pulse Resp B/P (MAP) Pulse Ox O2 Delivery O2 Flow Rate FiO2 07/27/17 04:00 97.9 58 26 132/58 (82) 93 07/26/17 21:09 Nasal Cannula 4.00 Intake and Output 07/27/17 07/27/17 07/28/17 08:00 16:00 00:00 Intake Total 1280 ml Output Total 4200 ml Balance -2920 ml Result Diagram: 07/27/17 0530 07/27/17 0530 Imaging Last Impressions Chest X-Ray 07/25/17 0400 Signed Impressions: Service Date/Time: Tuesday, July 25, 2017 04:24 - CONCLUSION: Small left pleural effusion now seen along with adjacent mild left lower lobe consolidation versus atelectasis. Cardiac silhouette enlargement unchanged. Kevin Evangelista MD Head CT 07/23/17 0000 Signed Impressions: Service Date/Time: Sunday, July 23, 2017 13:17 - CONCLUSION: 1. Cerebral atrophy and ischemic small vessel vasculopathy. 2. Remote left cerebellar infarct. Nakul Finn MD Abdomen/Pelvis CT 07/23/17 0000 Signed Impressions: Service Date/Time: Sunday, July 23, 2017 13:19 - CONCLUSION: 1. Fluid-filled distention of the stomach and proximal to mid duodenum with transition zone identified in the fourth portion of duodenum. An obstructing process needs to be excluded. 2. Large calcified gallstone. 3. Simple left renal cyst. 4. Chronic fibrotic lung disease. 5. No evidence of acute diverticulitis. Eric Peralta MD Objective Remarks PHYSICAL EXAMINATION GENERAL: Confused 81-year-old female laying in ISC bed. HEENT: Atraumatic, normocephalic. Pupils equal, round and reactive to light and accommodation. Extraocular muscles intact. NECK: Supple. Airway widely patent. CARDIOVASCULAR: Irreg, rate 60s to 70s. No JVD. PULMONARY: Bilateral equal air entry, breathing comfortably on 5 L nasal cannula. Sats 98%. ABDOMEN: Soft, suprapubic tenderness without rebound. No distension. Positive bowel sounds. Ash catheter in bladder with feculent -appearing urine output EXTREMITIES: No cyanosis, clubbing or edema. Well perfused. NEURO: Awake, appears to be hallucinating. Moves all 4 extremities to command. Unable to answer questions of orientation A/P Assessment and Plan IMPRESSION: 1. Respiratory insufficiency. 2. Severe sepsis from urinary tract contamination (colovesical fistula) 3. Acute renal failure. 4. Lactic acidemia (resolved) 5. Hypernatremia and hyperkalemia. Chronic Hyponatremia, Acute dehydration ( resolved) 6. Leukocytosis. 7. Atrial fibrillation with RVR. 8. Chronic Anemia. 9. Colovesical fistula. 10. History of hypertension. 11. History of melanoma. 12. History of hyperparathyroidism. Plan: 1. Acute Delirium - Monitor neuro status closely and avoid sedatives/benzos. A CT scan of the brain in the ED showed cerebral atrophy and small-vessel ischemic vasculopathy, remote left cerebellar infarct. 2. Continue with oxygen and maintain sats above 92%. 3. Bronchodilators in the form of DuoNeb q. 6 plus q. 2 p.r.n. for shortness of breath. 4. Monitor heart rate and blood pressure closely and maintain MAP greater than 65 mmHg. lactic acidemia - lactic acid cleared. Digoxin for rate control, wean off cardizem gtt, consider transition to po Cardizem when able to reliably take po. She is not chronically on anticoagulation for her a fib. 5. 2-D echo from 07/24Normal LV EF at 55-60%. Left atrium at upper limits of normal size 6. Monitor renal function, Is and Os and avoid nephrotoxins. 7. On 0.45 NaCl with 20 mEq of KCl per liter at 84 mL per hour 8. Dr. Orr following and deciding regarding diverting colostomy and subsequent repair of colovesical fistula. Ash replaced today, flush intermittently as needed and evaluate patency. 9. Clear liquid diet per Dr. Orr, Pepcid 10 mg IV q. 12 for GI prophylaxis. 10. Continue with broad-spectrum antibiotics in the form of Cefepime and Metronidazole. Blood cultures from 07/23/17 are negative. 11. ID Service following, Dr. Johnson. 12. Monitor CBC and coags. 13. Low dose Sliding scale insulin if needed for glycemic control. 14. DVT prophylaxis with SCDs and heparin subcut. ACCESS - R I J CVL 07/24 #4. Discussed with Dr. Erikcson. Overall impression: General perfusion and renal function much improved. Remains a frail, elderly woman with colovesical fistula. Operative repair is a major undertaking in any patient and particularly difficult postoperatively in this weak woman. Family and surgeons discussing options, considering diversion of the GI tract. Blaine Velazquez MD Jul 27, 2017 08:32
[2017-07-27] MEDS: FAMOTIDINE 20 MG/2 ML VIAL IV PUSH SCH ×2 (08:42→20:44)
[2017-07-27] MEDS: ACETAMINOPHEN 1000 MG/100 ML 65 ML IV SCH ×3 (08:42→20:43)
[2017-07-27] MEDS: DIGOXIN 0.5 MG/2 ML VIAL IV PUSH SCH (08:43)
[2017-07-28] VITALS (7 sets, daily range): BP systolic 110–128; BP diastolic 52–62; PULSE 60–75; RESP 21–30; TEMP 97.6–98.7; O2SAT 92–98
[2017-07-28] MEDS: ACETAMINOPHEN 1000 MG/100 ML 65 ML IV SCH ×2 (01:28→08:00)
[2017-07-28] MEDS: CEFEPIME INJ 1,000 MG in SODIUM CHLORIDE 0.9% INJ 100 ML IV SCH (01:30)
[2017-07-28] MEDS: INSULIN NovoLIN REGULAR SUPPLEMENTAL SCALE SQ SCH ×3 (03:00→11:00)
[2017-07-28] MEDS: DILTIAZEM INJ 125 MG in SODIUM CHLORIDE 0.9% INJ 100 ML IV PRN (03:06)
[2017-07-28] MEDS: CHLORHEXIDINE GLUCONATE 2 % 1 PACK (2 CLOTHS) TOP SCH (03:54)
[2017-07-28 04:46] LABS: BASOPHIL # 0.1 TH/MM3 (0-0.2); BASOPHIL % 0.4 % (0.0-2.0); EOSINOPHIL # 0.7 TH/MM3 (0-0.4); EOSINOPHIL % 4.8 % (0.0-4.0); HEMATOCRIT 22.9 % (35.0-46.0); HEMO FLAGS DIFF FINAL; LYMPHOCYTE # 1.6 TH/MM3 (1.0-4.8); MEAN CELL VOLUME 93.7 FL (80.0-100.0); MEAN CORPUSCULAR HEMOGLOBIN 31.3 PG (27.0-34.0); MEAN CORPUSCULAR HGB CONC 33.4 % (32.0-36.0); MONO % 8.9 % (0.0-8.0); NEUT % 73.9 % (16.0-70.0); PLATELET COUNT 321 TH/MM3 (150-450); RED BLOOD COUNT 2.44 MIL/MM3 (4.00-5.30); RED CELL DISTRIBUTION WIDTH 15.7 % (11.6-17.2); WHITE BLOOD COUNT 13.6 TH/MM3 (4.0-11.0)
[2017-07-28] MEDS: metroNIDAZOLE 500 MG INJ 100 ML IV SCH (05:01)
[2017-07-28] MEDS: HEPARIN SODIUM - SQ 10,000 UNITS/ML VIAL SQ SCH (05:02)
[2017-07-28 05:14] LABS: MAGNESIUM 1.5 MG/DL (1.5-2.5); POTASSIUM 4.3 MEQ/L (3.5-5.1)
[2017-07-28] MEDS: 1/2 NS + KCL 20 MEQ INJ 1,000 ML IV SCH (08:15)
[2017-07-28] MEDS: FAMOTIDINE 20 MG/2 ML VIAL IV PUSH SCH (08:25)
[2017-07-28] MEDS: DIGOXIN 0.5 MG/2 ML VIAL IV PUSH SCH (08:25)
--- NOTE | 2017-07-28 08:30 | HHI.CCPN ---
Subjective Remarks/Hospital Course HISTORY OF PRESENT ILLNESS The patient is a 81-year-old female with past medical history of hypertension, melanoma, atrial fibrillation, who was scheduled to undergo surgery by Dr. Orr for colovesical fistula next Friday for recurrent urinary tract infections. She presented to [facility] ED via EMS after a syncopal episode in the bathroom. According to the report when she stood up she had a syncopal episode and EMS found the patient on the bathroom floor with emesis. She was in atrial fibrillation with RVR at a rate of 140s to 150s and systolic blood pressure in the 80s. She was given IV fluids and Cardizem. Most of the history was obtained from reviewing the medical records as she is lethargic and poor historian. Her initial blood pressure in the ED was 123/63 and her laboratory data was significant for leukocytosis with a WBC of 21.5 and acute renal failure with a BUN of 108, creatinine 3.89 and elevated lactic acid level at 5.2. Chest x-ray in the ED showed interstitial densities and mild cardiomegaly. In the ED she was given 1.5 liters of crystalloids and is currently receiving an additional 1 liter bolus. In addition she was given Rocephin and Zofran. She denies any abdominal pain, nausea, vomiting, chest pain , shortness of breath, cough or any constitutional symptoms. 07/24: Improving renal function with hydration. Intermittent a-fib with RVR. 07/25: Remains confused and delirious. Very poor by mouth intake. In A. fib on Cardizem drip at 5 mg per hour. Subjective: 07/26 Ash occluded and was replaced. Bladder scan with no evidence of retention. Delirium overnight. Rate controlled on digoxin IV and Cardizem drip at 5 mg/hr, not cooperative with po meds. 07/27: Hydration improved, renal function normalizing. Heart rate well controlled. 07/28: Renal function normal. Prealbumin 7. Heart rate well controlled. Moderate weight gain despite negative I&O. Update 1430 hours: Patient has sustained cardiac arrest due to sepsis and hypotension. She is now intubated and on ventilator. Her is adamant that she would not want this and he requests comfort measures and extubation immediately. He is clear in his thoughts and well oriented to the situation. We will abide by his wishes. Objective Vital Signs Date Time Temp Pulse Resp B/P (MAP) Pulse Ox O2 Delivery O2 Flow Rate FiO2 07/28/17 04:00 98.1 66 22 110/59 (76) 92 07/27/17 22:00 Nasal Cannula 3.00 Intake and Output 07/28/17 07/28/17 07/29/17 08:00 16:00 00:00 Intake Total 165 ml Output Total 750 ml Balance -585 ml Result Diagram: 07/28/17 0415 07/28/17 0415 Imaging Last Impressions Chest X-Ray 07/25/17 0400 Signed Impressions: Service Date/Time: Tuesday, July 25, 2017 04:24 - CONCLUSION: Small left pleural effusion now seen along with adjacent mild left lower lobe consolidation versus atelectasis. Cardiac silhouette enlargement unchanged. Kevni Evangelista MD Head CT 07/23/17 0000 Signed Impressions: Service Date/Time: Sunday, July 23, 2017 13:17 - CONCLUSION: 1. Cerebral atrophy and ischemic small vessel vasculopathy. 2. Remote left cerebellar infarct. Nakul Finn MD Abdomen/Pelvis CT 07/23/17 0000 Signed Impressions: Service Date/Time: Sunday, July 23, 2017 13:19 - CONCLUSION: 1. Fluid-filled distention of the stomach and proximal to mid duodenum with transition zone identified in the fourth portion of duodenum. An obstructing process needs to be excluded. 2. Large calcified gallstone. 3. Simple left renal cyst. 4. Chronic fibrotic lung disease. 5. No evidence of acute diverticulitis. Eric Peralta MD Objective Remarks PHYSICAL EXAMINATION GENERAL: Confused 81-year-old female laying in ISC bed. HEENT: Atraumatic, normocephalic. Pupils equal, round and reactive to light and accommodation. Extraocular muscles intact. NECK: Supple. Airway widely patent. CARDIOVASCULAR: Irreg, rate 60s. No JVD. PULMONARY: Bilateral equal air entry, breathing comfortably. Sats 96%. ABDOMEN: Soft, suprapubic tenderness without rebound. No distension. Positive bowel sounds. Ash catheter in bladder with feculent -appearing urine output EXTREMITIES: No cyanosis, clubbing or edema. Well perfused. NEURO: Awake, confused. Moves all 4 extremities to command. Unable to answer questions about orientation A/P Assessment and Plan IMPRESSION: 1. Respiratory insufficiency. 2. Severe sepsis from urinary tract contamination (colovesical fistula) 3. Acute renal failure. 4. Lactic acidemia (resolved) 5. Hypernatremia and hyperkalemia. Chronic Hyponatremia, Acute dehydration ( resolved) 6. Leukocytosis. 7. Atrial fibrillation with RVR. 8. Chronic Anemia. 9. Colovesical fistula. 10. History of hypertension. 11. History of melanoma. 12. History of hyperparathyroidism. Plan: 1. Acute Delirium - Monitor neuro status closely and avoid sedatives/benzos. 2. Continue with oxygen and maintain sats above 92%. 3. Bronchodilators in the form of DuoNeb q. 6 plus q. 2 p.r.n. for shortness of breath. 4. Monitor heart rate and blood pressure closely and maintain MAP greater than 65 mmHg. lactic acidemia - lactic acid cleared. She is not chronically on anticoagulation for her a fib. Digoxin for rate control. 5. 2-D echo from 07/24Normal LV EF at 55-60%. Left atrium at upper limits of normal size 6. Monitor renal function, Is and Os and avoid nephrotoxins. 7. On 0.45 NaCl with 20 mEq of KCl per liter at 84 mL per hour 8. Dr. Orr following and deciding regarding diverting colostomy and subsequent repair of colovesical fistula. Ash replaced today, flush intermittently as needed and evaluate patency. 9. Clear liquid diet per Dr. Orr, Pepcid 10 mg IV q. 12 for GI prophylaxis. 10. Continue with broad-spectrum antibiotics in the form of Cefepime and Metronidazole. Blood cultures from 07/23/17 are negative. 11. ID Service following, Dr. Johnson. 12. Monitor CBC and coags. 13. Low dose Sliding scale insulin if needed for glycemic control. 14. DVT prophylaxis with SCDs and heparin subcut. ACCESS - R I J CVL 07/24 #5. Overall impression: General perfusion and renal function much improved. Remains a frail, elderly woman with colovesical fistula. Operative repair is a major undertaking in any patient and particularly difficult postoperatively in this weak woman. Family and surgeons discussing options, considering diversion of the GI tract. Nutritional status poor. Blaine Velazquez MD Jul 28, 2017 08:30
[2017-07-28] MEDS ORDERED: D5-1/2 NS + KCL 10 MEQ INJ 1,000 ML IV SCH (10:00)
[2017-07-28] MEDS ORDERED: SODIUM CHLOR 0.9% 250 ML INJ 250 ML IV ONE (10:30)
--- NOTE | 2017-07-28 10:54 | HHI.IDPN ---
Subjective Subjective Remarks Patient is an 81-year-old female, with known history of colovesical fistula, has had problem with recurrent UTI, scheduled to have surgery July 29, admitted to the hospital after a syncopal episode. She apparently had a syncopal episode about 2 days prior to admission. On the day of admission she had another episode and she was in the bathroom. She has had very poor by mouth intake the last several days. She apparently hasn't had a bowel movement , and when she `urinates, she passes stool and air. She's had some burning. There's been no fever or chills. EMS was called when she had the syncopal episode, and she was in nature fibrillation with RVR and systolic pressure of 80s. She was given fluid resuscitation, and have blood pressure improved. Patient currently has NG tube in place, and she has maroon fluid coming out of her NG tube. She also has a Montiel catheter in place and the output looks like it's maroon color thick fluid. He has some mild abdominal pain. On admission her white count was elevated. Her creatinine was also elevated. She had a preop blood work and her creatinine was elevated at that time. Last June her creatinine was normal. She also had an elevated lactic acid on admission. She was admitted with possible sepsis. CT of the abdomen and pelvis did not show any abnormality. Infectious disease consultation has been requested to evaluate the patient with sepsis, and known history of colovesical fistula. Notes reviewed Temps ok BP good, not on pressors Liquid stool coming out from montiel Creatinine better BC negative Antibiotics Current Medications Cefepime Flagyl Medications (Trade) Dose Ordered Sig/April Route Start Time Stop Time Status Last Admin (NS Flush) 2 ml UNSCH PRN IVF 07/23/17 10:15 (Pepcid Inj) 10 mg Q12HR IV PUSH 07/23/17 13:45 07/28/17 08:25 (Duoneb Neb) 1 ampule Q2HR NEB PRN INH 07/23/17 13:45 Miscellaneous Information 1 Q361D XX 07/23/17 13:45 (Chlorhexidine 2% Cloth) 3 pack Taper DAILY@04 TOP 07/24/17 04:00 07/20/18 03:59 07/26/17 03:30 (Chlorhexidine 2% Cloth) 3 pack UNSCH PRN TOP 07/23/17 13:45 (D50w (Vial) Inj) 50 ml UNSCH PRN IV PUSH 07/23/17 14:00 (Glucagon Inj) 1 mg UNSCH PRN OTHER 07/23/17 14:00 (NovoLIN R SUPPLEMENTAL SCALE) 1 Q4H SQ 07/23/17 15:00 (Cozaar) 25 mg DAILY PO 07/24/17 09:00 Future Hold Diltiazem HCl 125 mg/Sodium Chloride 125 ml @ 5 mls/hr TITRATE PRN IV 07/24/17 12:00 07/28/17 03:06 Cefepime HCl 1000 mg/Sodium Chloride 100 ml @ 200 mls/hr Q12H IV 07/24/17 13:00 07/28/17 01:30 Metronidazole 100 ml @ 100 mls/hr Q8H IV 07/24/17 13:00 07/28/17 05:01 (Lanoxin Inj) 0.125 mg DAILY IV PUSH 07/25/17 09:00 07/28/17 08:25 (Morphine Inj) 2 mg Q3H PRN IV 07/26/17 01:30 07/27/17 17:15 Acetaminophen 65 ml @ 400 mls/hr Q6H IV 07/27/17 08:00 08/10/17 07:59 07/28/17 08:00 Potassium Chloride/Dextrose/ Sod Cl 1,000 ml @ 75 mls/hr [id number] IV 07/28/17 10:00 (Heparin Inj) 5,000 units Q12HR SQ 07/28/17 21:00 Sodium Chloride 250 ml @ 15 mls/hr ONCE ONCE IV 07/28/17 10:30 07/29/17 03:09 Lines RIJ TLC Past Medical History Hypertension Atrial fibrillation CHF EF 25-30% echo 04/26 Pulmonary fibrosis Pulmonary nodules Hyperparathyroidism Depression CKD Diverticulosis Recurrent UTI Known colovesical fistula Past Surgical History Melanoma, removal Shoulder arthropscopic surgery Bilateral TKA Diverticulosis/itis Colonoscopy 2013: pandiverticulosis severe. Allergies: Coded Allergies: ampicillin (Verified Allergy, Severe, 07/23/17) ciprofloxacin (Verified Allergy, Severe, Rash, 07/23/17) levofloxacin (Verified Allergy, Severe, Rash, 07/23/17) Objective . Vital Signs Date Time Temp Pulse Resp B/P (MAP) Pulse Ox O2 Delivery O2 Flow Rate FiO2 12/18/17 04:00 98.1 66 22 110/59 (76) 92 07/28/17 03:06 67 99/54 07/28/17 00:00 98.7 60 21 119/59 (79) 94 07/27/17 23:00 85 07/27/17 22:00 95 Nasal Cannula 3.00 07/27/17 21:45 97 Nasal Cannula 3.00 07/27/17 20:00 98.7 84 24 127/59 (81) 94 07/27/17 19:00 94 Nasal Cannula 5.00 07/27/17 16:00 99.1 54 17 89/50 (63) 94 07/27/17 15:00 75 07/27/17 12:00 97.8 76 29 95/47 (63) 94 . Laboratory Tests Test 07/27/17 05:30 07/28/17 04:15 White Blood Count 12.7 TH/MM3 13.6 TH/MM3 Red Blood Count 2.63 MIL/MM3 2.44 MIL/MM3 Hemoglobin 7.9 GM/DL 7.6 GM/DL Hematocrit 24.4 % 22.9 % Mean Corpuscular Volume 92.9 FL 93.7 FL Mean Corpuscular Hemoglobin 30.0 PG 31.3 PG Mean Corpuscular Hemoglobin Concent 32.2 % 33.4 % Red Cell Distribution Width 15.3 % 15.7 % Platelet Count 301 TH/MM3 321 TH/MM3 Mean Platelet Volume 7.9 FL 7.9 FL Neutrophils (%) (Auto) 70.9 % 73.9 % Lymphocytes (%) (Auto) 13.5 % 12.0 % Monocytes (%) (Auto) 10.2 % 8.9 % Eosinophils (%) (Auto) 5.2 % 4.8 % Basophils (%) (Auto) 0.2 % 0.4 % Neutrophils # (Auto) 9.0 TH/MM3 10.0 TH/MM3 Lymphocytes # (Auto) 1.7 TH/MM3 1.6 TH/MM3 Monocytes # (Auto) 1.3 TH/MM3 1.2 TH/MM3 Eosinophils # (Auto) 0.7 TH/MM3 0.7 TH/MM3 Basophils # (Auto) 0.0 TH/MM3 0.1 TH/MM3 CBC Comment DIFF FINAL DIFF FINAL Differential Comment Laboratory Tests Test 07/27/17 05:30 12/18/17 04:15 Blood Urea Nitrogen 25 MG/DL 20 MG/DL Creatinine 0.64 MG/DL 0.52 MG/DL Random Glucose 87 MG/DL 77 MG/DL Calcium Level 8.6 MG/DL 8.7 MG/DL Sodium Level 141 MEQ/L 141 MEQ/L Potassium Level 4.4 MEQ/L 4.3 MEQ/L Chloride Level 114 MEQ/L 114 MEQ/L Carbon Dioxide Level 19.3 MEQ/L 18.0 MEQ/L Anion Gap 8 MEQ/L 9 MEQ/L Estimat Glomerular Filtration Rate 89 ML/MIN 113 ML/MIN Magnesium Level 1.5 MG/DL Prealbumin 7 MG/DL Imaging Last Impressions Chest X-Ray 07/24/17 0000 Signed Impressions: Service Date/Time: July 00:35 - CONCLUSION: 1. Right central line tip in the right atrium. No pneumothorax seen on this semierect film. 2. Interval development of diffuse interstitial infiltrates throughout both lungs. Valente Longoria MD Head CT 07/23/17 0000 Signed Impressions: Service Date/Time: Sunday, July 23, 2017 13:17 - CONCLUSION: 1. Cerebral atrophy and ischemic small vessel vasculopathy. 2. Remote left cerebellar infarct. Nakul Finn MD Abdomen/Pelvis CT 07/23/17 0000 Signed Impressions: Service Date/Time: Sunday, July 23, 2017 13:19 - CONCLUSION: 1. Fluid-filled distention of the stomach and proximal to mid duodenum with transition zone identified in the fourth portion of duodenum. An obstructing process needs to be excluded. 2. Large calcified gallstone. 3. Simple left renal cyst. 4. Chronic fibrotic lung disease. 5. No evidence of acute diverticulitis. Eric Peralta MD Physical Exam GENERAL: resting, not in respiratory distress. SKIN: Cool and dry. No generalized rash, no ecchymoses and no evidence of embolic lesions. HEAD: Atraumatic. Normocephalic. No temporal wasting, or tenderness. EYES: Strawn conjunctiva. No petechia or hemorrhage. Pupils equal, round and reactive to light. Extraocular movements full and intact. No scleral icterus. No injection or drainage. EARS, NOSE AND THROAT: Nose without bleeding or purulent nasal discharge. No sinus tenderness. Mucous membranes pink and moist. No oral lesions noted. No exudate. No oral thrush. Has NGT in place, output is maroon color fluid NECK: Trachea midline. Supple and not tender, no meningeal signs CARDIOVASCULAR: Regular rate and rhythm. No murmurs, rubs or gallops heard RESPIRATORY: Clear to auscultation. Breath sounds equal bilaterally. No rales , wheezing or rhonchi ABDOMEN: Soft, nondistended, has diffuse abdominal tenderness. No guarding or rebound. Bowel sounds present and normoactive. No organomegaly. EXTREMITIES: No clubbing, cyanosis, or edema. No joint effusion, has good ROM. No calf tenderness. Cool NEUROLOGICAL: Awake and alert. Cranial nerves grossly intact. Motor grossly within normal limits. PSYCHIATRIC: Normal affect, calm and cooperative. LINE: No evidence of infection : Montiel in place, liquid stool output. Assessment & Plan Remarks IMPRESSION Syncope, etiology, had hypotension - has had poor po intake, and also has GIB - has known recurrent UTI, due to colovesical fistula - likely due to volume loss Sepsis, with shock GIB, ?upper, ?lower, has been taking ALeve PM for a while, also with known pandiverticulosis Known colovesical fistula and Hx recurrent UTI Allergy to PCN, has tolerated cephalosporins in the past Renal insufficiency, likely due to hypotension, prerenal, ?NSAID additional factor - resolved Leukocytosis, persistent, but lower RECOMMENDATION Continue IV Cefepime Continue IV Flagyl Possible diversion this week per CRS Monitor progress Imelda Johnson MD Jul 28, 2017 10:54
[2017-07-28] MEDS ORDERED: MAGNESIUM SULFATE 1 GM PREMIX 200 ML ONE (12:50)
[2017-07-28] MEDS ORDERED: CEFEPIME INJ 2,000 MG in SODIUM CHLORIDE 0.9% INJ 100 ML IV SCH (13:00)
--- NOTE | 2017-07-28 13:24 | PD.PROCEDR ---
Procedure Note Procedure Emergently intubated during CODE BLUE CPR in progress INTUBATION: The patient was put in optimal position for the procedure. Rapid sequence intubation was initiated by me using no meds as the patient was unresponsive. Direct laryngoscopy with Mac 4 blade grade 1 view of single attempt. The patient was intubated with a cuffed endotracheal tube. Tube placement was confirmed by visualization of the tube and balloon passing through the cords, capnometry and subsequent chest x-ray. Breath sounds were equal and well aerated bilaterally postintubation. No breath sounds over stomach. Patient tolerated procedure well. Ori Botello MD Jul 28, 2017 13:24
--- NOTE | 2017-07-28 13:29 | PD.PROCEDR ---
Procedure Note Procedure CPR NOTE: I responded to code blue in 1333. Patient was unresponsive and pulseless. Immediate CPR was started. Initially PEA, progressed quickly to asystole, Patient received 3 amp epinephrine, 1 amp bicarb and 2GM IV magnesium. Intubated during code. After 7 min, rhythm on monitor was noted to be coarse V fib. DCCV at 360 J with ROSC. Epinephrine gtt started to maintain MAP. Family will be updated Ori Botello MD Jul 28, 2017 13:29
--- NOTE | 2017-07-28 13:33 | PD.PROCEDR ---
Procedure Note Procedure REASON FOR PROCEDURE Hemodynamic monitoring PROCEDURE PERFORMED Right femoral arterial line, US guided CONSENT Emergency procedure post code blue DESCRIPTION OF THE PROCEDURE The patient was placed in supine, appropriate position. The area was exposed and cleansed with ChloraPrep, times two. Sterile drape was used to cover site exposed, under sterile conditions including cap, face mask, sterile gown, and sterile gloves. On second attempt, the introducer needle was inserted and arterial flash was obtained. The guide wire was then advanced without any restriction and the needle was removed. Using Seldinger technique the arterial catheter was advanced over the guide wire and guide wire was removed. Good arterial wave form obtained. Antibiotic disc was placed around central line at puncture site. The arterial line was secured to the skin with one interrupted 2.0 silk sutures. The area was bandaged with sterile see-through central line bandage. COMPLICATIONS: No apparent complications ESTIMATED BLOOD LOSS: Less than 1 cc. Ori Botello MD Jul 28, 2017 13:33
--- NOTE | 2017-07-28 14:11 | RADRPT ---
EXAM DATE/TIME: 07/28/2017 13:34 [facility] COMPARISON: CT ABDOMEN & PELVIS W/O CONTRAST, July 23, 2017, 13:19. CHEST SINGLE AP, July 25, 2017, 4:24 . INDICATIONS : Post intubation. MEDICAL HISTORY : Cardiovascular disease. Diverticulitis. Hypertension. SURGICAL HISTORY : None. ENCOUNTER: Subsequent ACUITY: 4 - 6 days PAIN SCORE: Non-responsive. LOCATION: Bilateral chest FINDINGS: Stable right IJ central line. Interval placement of ETT with tip approximately 1 cm above the reji. Redemonstration of left lower lobe airspace disease and trace left pleural effusion. Redemonstration of diffuse interstitial prominence similar to prior exams. Interval development was seen below the r ight hemidiaphragm concerning for free intraperitoneal air. CONCLUSION: 1. Interval development of lucency below the right hemidiaphragm concerning for free intraperitoneal air. 2. Remainder of the exam is unchanged including small left pleural effusion and associated left lower lobe airspace disease. Pollo Ramirez MD on July 28, 2017 at 14:01 Board Certified Radiologist. This report was verified electronically.
[2017-07-28] MEDS ORDERED: HYOSCYAMINE SOLN 0.125 MG/ML 15 ML BTL PO ONE (14:45)
[2017-07-28] MEDS ORDERED: MORPHINE SULFATE 8 MG/ML INJ IV PUSH ONE (14:45)
[2017-07-28] MEDS: MORPHINE SULFATE 2 MG/ML INJ IV PRN (14:53)
[2017-07-28] MEDS ORDERED: MIDAZOLAM HCL 5 MG/5 ML VIAL IV PUSH ONE (15:00)
--- NOTE | 2017-07-28 15:22 | PD.CONS ---
Consult Service Palliative Care . Consult Requested By Dr. Velazquez . Primary Care Physician Ede Singh MD, PhD . Reason for Consultation a. To assist with evaluation and management of symptoms including: dyspnea, pain, hallucinations. b. To assist medical decision maker(s) with: better understanding of current medical conditions; weighing benefits/burdens of medical treatment options; making medical treatment decisions. . HPI History of Present Illness Mrs. Leach is an 81 year old female with past medical history of hypertension, melanoma, atrial fibrillation, hyperparathyroidism and recent colovesical fistula. She has been being worked up for surgery with Dr. Orr. Patient presented to [facility] on 07/23/17 via EMS after she had a syncopal episode in the bathroom. Upon EMS arrival she was in A. Fib with RVR and systolic BP 80's. She has remained in ICU. She has had ongoing hallucinations which her reports were frightening. He was concerned about her quality of life. On 07/28/17 CODE BLUE was called at 1333. Patient was unresponsive and pulseless. CPR initiated. Initially PEA, progressed quickly to asystole, Patient received 3 amp epinephrine, 1 amp bicarb and 2GM IV magnesium. Intubated during code. After 7 min, rhythm on monitor was noted to be coarse V fib. DCCV at 360 J with ROSC. Epinephrine gtt started to maintain MAP. Patient was emergently intubated and placed on mech ventilation. Right femoral A. line was placed. Spouse was reportedly in oncology for his cancer treatment when the CODE BLUE occurred. He was immediately verbalizing desire to transition to comfort with withdrawal of life support. He verbalizes she would not want to live like this. She is not going to be able to have surgery for colovesical fistula and will likely to complications related to repeat infection due to fistula. He is certain she would not want to live like this. He is requesting to proceed with transition to comfort measures with withdrawal of life support as soon as possible. Dr. Velazquez, MURTAZA Méndez, nurse and strategic sourcing consultant met with spouse at bedside. Anticipatory guidance provided for withdrawal of life support. . Function/Cognitive Trajectory Has had ongoing decline, repeat infections and hallucinations. . Review of Systems ROS Limitations: Intubated, Unresponsive Constitutional: COMPLAINS OF: Fatigue, Change in appetite, Pain, Generalized weakness Respiratory: COMPLAINS OF: Shortness of breath Cardiovascular: COMPLAINS OF: Chest pain Gastrointestinal: COMPLAINS OF: Abdominal pain, Diarrhea Hematologic/Lymphatics: COMPLAINS OF: Bruising Psychiatric: COMPLAINS OF: Hallucinations Other ROS: ROS per EMR and spouse, pt unresponsive. Past Family Social History Coded Allergies: ampicillin (Verified Allergy, Severe, 07/23/17) ciprofloxacin (Verified Allergy, Severe, Rash, 07/23/17) levofloxacin (Verified Allergy, Severe, Rash, 07/23/17) Past Medical History Hypertension Atrial fibrillation CHF EF 25-30% echo 04/26 Pulmonary fibrosis Pulmonary nodules Hyperparathyroidism Depression CKD Diverticulosis Recurrent UTI Known colovesical fistula . Past Surgical History Melanoma, removal Shoulder arthropscopic surgery Bilateral TKA Diverticulosis/itis Colonoscopy 2013: pandiverticulosis severe. . Reported Medications Reported Meds & Active Scripts Active Bactrim DS (Sulfamethoxazole-Trimethoprim) 800-160 Mg Tab 1 Tab PO BID Reported [Franklin Red] 1 Cap PO DAILY Linguastat (Probiotic Product) 1.5 Billion Cell Cap 1 Cap PO DAILY Iron (Ferrous Sulfate) 18 Mg Tab 18 Mg PO DAILY Vitamin D3 (Cholecalciferol) 1,000 Unit Tab 1,000 Units PO DAILY Folic Acid 0.4 Mg Tab 400 Mcg PO DAILY Vitamin B12 (Cyanocobalamin) 500 Mcg Tab 500 Mcg PO DAILY Telmisartan 20 Mg Tab 20 Mg PO DAILY Aspirin EC (Aspirin) 325 Mg Tabdr 325 Mg PO DAILY . Current Medications Medications (Trade) Dose Ordered Sig/April Route Start Time Stop Time Status Last Admin (NS Flush) 2 ml UNSCH PRN IVF 07/23/17 10:15 (Pepcid Inj) 10 mg Q12HR IV PUSH 07/23/17 13:45 07/28/17 08:25 (Duoneb Neb) 1 ampule Q2HR NEB PRN INH 07/23/17 13:45 Miscellaneous Information 1 Q361D XX 07/23/17 13:45 (Chlorhexidine 2% Cloth) 3 pack Taper DAILY@04 TOP 07/24/17 04:00 07/20/18 03:59 07/26/17 03:30 (Chlorhexidine 2% Cloth) 3 pack UNSCH PRN TOP 07/23/17 13:45 (D50w (Vial) Inj) 50 ml UNSCH PRN IV PUSH 07/23/17 14:00 (Glucagon Inj) 1 mg UNSCH PRN OTHER 07/23/17 14:00 (NovoLIN R SUPPLEMENTAL SCALE) 1 Q4H SQ 07/23/17 15:00 (Cozaar) 25 mg DAILY PO 07/24/17 09:00 Future Hold Diltiazem HCl 125 mg/Sodium Chloride 125 ml @ 5 mls/hr TITRATE PRN IV 07/24/17 12:00 07/28/17 03:06 Metronidazole 100 ml @ 100 mls/hr Q8H IV 07/24/17 13:00 07/28/17 05:01 (Lanoxin Inj) 0.125 mg DAILY IV PUSH 07/25/17 09:00 07/28/17 08:25 (Morphine Inj) 2 mg Q3H PRN IV 07/26/17 01:30 07/27/17 17:15 Acetaminophen 65 ml @ 400 mls/hr Q6H IV 07/27/17 08:00 08/10/17 07:59 07/28/17 08:00 Potassium Chloride/Dextrose/ Sod Cl 1,000 ml @ 75 mls/hr [id number] IV 07/28/17 10:00 07/28/17 11:40 (Heparin Inj) 5,000 units Q12HR SQ 07/28/17 21:00 Sodium Chloride 250 ml @ 15 mls/hr ONCE ONCE IV 07/28/17 10:30 07/29/17 03:09 Cefepime HCl 2000 mg/Sodium Chloride 100 ml @ 200 mls/hr Q12H IV 07/28/17 13:00 Family History Pt. unresponsive, unable to obtain. . Substance Use Tobacco: none. Alcohol:occasional. Prescription med abuse: none. Illicits: none. . Psychosocial History . Lives in [place]. . Spiritual/Cultural Factors Religion heavenly. . Living Will: Completed, but not made available Health Care Surrogate: Never completed Durable Power of Delivery Stock Clerk: Never completed Health Care Surrogate(s): Patient is incapacitated to make her own health care decisions, will not regain capacity. According to [place] statutes, health care proxy decision making falls to her spouse, Adalid Leach. . Today's verbally stated goals: Patient is incapacitated to make her own health care decisions, will not regain capacity. . Family/friends goals: desires transition to comfort with withdrawal of life support. . Ethical and Legal Issues Patient is incapacitated to make her own health care decisions, will not regain capacity. According to [place] statutes, health care proxy decision making falls to her spouse, Adalid Leach. . Physical Exam Vital Signs Date Time Temp Pulse Resp B/P (MAP) Pulse Ox O2 Delivery O2 Flow Rate FiO2 07/28/17 04:00 98.1 66 22 110/59 (76) 92 07/28/17 03:06 67 99/54 07/28/17 00:00 98.7 60 21 119/59 (79) 94 07/27/17 23:00 85 07/27/17 22:00 95 Nasal Cannula 3.00 07/27/17 21:45 97 Nasal Cannula 3.00 07/27/17 20:00 98.7 84 24 127/59 (81) 94 07/27/17 19:00 94 Nasal Cannula 5.00 07/27/17 16:00 99.1 54 17 89/50 (63) 94 07/27/17 15:00 75 Exam CONSTITUTIONAL/GENERAL: This is an adequately nourished patient, intubated on vent. TUBES/LINES/DRAINS: ETT, wrist restraints, Ash, PIV right, femoral A line, SCDs. SKIN: Pale. Ecchymoses on upper extremities. Skin cool. HEAD: Atraumatic. Normocephalic. EYES: Pupils equal and round. ENT: Unable to assess hearing. Nose without bleeding or purulent drainage. Difficult to visualize due to tube. NECK: Trachea midline. CARDIOVASCULAR: Irregular rate and rhythm . RESPIRATORY/CHEST: unlabored respirations on vent. Diminished breath sounds. GASTROINTESTINAL: Abdomen soft, mildly distended. Bowel sounds hypoactive. GENITOURINARY: Without palpable bladder distension. Ash catheter in place. MUSCULOSKELETAL: Extremities without clubbing, cyanosis, or edema. LYMPHATICS: Not examined. NEUROLOGICAL: Unresponsive. eyes open, not tracking. PSYCHIATRIC: unresponsive. . Diagnostic Tests Laboratory Laboratory Tests Test 07/27/17 05:30 07/28/17 04:15 White Blood Count 12.7 TH/MM3 (4.0-11.0) 13.6 TH/MM3 (4.0-11.0) Red Blood Count 2.63 MIL/MM3 (4.00-5.30) 2.44 MIL/MM3 (4.00-5.30) Hemoglobin 7.9 GM/DL (11.6-15.3) 7.6 GM/DL (11.6-15.3) Hematocrit 24.4 % (35.0-46.0) 22.9 % (35.0-46.0) Mean Corpuscular Volume 92.9 FL (80.0-100.0) 93.7 FL (80.0-100.0) Mean Corpuscular Hemoglobin 30.0 PG (27.0-34.0) 31.3 PG (27.0-34.0) Mean Corpuscular Hemoglobin Concent 32.2 % (32.0-36.0) 33.4 % (32.0-36.0) Red Cell Distribution Width 15.3 % (11.6-17.2) 15.7 % (11.6-17.2) Platelet Count 301 TH/MM3 (150-450) 321 TH/MM3 (150-450) Mean Platelet Volume 7.9 FL (7.0-11.0) 7.9 FL (7.0-11.0) Neutrophils (%) (Auto) 70.9 % (16.0-70.0) 73.9 % (16.0-70.0) Lymphocytes (%) (Auto) 13.5 % (9.0-44.0) 12.0 % (9.0-44.0) Monocytes (%) (Auto) 10.2 % (0.0-8.0) 8.9 % (0.0-8.0) Eosinophils (%) (Auto) 5.2 % (0.0-4.0) 4.8 % (0.0-4.0) Basophils (%) (Auto) 0.2 % (0.0-2.0) 0.4 % (0.0-2.0) Neutrophils # (Auto) 9.0 TH/MM3 (1.8-7.7) 10.0 TH/MM3 (1.8-7.7) Lymphocytes # (Auto) 1.7 TH/MM3 (1.0-4.8) 1.6 TH/MM3 (1.0-4.8) Monocytes # (Auto) 1.3 TH/MM3 (0-0.9) 1.2 TH/MM3 (0-0.9) Eosinophils # (Auto) 0.7 TH/MM3 (0-0.4) 0.7 TH/MM3 (0-0.4) Basophils # (Auto) 0.0 TH/MM3 (0-0.2) 0.1 TH/MM3 (0-0.2) CBC Comment DIFF FINAL DIFF FINAL Differential Comment Blood Urea Nitrogen 25 MG/DL (7-18) 20 MG/DL (7-18) Creatinine 0.64 MG/DL (0.50-1.00) 0.52 MG/DL (0.50-1.00) Random Glucose 87 MG/DL (74-106) 77 MG/DL (74-106) Calcium Level 8.6 MG/DL (8.5-10.1) 8.7 MG/DL (8.5-10.1) Sodium Level 141 MEQ/L (136-145) 141 MEQ/L (136-145) Potassium Level 4.4 MEQ/L (3.5-5.1) 4.3 MEQ/L (3.5-5.1) Chloride Level 114 MEQ/L (98-107) 114 MEQ/L (98-107) Carbon Dioxide Level 19.3 MEQ/L (21.0-32.0) 18.0 MEQ/L (21.0-32.0) Anion Gap 8 MEQ/L (5-15) 9 MEQ/L (5-15) Estimat Glomerular Filtration Rate 89 ML/MIN (>89) 113 ML/MIN (>89) Magnesium Level 1.5 MG/DL (1.5-2.5) Prealbumin 7 MG/DL (20-40) Result Diagram: 07/28/17 0415 07/28/17 0415 Microbiology Microbiology Date/Time Source Procedure Growth Status 07/23/17 10:15 Blood Peripheral Aerobic Blood Culture - Final NO GROWTH IN 5 DAYS Complete 07/23/17 10:15 Blood Peripheral Anaerobic Blood Culture - Final NO GROWTH IN 5 DAYS Complete Imaging Last Impressions Chest X-Ray 07/28/17 0000 Signed Impressions: Service Date/Time: Friday, July 28, 2017 13:34 - CONCLUSION: 1. Interval development of lucency below the right hemidiaphragm concerning for free intraperitoneal air. 2. Remainder of the exam is unchanged including small left pleural effusion and associated left lower lobe airspace disease. Pollo Bozorgmanesh, MD Head CT 07/23/17 0000 Signed Impressions: Service Date/Time: Sunday, July 23, 2017 13:17 - CONCLUSION: 1. Cerebral atrophy and ischemic small vessel vasculopathy. 2. Remote left cerebellar infarct. Nakul Finn MD Abdomen/Pelvis CT 07/23/17 0000 Signed Impressions: Service Date/Time: Sunday, July 23, 2017 13:19 - CONCLUSION: 1. Fluid-filled distention of the stomach and proximal to mid duodenum with transition zone identified in the fourth portion of duodenum. An obstructing process needs to be excluded. 2. Large calcified gallstone. 3. Simple left renal cyst. 4. Chronic fibrotic lung disease. 5. No evidence of acute diverticulitis. Eric Peralta MD Procedures * 07/28/17 - CODE BLUE, intubation, femoral A line placed. . Patient/Family Conference Present at Family Conference: Keturah Poole ARNP, nurse and strategic sourcing consultant met with spouse at bedside. . Family Conference Time (mins): 20 Family Conference Location: Bedside Issues Discussed: * Palliative care role, purpose, approach * Additional medical, psychosocial, and spiritual history reviewed * Patient/family understanding of the current medical problems * Patient/family understanding of prognosis * Patients goals of care as best understood from advance directives and/or conversations and/or values * Current medical treatment options and benefits/burdens of those options * Likely scenarios comparing ongoing aggressive care with a transition to comfort measures only * Questions answered to the best of my ability * Palliative care contact information provided Spouse was reportedly in oncology for his cancer treatment when the CODE BLUE occurred. He was immediately verbalizing desire to transition to comfort with withdrawal of life support. He verbalizes she would not want to live like this. She is not going to be able to have surgery for colovesical fistula and will likely to complications related to repeat infection due to fistula. He is certain she would not want to live like this. He is requesting to proceed with transition to comfort measures with withdrawal of life support as soon as possible. Keturah Poole ARNP, nurse and strategic sourcing consultant met with spouse at bedside. Anticipatory guidance provided for withdrawal of life support. . Assessment and Plan Disease Oriented Problem List: (1) Atrial fibrillation with RVR (2) Acute renal failure (3) Septic shock (4) Colovesical fistula (5) HTN (hypertension) Symptom Scale: (1) Pain 0-10 Scale: Unable to quantify (2) Dyspnea 0-10 Scale: Unable to quantify (3) Hallucinations 0-10 Scale: Unable to quantify Pertinent Non-Medical Issues Psychosocial: to Adalid, lives in [place]. Spiritual: Religion hevaenly, supported by hospital strategic sourcing consultant. Legal:Patient is incapacitated to make her own health care decisions, will not regain capacity. According to [place] statutes, health care proxy decision making falls to her spouse, Adalid Leach. Ethical issues impacting care: No known concerns at this time. . Important Contacts * Adalid Leach, spouse: [phone] or [phone] . Prognosis Poor prognosis. . Code Status: No Code Plan * Patient is incapacitated to make her own health care decisions, will not regain capacity. According to [place] statutes, health care proxy decision making falls to her spouse, Adalid Leach. * NO CODE * Dr. Velazquez and I met with spouse, Adalid. After CODE, was immediately verbalizing desire to transition to comfort with withdrawal of life support. He verbalizes she would not want to live like this. She is not going to be able to have surgery for colovesical fistula and will likely to complications related to repeat infection due to fistula. He is certain she would not want to live like this. He is requesting to proceed with transition to comfort measures with withdrawal of life support as soon as possible. Declined hospice at this time. Comfort orders written by Dr. Velazquez. * [employer] Psychologist at bedside. * Exhibits B & C signed on chart. * SYMPTOMS: Dyspnea: on [facility] vent post cardiac arrest. Pain: due to recent arrest, colovesical fistula and declining status. Comfort orders written by Dr. Velazquez. Hallucinations: comfort orders written. * Palliative care number provided. * Palliative care will continue to follow to assist with comfort. . Thank you for the opportunity to participate in the care of Ms. Leach. Attestation To help prompt me to consider important information that might be impacting today's encounter and assessment, information from prior notes written by myself or my colleagues may have been "brought forward" into today's note. My signature on this note, however, is an attestation that I personally performed the exam, history, and/or decision-making noted today, and, unless otherwise indicated, the interactions with patient, family, and staff as well as the review of records all occurred today. I also attest that the listed assessment and stated plan reflect my best clinical judgment today based on the combination of historical information, prior notes, and today's exam/ interactions. When time spent is documented, it refers only to time spent today by the signer, or if indicated, combined time spent today by collaborating physician/nurse practitioner. Angelika Kenyon Jul 28, 2017 15:22
[2017-07-28] MEDS: MORPHINE SULFATE 8 MG/ML INJ IV PUSH PRN ×3 (15:30→16:30)
--- NOTE | 2017-07-28 17:19 | DEATH SUM ---
Summary Demographics Date Pronounced : Jul 28, 2017 Time Of : 16:55 Preliminary Cause of : Sepsis Blaine Velazquez MD Jul 28, 2017 17:19
--- NOTE | 2017-07-28 17:23 | HHI.DS ---
Discharge Summary Admission Date Jul 23, 2017 at 12:06 Discharge Date: Jul 28, 2017 Admitting Diagnosis septic shock, UTI, syncope, acute renal failure Procedures Intubation and mechanical ventilation. Brief History Colovesical fistula with severe sepsis. Sustained cardiac arrest on 07/28/17. CBC/BMP: 07/28/17 0415 07/28/17 0415 Significant Findings Laboratory Tests Test 07/27/17 05:30 07/28/17 04:15 White Blood Count 12.7 TH/MM3 (4.0-11.0) 13.6 TH/MM3 (4.0-11.0) Red Blood Count 2.63 MIL/MM3 (4.00-5.30) 2.44 MIL/MM3 (4.00-5.30) Hemoglobin 7.9 GM/DL (11.6-15.3) 7.6 GM/DL (11.6-15.3) Hematocrit 24.4 % (35.0-46.0) 22.9 % (35.0-46.0) Neutrophils (%) (Auto) 70.9 % (16.0-70.0) 73.9 % (16.0-70.0) Monocytes (%) (Auto) 10.2 % (0.0-8.0) 8.9 % (0.0-8.0) Eosinophils (%) (Auto) 5.2 % (0.0-4.0) 4.8 % (0.0-4.0) Neutrophils # (Auto) 9.0 TH/MM3 (1.8-7.7) 10.0 TH/MM3 (1.8-7.7) Monocytes # (Auto) 1.3 TH/MM3 (0-0.9) 1.2 TH/MM3 (0-0.9) Eosinophils # (Auto) 0.7 TH/MM3 (0-0.4) 0.7 TH/MM3 (0-0.4) Blood Urea Nitrogen 25 MG/DL (7-18) 20 MG/DL (7-18) Chloride Level 114 MEQ/L (98-107) 114 MEQ/L (98-107) Carbon Dioxide Level 19.3 MEQ/L (21.0-32.0) 18.0 MEQ/L (21.0-32.0) Prealbumin 7 MG/DL (20-40) Imaging CT abdomen - Possible perforated duodenal ulcer. PE at Discharge Transfer Summary While undergoing hydration and antibiotic treatment she sustained a cardiac arrest on 07/28/17. She required intubation and mechanical ventilation. Her decided at that point to withdraw artificial support and allow her to naturally. The Palliative Care Service helped the with his decision making concerns. Hospital Course HISTORY OF PRESENT ILLNESS The patient is a 81-year-old female with past medical history of hypertension, melanoma, atrial fibrillation, who was scheduled to undergo surgery by Dr. Orr for colovesical fistula next Friday for recurrent urinary tract infections. She presented to [facility] ED via EMS after a syncopal episode in the bathroom. According to the report when she stood up she had a syncopal episode and EMS found the patient on the bathroom floor with emesis. She was in atrial fibrillation with RVR at a rate of 140s to 150s and systolic blood pressure in the 80s. She was given IV fluids and Cardizem. Most of the history was obtained from reviewing the medical records as she is lethargic and poor historian. Her initial blood pressure in the ED was 123/63 and her laboratory data was significant for leukocytosis with a WBC of 21.5 and acute renal failure with a BUN of 108, creatinine 3.89 and elevated lactic acid level at 5.2. Chest x-ray in the ED showed interstitial densities and mild cardiomegaly. In the ED she was given 1.5 liters of crystalloids and is currently receiving an additional 1 liter bolus. In addition she was given Rocephin and Zofran. She denies any abdominal pain, nausea, vomiting, chest pain , shortness of breath, cough or any constitutional symptoms. 07/24: Improving renal function with hydration. Intermittent a-fib with RVR. 07/25: Remains confused and delirious. Very poor by mouth intake. In A. fib on Cardizem drip at 5 mg per hour. Subjective: 07/26 Ash occluded and was replaced. Bladder scan with no evidence of retention. Delirium overnight. Rate controlled on digoxin IV and Cardizem drip at 5 mg/hr, not cooperative with po meds. 07/27: Hydration improved, renal function normalizing. Heart rate well controlled. 07/28: Renal function normal. Prealbumin 7. Heart rate well controlled. Moderate weight gain despite negative I&O. Update 1430 hours: Patient has sustained cardiac arrest due to sepsis and hypotension. She is now intubated and on ventilator. Her is adamant that she would not want this and he requests comfort measures and extubation immediately. He is clear in his thoughts and well oriented to the situation. We will abide by his wishes. Pt Condition on Discharge: Deteriorating Blaine Velazquez MD Jul 28, 2017 17:23
[2017-07-28] MEDS ORDERED: HEPARIN SODIUM - SQ 10,000 UNITS/ML VIAL SQ SCH (21:00)
== END 2017-07-28 19:27 | disposition expired | DRG 871 ==
LOC: NEPC 09:59 → NEDA 12:06 → N03A 16:17
PROVIDERS: ADMIT Internal Medicine Critical Care Medicine; ATTEND Internal Medicine Critical Care Medicine
PROC: 0T9B70Z Drainage of Bladder with Drainage Device, Via Natural or Artificial Opening (ICD-10-PCS; principal; 2017-07-23)
PROC: 02H633Z Insertion of Infusion Device into Right Atrium, Percutaneous Approach (ICD-10-PCS; 2017-07-24)
PROC: 30233N1 Transfusion of Nonautologous Red Blood Cells into Peripheral Vein, Percutaneous Approach (ICD-10-PCS; 2017-07-24)
PROC: 04HY32Z Insertion of Monitoring Device into Lower Artery, Percutaneous Approach (ICD-10-PCS; 2017-07-28)
PROC: 5A1935Z Respiratory Ventilation, Less than 24 Consecutive Hours (ICD-10-PCS; 2017-07-28)
PROC: 0BH17EZ Insertion of Endotracheal Airway into Trachea, Via Natural or Artificial Opening (ICD-10-PCS; 2017-07-28)
PROC: 5A12012 Performance of Cardiac Output, Single, Manual (ICD-10-PCS; 2017-07-28)
PROC: 0CJS8ZZ Inspection of Larynx, Via Natural or Artificial Opening Endoscopic (ICD-10-PCS; 2017-07-28)
PROC: 5A2204Z Restoration of Cardiac Rhythm, Single (ICD-10-PCS; 2017-07-28)
DX: A41.9 Sepsis, unspecified organism (principal); R65.21 Severe sepsis with septic shock; N17.9 Acute kidney failure, unspecified; E87.2 Acidosis; E87.0 Hyperosmolality and hypernatremia; J84.10 Pulmonary fibrosis, unspecified; E87.1 Hypo-osmolality and hyponatremia; K92.2 Gastrointestinal hemorrhage, unspecified; I48.91 Unspecified atrial fibrillation; R55 Syncope and collapse; I10 Essential (primary) hypertension; N32.1 Vesicointestinal fistula; E21.3 Hyperparathyroidism, unspecified; E87.5 Hyperkalemia; E78.00 Pure hypercholesterolemia, unspecified; I45.10 Unspecified right bundle-branch block; R00.0 Tachycardia, unspecified; K57.90 Diverticulosis of intestine, part unspecified, without perforation or abscess without bleeding; D64.9 Anemia, unspecified; Z96.653 Presence of artificial knee joint, bilateral; I46.8 Cardiac arrest due to other underlying condition; I49.01 Ventricular fibrillation; E86.0 Dehydration; Z51.5 Encounter for palliative care; Z88.0 Allergy status to penicillin; Z87.440 Personal history of urinary (tract) infections; Z85.820 Personal history of malignant melanoma of skin; Z86.73 Personal history of transient ischemic attack (TIA), and cerebral infarction without residual deficits
CPT/HCPCS: 31500; 36430; 36556; 70450; 71010; 74176; 80048; 80053; 80162; 82550; 82552; 82948; 83605; 83735; 84100; 84134; 84484; 85014; 85018; 85025; 85610; 85730; 86850; 86900; 86901; 86920; 87040; 93005; 93306; 94002; 94640; 94664; 96374; 96375; J0131; J0692; J0696; J1160; J1644; J2250; J2270; J2370; J2405; J3475; J3480; J7030; J7040; J7042; J7060; P9016